=== PATIENT | male | born 1955 | race African-American/Black ===

== ENCOUNTER 2020-12-16 11:16 | Emergency (ER) | payer OTHER, SELFPAY ==
--- NOTE | ~2020-12-16 | XR_ITS ---
EXAMINATION: XR ELBOW, RIGHT CLINICAL INFORMATION: Pain COMPARISON: None TECHNIQUE: AP, lateral, and oblique views of the right elbow. FINDINGS: There is normal bony mineralization. No fracture, dislocation, or destructive process. No capsular effusion demonstrated. There is no joint narrowing or erosive change or chondrocalcinosis. No epicondylar or olecranon spurring. XR/XR elbow RT min 3V IMPRESSION: Normal right elbow.
[2020-12-16 13:55] VITALS: BP 139/80; PULSE 79; RESP 16; TEMP 37; O2SAT 99; BMI 25.1
--- NOTE | 2020-12-16 14:01 | ED.EXTPRO ---
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 Patient denies any blunt trauma to right upper extremity. Patient states no swelling, coldness, hotness, redness, chest pain, shortness of breath, fever, or chills. Patient states elbow pain on movement MD Complaint: extremity pain Related Data Home Medications Medication Instructions Recorded Confirmed aspirin 81 mg tablet,delayed 81 mg PO DAILY 03/14/20 06/20/20 release labetalol 200 mg tablet 200 mg PO BID 03/14/20 06/20/20 Previous Rx's Medication Instructions Recorded hydrochlorothiazide 25 mg tablet 25 mg PO DAILY #90 tab 04/12/20 cyclobenzaprine 10 mg PO TID PRN #18 tab 12/16/20 naproxen 500 mg PO BID PRN #20 tab 12/16/20 prednisone 40 mg PO DAILY 5 Days #10 tab 12/16/20 Allergies Allergy/AdvReac Type Severity Reaction Status Date / Time No Known Allergies Allergy Verified 06/20/20 09:20 [No Known Allergies*] Review of Systems Review of Systems: Yes all other systems are reviewed and are negative Constitutional: Constitutional: Reports as per HPI and Reports no additional constitutional complaints Eyes: Eyes: Reports as per HPI and Reports no additional eye complaints ENT: Reports system reviewed and no additional complaints, except as documented and Reports as per HPI Cardiovascular: Cardiovascular: Reports as per HPI and Reports no additional cardiovascular complaints Respiratory: Respiratory: Reports as per HPI and Reports no additional respiratory complaints Gastrointestinal: Gastrointestinal: Reports as per HPI and Reports no additional gastrointestinal complaints Genitourinary: Genitourinary: Reports no additional male genitourinary complaints and Reports as per HPI Musculoskeletal: Musculoskeletal: Reports no additional musculoskeletal complaints, Reports as per HPI and Reports arthralgias (Elbow pain) Neurologic: Reports system reviewed and no additional complaints, except as documented and Reports as per HPI [facility] Past Medical History Medical History (Updated 12/16/20 @ 14:42 by BARRY Rizo) High blood pressure Surgical History H/O rectal polypectomy Family History Family History Father Multiple sclerosis Mother Breast cancer Social History Social History Alcohol intake: current Alcohol intake frequency: holidays/special occasions only Advance Directives: Yes Advance Directives Information Provided: Yes Advance Directives on File: No Physical Exam Vital Signs: Vital Signs: Last Vital Signs Temp 98.6 F 12/16/20 13:55 Pulse 79 12/16/20 13:55 Resp 16 12/16/20 13:55 BP 139/80 12/16/20 13:55 Pulse Ox 99 12/16/20 13:55 Body Mass Index 25.1 Const: General: cooperative, healthy appearing, comfortable, no acute distress, well developed, alert, awake and Physically active Orientation/consciousness: patient oriented x3 HENMT: Head: Yes normal to inspection, Yes No palpable skull fracture present, Yes normocephalic, Yes atraumatic and No abrasion Eyes: General: appearance normal, both eyes and all related structures Neck: Neck: Yes normal visual inspection, Yes full ROM, Yes no lymphadenopathy, Yes no meningeal signs, Yes trachea midline, Yes supple and No tender Chest: Chest palpation & inspection: normal inspection of the chest and normal palpation of entire chest wall Resp: Effort & Inspection: normal respiratory effort and able to speak in complete sentences Cardio: Jugular venous distension: no JVD Heart sounds: S1 normal heart sound present and S2 normal heart sound present GI: Inspection: Yes normal to inspection and No abdominal wall ecchymosis Palpation (GI): Soft to palpation, not firm, nontender, no guarding and not rigid : General: No CVA tenderness and Yes no CVA tenderness Back/Spine/Pelvis: Back: no CVA tenderness, No CVA tenderness and No back tenderness Skin: General skin exam: no rashes or lesions noted and elasticity normal Neuro: General: patient oriented x3, gait normal, no meningeal signs and CN's II-XI intact bilaterally Cranial nerves: Yes CN's II-XII intact bilaterally Extrem: Shoulder/upper arm images: 1. Tenderness on the area and also pain on range of motion. Negative for any erythema, warmth,swelling, deformity, ecchymosis, or bluish/black discoloration. Vascular neuro exam is intact. Motor exam intact, but with pain. Rest of extremity negative for any tenderness, ecchymosis, erythema, deformity, coldness,or black bluish discoloration. Psych: Appearance: grossly normal, well kempt and not disheveled Course Course Course Narrative: Patient sent for elbow x-ray. Reevaluation(s) Reevaluation #1: X-ray negative for fracture. Patient informed he may have elbow sprain. Patient informed MRI to make sure there is no tendinitis/tenderness or ligament tear due to overuse of elbow. Not suspecting DVT, cellulitis, or arterial emboli. Time: 14:41 MDM - Extremity (Nontraumatic) MDM Narrative Medical decision making narrative: Elbow sprain Discharge Plan Discharge Clinical Impression: Elbow sprain Patient Disposition: Home, Self-Care Instructions: Elbow Sprain (ED) Additional Instructions: X-ray came back negative for fracture. Recommend follow-up with PCP for MRI if pain continues to evaluate for possible tendinitis, or ligament/tendon tear from overuse of right elbow. Rest right upper extremity for at least 3 days. Return to the ED immediately if there is any swelling, coldness, hotness, bluish black discoloration of fingertips, chest pain, shortness of breath, redness, red streaks, or any other concerning symptoms. Please follow-up with PCP Prescriptions: New naproxen 500 mg tablet 500 mg PO BID PRN (Reason: pain) Qty: 20 RF: 0 prednisone 20 mg tablet 40 mg PO DAILY 5 Days Qty: 10 RF: 0 cyclobenzaprine 10 mg tablet 10 mg PO TID PRN (Reason: pain) Qty: 18 RF: 0 No Action hydrochlorothiazide 25 mg tablet 25 mg PO DAILY Qty: 90 RF: 8 labetalol 200 mg tablet 200 mg PO BID RF: 0 aspirin [Adult Low Dose Aspirin] 81 mg tablet,delayed release (DR/EC) 81 mg PO DAILY RF: 0 Interventions: ED Discharge Assessment Last Done: 12/16/20 14:53 Discharge Date/Time: 12/16/20 14:53 Print Language: [place]ib[place]ian
[2020-12-16] MEDS: Ibuprofen 800 MG TABLET PO (14:18)
== END 2020-12-16 14:53 | disposition home or self-care (01) ==
PROVIDERS: Emergency Provider Emergency Medicine Emergency Medical Services; PCP Internal Medicine
DX: S53.401A Unspecified sprain of right elbow, initial encounter (principal); M79.621 Pain in right upper arm; X50.3XXA Overexertion from repetitive movements, initial encounter; Y93.H2 Activity, gardening and landscaping; Y92.9 Unspecified place or not applicable; Y99.9 Unspecified external cause status; Z79.899 Other long term (current) drug therapy; Z79.82 Long term (current) use of aspirin
CPT/HCPCS: 73080; 99283

== ENCOUNTER 2021-06-19 12:00 | Outpatient (REF) | payer OTHER, SELFPAY ==
[2021-06-19 12:20] LABS: Binax Internal Control QC Valid; Binax Now Covid-19 Ag Negative (Negative)
== END 2021-06-19 12:01 | disposition home or self-care (01) ==
LOC: HO.LAB 12:00
PROVIDERS: Visit Provider Internal Medicine
DX: Z20.822 Contact with and (suspected) exposure to COVID-19 (principal)
CPT/HCPCS: C9803

== ENCOUNTER 2021-10-16 08:42 | Outpatient (REF) | payer MEDICARE, MEDICAID, SELFPAY ==
[2021-10-16 09:23] LABS: MANUAL DIFF FLAG NO
[2021-10-16 09:41] LABS: Basophils Percent Auto 0.3 % (0-2); Eosinophils Absolute Auto 0.1 X10*3/uL (0.0-0.4); Eosinophils Percent Auto 1.9 % (0-4); Hematocrit 38.5 % (42.0-52.0); Hemoglobin 12.8 g/dl (14.0-18.0); Imm Gran Abs Auto 0.01 X10*3/uL (0.00-0.03); Imm Gran Pct Auto 0.2 % (0.0-0.4); Lymphocytes Percent Auto 31.1 % (20-40); Mean Corpuscular HGB Conc 33.2 g/dl (31.0-36.0); Mean Corpuscular Hemoglobin 31.3 pg (27.0-33.0); Mean Corpuscular Volume 94.1 fL (80.0-98.0); Mean Platelet Volume 9.6 fL (9.4-12.4); Monocytes Absolute Auto 0.4 X10*3/uL (0.1-1.2); Monocytes Percent Auto 6.3 % (2-11); Neutrophils Absolute Auto 3.9 x10*3/uL (2.0-8.3); Neutrophils Percent Auto 60.2 % (45-73); Platelet Count 152 X10*3/uL (160-400); Red Blood Count 4.09 X10*6/uL (4.60-5.80); Red Cell Distribution Width 14.8 % (11.0-16.0); White Blood Count 6.4 X10*3/uL (4.8-10.8)
[2021-10-16 10:03] LABS: Alanine Aminotransferase 20 U/L (0-40); Alkaline Phosphatase 41 U/L (39-117); Anion Gap 13 (12-20); Aspartate Amino Transferase 28 U/L (5-37); Bilirubin Total 0.9 mg/dL (0.0-1.0); Blood Urea Nitrogen 15 mg/dL (9-16); Calcium 9.2 mg/dL (8.4-10.2); Carbon Dioxide 28 mmol/L (22-29); Chloride 102 mmol/L (96-108); Cholesterol 227 mg/dL; Estimated Glomerular Filt Rate 49; Glucose Fasting 102 mg/dL (60-99); HDL Cholesterol 76 mg/dL; LDL Cholesterol Calculated 139 mg/dl; Potassium 3.7 mmol/L (3.3-5.1); Sodium 139 mmol/L (135-145); Total Protein 6.6 g/dL (6.5-8.0); Triglycerides 62 mg/dL
[2021-10-16 10:26] LABS: Prostate Specific Antigen Scr 3.52 ng/mL (<0.05-4.0); Thyroid Stimulating Hormone 7.64 uIU/mL (0.32-4.0)
== END 2021-10-16 08:43 | disposition home or self-care (01) ==
LOC: HO.LAB 08:42
PROVIDERS: PCP Internal Medicine; Visit Provider Internal Medicine
DX: Z00.00 Encounter for general adult medical examination without abnormal findings (principal); Z12.5 Encounter for screening for malignant neoplasm of prostate; Z13.0 Encounter for screening for diseases of the blood and blood-forming organs and certain disorders involving the immune mechanism; Z13.9 Encounter for screening, unspecified; I10 Essential (primary) hypertension
CPT/HCPCS: 36415; 80053; 80061; 84153; 84443; 85025

== ENCOUNTER 2023-02-27 08:46 | Outpatient (AMB) | payer MEDICARE, MEDICAID, SELFPAY ==
[2023-02-27 08:48] VITALS: BP 110/62; PULSE 92; O2SAT 96; BMI 22.7
--- NOTE | 2023-02-27 08:48 | A.OFFPC_ITS ---
Vital Signs 02/27/23 08:48 Height 5 ft 10 in Weight 158 lb BMI 22.7 BP 110/62 Blood Pressure Location Lt brachial Position Sitting Pulse 92 Pulse Source Pulse Oximeter Pulse Oximetry (%) 96 Oxygen Delivery Method Room Air Intake Visit Reasons: Cognitive check Optometry Teacher: Not Required per policy Accompanied by: Self / Same As Patient Allergies corn Allergy (Unknown, Verified 02/27/23 08:53) Unknown ragweed pollen Allergy (Unknown, Verified 02/27/23 08:53) Unknown Medication List - Last Reconciled 02/27/23 by Chauncey Gunter MD aspirin (Adult Low Dose Aspirin) 81 mg PO DAILY fluticasone propionate 50 mcg/actuation (Flonase Allergy Relief) 1 spray intranasal BID hydrochlorothiazide 25 mg PO DAILY labetalol 200 mg PO BID Tobacco use date assessed: 10/05/22 Fall risk assessment: No Falls in past year Last assessed Fall Risk: 02/27/23 Dental Screening Dental Screen Date: 02/27/23 Did you have a dental visit in the last 12 months?: No Did you have a dental problem in the last 6 months where you did not have access to dental care?: No Was dental information given to patient?: Patient has dentist HPI Cognitive check HPI Details Allergic rhinitis; on flonase but symptoms persist; not on antihis PFSH Medical History High blood pressure Surgical History H/O rectal polypectomy Family History Father Multiple sclerosis Mother Breast cancer Social History Housing: House Alcohol intake: current Alcohol intake frequency: a few times a week Patient Tobacco Use Status: Never used Tobacco e-Cigarette/Vaping Use: Never Used Second Hand Smoke Exposure: No service: No Current occupational status: unemployed Cognitive needs: No Hearing needs: No Vision needs: Yes (Glasses) Questionnaire PHQ-9 Over the last 2 weeks, how often have you been bothered by any of the following problems? 1. Little interest or pleasure in doing things: not at all 2. Feeling down, depressed, or hopeless: not at all 3. Trouble falling or staying asleep, or sleeping too much: not at all 4. Feeling tired or having little energy: not at all 5. Poor appetite or overeating: not at all 6. Feeling bad about yourself - or that you are a failure or have let yourself or your family down: not at all 7. Trouble concentrating on things, such as reading the newspaper or watching television: not at all 8. Moving or speaking so slowly that other people could have noticed. Or the opposite - being so fidgety or restless that you have been moving around a lot more than usual: not at all 9. Thoughts that you would be better off or of hurting yourself in some way: not at all Total score: 0 Depression Screening Interpretation: Negative Depression Screening Done: Yes Source: Developed by Drs. Fausto Bailey, Stefania Tiwari, Donald Ross and colleagues, with an educational durga from [employer]. Thrive Questionnaire Date Thrive assessed: 02/27/23 I am a: Patient What is your living situation today?: I have a steady place to live Within the past 12 months, did the food you bought not last and you didn't have the money to get more?: Never true Within the past 12 months, did you worry whether your food would run out before you got money to buy more?: Never true Do you have trouble paying for medicines?: No Do you have trouble getting transportation to medical appointments?: No Do you have trouble paying your heating and electricity bill?: No Do you have trouble taking care of your child, family member or friend?: No Do you have trouble with day-to-day activities such as bathing, preparing meals, shopping, managing finances, etc.?: No Are you currently unemployed and looking for a job?: No Are you interested in more education?: No Please select the resources that you would like help with: None AUDIT C Alcohol Use Questionnaire (AUDIT-C) 1. How often do you have a drink containing alcohol?: 2-3 times a week 2. How many drinks containing alcohol do you have on a typical day when you are drinking?: 1 or 2 Total Score: 3 JOYCE-7 AMB Questionnaire JOYCE-7 Date JOYCE - 7 assessed: 10/05/22 Source: Developed by Drs. Fausto Bailey, Stefania Tiwari, Donald Ross and colleagues, with an educational durga from [employer]. Review of Systems Const Denies chills, Denies headache(s) and Denies weight loss ENT Denies headache(s) Card Denies chest pain, Denies syncope, Denies irregular heart rhythm and Denies dyspnea Resp Denies chest congestion, Denies cough and Denies dyspnea GI Denies abdominal pain, Denies change in stool character, Denies nausea and Denies vomiting Musc Denies deformity and Denies joint swelling Neuro Denies syncope and Denies headache(s) Physical exam (Primary Care) Vital Signs: Last Vital Signs Pulse 92 02/27/23 08:48 BP 110/62 02/27/23 08:48 Pulse Ox 96 02/27/23 08:48 Oxygen Delivery Method Room Air 02/27/23 08:48 BMI result Body Mass Index 22.7 Tobacco/Smoking Status: Tobacco use Status Tobacco use date assessed 10/05/22 02/27/23 08:54 Patient Tobacco Use Status Never used Tobacco 02/27/23 08:54 e-Cigarette/Vaping Use Never Used 02/27/23 08:54 PHQ-9: PHQ-9 Score PHQ-9: Total score 0 02/27/23 08:54 Depression Screening Interpretation: Negative Thrive Assessment: Date of Thrive Assessment Date Thrive assessed 02/27/23 02/27/23 08:54 Const General: cooperative, comfortable, no acute distress and alert Neck Neck: Yes no lymphadenopathy Thyroid: Thyroid normal Resp Effort & Inspection: normal respiratory effort Auscultation: clear to auscultation bilaterally Percussion: percussion normal Cardio Jugular venous distension: no JVD Palpation: normal PMI Rate: regular rate Rhythm: regular rhythm Heart sounds: S1 normal heart sound present and S2 normal heart sound present GI Inspection: Yes normal to inspection Palpation (GI): No hepatosplenomegaly present Skin General skin exam: no rashes or lesions noted Extrem General: Yes no clubbing, cyanosis or edema Assessment and Plan Assessment & Plan (1) Allergic rhinitis: Code(s): J30.9 - Allergic rhinitis, unspecified Plan: add rx Medications: New loratadine (Allergy Relief (loratadine)) 10 mg PO DAILY 60 tabs 3RF Coding Level of Care Code Est Pt Level 3 (91573) Diagnoses Allergic rhinitis J30.9
== END 2023-02-27 09:10 | disposition home or self-care (01) ==
PROVIDERS: PCP Internal Medicine; Visit Provider Internal Medicine
DX: J30.9 Allergic rhinitis, unspecified (principal)
CPT/HCPCS: 99213

== ENCOUNTER 2023-03-22 09:33 | Outpatient (AMB) | payer MEDICARE, MEDICAID, SELFPAY ==
[2023-03-22 09:49] VITALS: BP 120/84; PULSE 88; O2SAT 100; BMI 22.8
--- NOTE | 2023-03-22 09:49 | A.OFFPC_ITS ---
Vital Signs 03/22/23 09:49 Height 5 ft 10 in Weight 159 lb BMI 22.8 BP 120/84 Blood Pressure Location Lt brachial Position Sitting Pulse 88 Pulse Source Pulse Oximeter Pulse Oximetry (%) 100 Oxygen Delivery Method Room Air Intake Visit Reasons: Annual exam Gyroscope Technician Required: No Accompanied by: Self / Same As Patient Allergies corn Allergy (Unknown, Verified 03/22/23 09:49) Unknown ragweed pollen Allergy (Unknown, Verified 03/22/23 09:49) Unknown Medication List - Last Reconciled 03/22/23 by Chauncey Gunter MD aspirin (Adult Low Dose Aspirin) 81 mg PO DAILY fluticasone propionate 50 mcg/actuation (Flonase Allergy Relief) 1 spray intr anasal BID hydrochlorothiazide 25 mg PO DAILY labetalol 200 mg PO BID loratadine (Allergy Relief (loratadine)) 10 mg PO DAILY Tobacco use date assessed: 10/05/22 Fall risk assessment: No Falls in past year Last assessed Fall Risk: 03/22/23 Dental Screening Dental Screen Date: 03/22/23 Did you have a dental visit in the last 12 months?: No Did you have a dental problem in the last 6 months where you did not have access to dental care?: No Was dental information given to patient?: Patient has dentist HPI Annual exam HPI Details HTN on Rx; doing well; compliant [facility] Medical History High blood pressure Surgical History H/O rectal polypectomy Family History Father Multiple sclerosis Mother Breast cancer Social History Housing: House Alcohol intake: current Alcohol intake frequency: a few times a week Patient Tobacco Use Status: Never used Tobacco e-Cigarette/Vaping Use: Never Used Second Hand Smoke Exposure: No service: No Current occupational status: unemployed Cognitive needs: No Hearing needs: No Vision needs: Yes (Glasses) Questionnaire PHQ-9 Over the last 2 weeks, how often have you been bothered by any of the following problems? 1. Little interest or pleasure in doing things: not at all 2. Feeling down, depressed, or hopeless: not at all 3. Trouble falling or staying asleep, or sleeping too much: not at all 4. Feeling tired or having little energy: not at all 5. Poor appetite or overeating: not at all 6. Feeling bad about yourself - or that you are a failure or have let yourself or your family down: not at all 7. Trouble concentrating on things, such as reading the newspaper or watching television: not at all 8. Moving or speaking so slowly that other people could have noticed. Or the opposite - being so fidgety or restless that you have been moving around a lot more than usual: not at all 9. Thoughts that you would be better off or of hurting yourself in some way: not at all Total score: 0 Depression Screening Interpretation: Negative Depression Screening Done: Yes 49704 - PHQ-9 Billing: Yes Source: Developed by Drs. Fausto Bailey, Stefania Tiwari, Donald Ross and colleagues, with an educational durga from [employer]. Thrive Questionnaire Date Thrive assessed: 02/27/23 AUDIT C Alcohol Use Questionnaire (AUDIT-C) 1. How often do you have a drink containing alcohol?: 2-3 times a week 2. How many drinks containing alcohol do you have on a typical day when you are drinking?: 1 or 2 Total Score: 3 JOYCE-7 AMB Questionnaire JOYCE-7 Date JOYCE - 7 assessed: 10/05/22 Source: Developed by Drs. Fausto Bailey, Stefania Tiwari, Donald Ross and colleagues, with an educational durga from [employer]. Review of Systems Const Denies chills, Denies fatigue, Denies headache(s) and Denies weight loss Eyes Denies change in vision, Denies diplopia and Denies eye pain ENT Denies vertigo, Denies dizziness, Denies headache(s) and Denies nasal discharge Card Denies chest pain, Denies rapid heart rate and Denies dyspnea on exertion Resp Denies chest congestion, Denies cough, Denies pain with cough and Denies dyspnea on exertion GI Denies abdominal pain, Denies hematochezia and Denies change in bowel habits Musc Denies myalgias, Denies arthralgias and Denies joint swelling Skin/Breast Denies lesions and Denies unusual bruising Neuro Denies vertigo, Denies dizziness, Denies headache(s) and Denies focal weakness Endo Denies fatigue Physical exam (Primary Care) Vital Signs: Last Vital Signs Pulse 88 03/22/23 09:49 BP 120/84 03/22/23 09:49 Pulse Ox 100 03/22/23 09:49 Oxygen Delivery Method Room Air 03/22/23 09:49 BMI result Body Mass Index 22.8 Tobacco/Smoking Status: Tobacco use Status Tobacco use date assessed 10/05/22 03/22/23 09:54 Patient Tobacco Use Status Never used Tobacco 03/22/23 09:54 e-Cigarette/Vaping Use Never Used 03/22/23 09:54 PHQ-9: PHQ-9 Score PHQ-9: Total score 0 03/22/23 09:54 Depression Screening Interpretation: Negative Thrive Assessment: Date of Thrive Assessment Date Thrive assessed 02/27/23 03/22/23 09:54 Const General: cooperative, healthy appearing and no acute distress Orientation/consciousness: oriented to person, oriented to place and oriented to time HENMT Head: Yes normal to inspection, Yes normocephalic and Yes atraumatic Mouth: Normal oral and palatal mucosa present and tongue normal Throat: Yes posterior oropharynx normal and Yes uvula midline Eyes General: appearance normal, both eyes and all related structures Neck Neck: Yes normal visual inspection, Yes full ROM and Yes no lymphadenopathy Thyroid: Thyroid normal Carotids: normal carotid upstroke Chest Chest palpation & inspection: normal inspection of the chest Resp Effort & Inspection: normal respiratory effort and able to speak in complete sentences Auscultation: clear to auscultation bilaterally Cardio Jugular venous distension: no JVD Palpation: normal PMI Rate: regular rate Rhythm: regular rhythm Heart sounds: S1 normal heart sound present and S2 normal heart sound present GI Inspection: Yes normal to inspection Palpation (GI): Soft to palpation and No hepatosplenomegaly present Auscultation: normal bowel sounds General: Yes no CVA tenderness Back/Spine/Pelvis Back: no CVA tenderness Skin General skin exam: no rashes or lesions noted Neuro General: oriented to person, oriented to place and oriented to time Extrem General: Yes normal to inspection and Yes full ROM Assessment and Plan Assessment & Plan (1) Physical exam: Code(s): Z00.00 - Encounter for general adult medical examination without abnormal findings Plan: do labs (2) Hypertension: Code(s): I10 - Essential (primary) hypertension Plan: stable; same rx Orders: Orders Comprehensive Rhame. Panel Fast Today N28.9 - Disorder of kidney and ureter, unspecified Lipid Panel Today E78.5 - Hyperlipidemia, unspecified Thyroid Stimulating Hormone Today E03.9 - Hypothyroidism, unspecified Complete Blood Count Auto Diff Today D64.9 - Anemia, unspecified Coding Level of Care Code Est Pt Prev Care >65y(78430) Diagnoses Physical exam Z00.00 Hypertension I10
== END 2023-03-22 10:30 | disposition home or self-care (01) ==
PROVIDERS: PCP Internal Medicine; Visit Provider Internal Medicine
DX: Z00.00 Encounter for general adult medical examination without abnormal findings (principal); I10 Essential (primary) hypertension
CPT/HCPCS: 99397

== ENCOUNTER 2023-03-23 09:22 | Outpatient (REF) | payer MEDICARE, MEDICAID, SELFPAY ==
[2023-03-23 10:18] LABS: Basophils Percent Auto 0.6 % (0-2); Eosinophils Absolute Auto 0.1 X10*3/uL (0.0-0.4); Eosinophils Percent Auto 1.1 % (0-4); Hematocrit 42.3 % (42.0-52.0); Hemoglobin 14.2 g/dl (14.0-18.0); Imm Gran Abs Auto 0.03 X10*3/uL (0.00-0.03); Imm Gran Pct Auto 0.6 % (0.0-0.4); MANUAL DIFF FLAG SCAN; Mean Corpuscular HGB Conc 33.6 g/dl (31.0-36.0); Mean Corpuscular Hemoglobin 32.2 pg (27.0-33.0); Mean Corpuscular Volume 95.9 fL (80.0-98.0); Mean Platelet Volume 10.4 fL (9.4-12.4); Monocytes Absolute Auto 0.3 X10*3/uL (0.1-1.2); Monocytes Percent Auto 5.7 % (2-11); Neutrophils Absolute Auto 2.8 x10*3/uL (2.0-8.3); PLT CLUMP 1; Red Blood Count 4.41 X10*6/uL (4.60-5.80); Red Cell Distribution Width 14.2 % (11.0-16.0); SCAN SMEAR FLAG 1
[2023-03-23 10:41] LABS: Alanine Aminotransferase 15 U/L (0-40); Alkaline Phosphatase 29 U/L (39-117); Anion Gap 17 (12-20); Aspartate Amino Transferase 28 U/L (5-37); Bilirubin Total 0.5 mg/dL (0.0-1.0); Blood Urea Nitrogen 14 mg/dL (9-16); Calcium 9.5 mg/dL (8.4-10.2); Carbon Dioxide 21 mmol/L (22-29); Chloride 106 mmol/L (96-108); Cholesterol 223 mg/dL (<200); Estimated Glomerular Filt Rate 51; Glucose Fasting 110 mg/dL (60-99); HDL Cholesterol 56 mg/dL (>40); LDL Cholesterol Calculated 148 mg/dL (<100); Potassium 3.8 mmol/L (3.3-5.1); Sodium 140 mmol/L (135-145); Total Protein 7.1 g/dL (6.5-8.0); Triglycerides 98 mg/dL (<150)
[2023-03-23 10:46] LABS: Platelet Count 127 X10*3/uL (160-400); White Blood Count 5.2 X10*3/uL (4.8-10.8)
[2023-03-23 10:47] LABS: SLIDE REVIEW VERIFIED
[2023-03-23 11:11] LABS: Thyroid Stimulating Hormone 5.06 uIU/mL (0.32-4.0)
== END 2023-03-23 09:23 | disposition home or self-care (01) ==
LOC: HO.LAB 09:22
PROVIDERS: PCP Internal Medicine; Visit Provider Internal Medicine
DX: N28.9 Disorder of kidney and ureter, unspecified (principal); D64.9 Anemia, unspecified; E03.9 Hypothyroidism, unspecified; E78.5 Hyperlipidemia, unspecified
CPT/HCPCS: 36415; 80053; 80061; 84443; 85025

== ENCOUNTER 2023-05-07 11:32 | Outpatient (REF) | payer MEDICARE, MEDICAID, SELFPAY ==
[2023-05-07 11:54] LABS: MANUAL DIFF FLAG NO
[2023-05-07 12:41] LABS: Basophils Percent Auto 0.5 % (0-2); Eosinophils Percent Auto 0.5 % (0-4); Hemoglobin 13.7 g/dl (14.0-18.0); Imm Gran Abs Auto 0.03 X10*3/uL (0.00-0.03); Imm Gran Pct Auto 0.4 % (0.0-0.4); Lymphocytes Percent Auto 24.7 % (20-40); Mean Corpuscular HGB Conc 34.3 g/dl (31.0-36.0); Mean Corpuscular Hemoglobin 32.4 pg (27.0-33.0); Mean Corpuscular Volume 94.6 fL (80.0-98.0); Monocytes Absolute Auto 0.5 X10*3/uL (0.1-1.2); Monocytes Percent Auto 5.7 % (2-11); Neutrophils Absolute Auto 5.6 x10*3/uL (2.0-8.3); Neutrophils Percent Auto 68.2 % (45-73); Platelet Count 167 X10*3/uL (160-400); Red Blood Count 4.23 X10*6/uL (4.60-5.80); Red Cell Distribution Width 13.9 % (11.0-16.0); White Blood Count 8.2 X10*3/uL (4.8-10.8)
[2023-05-07 13:14] LABS: Alanine Aminotransferase 12 U/L (0-40); Albumin Level 4.4 g/dL (3.5-5.0); Alkaline Phosphatase 43 U/L (39-117); Anion Gap 13 (12-20); Aspartate Amino Transferase 20 U/L (5-37); Bilirubin Total 0.9 mg/dL (0.0-1.0); Blood Urea Nitrogen 17 mg/dL (9-16); Calcium 9.7 mg/dL (8.4-10.2); Carbon Dioxide 28 mmol/L (22-29); Chloride 102 mmol/L (96-108); Estimated Glomerular Filt Rate 44; Glucose Random 121 mg/dL (60-115); Potassium 4.2 mmol/L (3.3-5.1); Sodium 139 mmol/L (135-145); Total Protein 7.3 g/dL (6.5-8.0)
== END 2023-05-07 11:33 | disposition home or self-care (01) ==
LOC: HO.LAB 11:32
PROVIDERS: PCP Internal Medicine; Visit Provider Internal Medicine Medical Oncology
DX: C81.90 Hodgkin lymphoma, unspecified, unspecified site (principal)
CPT/HCPCS: 36415; 80053; 85025

== ENCOUNTER 2023-05-14 13:15 | Outpatient (AMB) | payer MEDICARE, MEDICAID, SELFPAY ==
[2023-05-14 13:16] VITALS: BP 122/64; BMI 22.4
--- NOTE | 2023-05-14 13:16 | MHC.PC.OV ---
Vital Signs 05/14/23 13:16 Height 5 ft 10 in Weight 156 lb BMI 22.4 BP 122/64 Blood Pressure Location Lt brachial Position Sitting Pulse Source Pulse Oximeter Oxygen Delivery Method Room Air Intake Visit Reasons: possible gout on feet Air Gun Operator Required: No Supervisor [place]: Not Required per policy Accompanied by: Self / Same As Patient Allergies corn Allergy (Unknown, Verified 05/14/23 13:17) Unknown ragweed pollen Allergy (Unknown, Verified 05/14/23 13:17) Unknown Medication List - Last Reconciled 05/14/23 by Chauncey Gunter MD aspirin (Adult Low Dose Aspirin) 81 mg PO DAILY fluticasone propionate 50 mcg/actuation (Flonase Allergy Relief) 1 spray intranasal BID hydrochlorothiazide 25 mg PO DAILY labetalol 200 mg PO BID loratadine (Allergy Relief (loratadine)) 10 mg PO DAILY methylprednisolone (Medrol (Mynor)) PO PER PKG DIR Tobacco use date assessed: 10/05/22 Fall risk assessment: No Falls in past year Last assessed Fall Risk: 05/14/23 Dental Screening Dental Screen Date: 05/14/23 Did you have a dental visit in the last 12 months?: Yes Did you have a dental problem in the last 6 months where you did not have access to dental care?: No Was dental information given to patient?: Patient has dentist HPI possible gout on feet HPI Details right great to mtp swollen red and painful for a week PFSH Medical History High blood pressure Surgical History H/O rectal polypectomy Family History Father Multiple sclerosis Mother Breast cancer Social History Housing: House Alcohol intake: current Alcohol intake frequency: a few times a week Patient Tobacco Use Status: Never used Tobacco e-Cigarette/Vaping Use: Never Used Second Hand Smoke Exposure: No service: No Current occupational status: unemployed Cognitive needs: No Hearing needs: No Vision needs: Yes (Glasses) Questionnaire Thrive Questionnaire Date Thrive assessed: 02/27/23 JOYCE-7 AMB Questionnaire JOYCE-7 Date JOYCE - 7 assessed: 10/05/22 Source: Developed by Drs. Fausto Bailey, Stefania Tiwari, Donald oRss and colleagues, with an educational durga from [employer]. Review of Systems Const Denies chills, Denies headache(s) and Denies weight loss ENT Denies headache(s) Card Denies chest pain, Denies syncope, Denies irregular heart rhythm and Denies dyspnea Resp Denies chest congestion, Denies cough and Denies dyspnea GI Denies abdominal pain, Denies change in stool character, Denies nausea and Denies vomiting Musc Denies deformity and Denies joint swelling Neuro Denies syncope and Denies headache(s) Physical exam (Primary Care) Vital Signs: Last Vital Signs BP 122/64 05/14/23 13:16 Oxygen Delivery Method Room Air 05/14/23 13:16 BMI result Body Mass Index 22.4 Tobacco/Smoking Status: Tobacco use Status Tobacco use date assessed 10/05/22 05/14/23 13:22 Patient Tobacco Use Status Never used Tobacco 05/14/23 13:22 e-Cigarette/Vaping Use Never Used 05/14/23 13:22 Thrive Assessment: Date of Thrive Assessment Date Thrive assessed 02/27/23 05/14/23 13:22 Const General: cooperative, comfortable, no acute distress and alert Neck Neck: Yes no lymphadenopathy Thyroid: Thyroid normal Resp Effort & Inspection: normal respiratory effort Auscultation: clear to auscultation bilaterally Percussion: percussion normal Cardio Jugular venous distension: no JVD Palpation: normal PMI Rate: regular rate Rhythm: regular rhythm Heart sounds: S1 normal heart sound present and S2 normal heart sound present GI Inspection: Yes normal to inspection Palpation (GI): No hepatosplenomegaly present Skin General skin exam: no rashes or lesions noted Extrem General: Yes no clubbing, cyanosis or edema Assessment and Plan Assessment & Plan (1) Gout: Code(s): M10.9 - Gout, unspecified Orders: Orders Uric Acid Today M10.9 - Gout, unspecified XR foot RT 2V Today M79.673 - Pain in unspecified foot Medications: New methylprednisolone (Medrol (Mynor)) PO PER PKG DIR 21 ea 0RF Coding Level of Care Code Est Pt Level 3 (13158) Diagnoses Gout M10.9
== END 2023-05-14 13:37 | disposition home or self-care (01) ==
PROVIDERS: PCP Internal Medicine; Visit Provider Internal Medicine
DX: M10.9 Gout, unspecified (principal)
CPT/HCPCS: 99213

== ENCOUNTER 2023-05-14 13:43 | Outpatient (REF) | payer MEDICARE, MEDICAID, SELFPAY ==
[2023-05-14 15:17] LABS: Uric Acid 7.4 mg/dL (3.4-7.0)
== END 2023-05-14 13:44 | disposition home or self-care (01) ==
LOC: HO.XRAY 13:43
PROVIDERS: PCP Internal Medicine; Visit Provider Internal Medicine
DX: M10.9 Gout, unspecified (principal); M79.671 Pain in right foot
CPT/HCPCS: 36415; 73620; 84550

== ENCOUNTER 2023-07-23 11:23 | Outpatient (AMB) | payer MEDICARE, MEDICAID, SELFPAY ==
--- NOTE | 2023-07-23 11:28 | A.OFFPC_ITS ---
Vital Signs 07/23/23 11:29 Height 5 ft 10 in Weight 154 lb BMI 22.1 BP 102/70 Blood Pressure Location Lt brachial Position Sitting Pulse 90 Pulse Source Pulse Oximeter Pulse Oximetry (%) 100 Oxygen Delivery Method Room Air Intake Visit Reasons: follow up Meat Pickler Required: No Traffic Warehouse Supervisor: Not Required per policy Accompanied by: Self / Same As Patient Allergies corn Allergy (Unknown, Verified 07/23/23 11:29) Unknown ragweed pollen Allergy (Unknown, Verified 07/23/23 11:29) Unknown Medication List - Last Reconciled 07/23/23 by Chauncey Gunter MD aspirin (Adult Low Dose Aspirin) 81 mg PO DAILY hydrochlorothiazide 25 mg PO DAILY labetalol 200 mg PO BID Tobacco use date assessed: 07/23/23 Fall risk assessment: No Falls in past year Last assessed Fall Risk: 07/23/23 Dental Screening Dental Screen Date: 07/23/23 Did you have a dental visit in the last 12 months?: No Did you have a dental problem in the last 6 months where you did not have access to dental care?: No Was dental information given to patient?: Patient has dentist HPI follow up HPI Details HTN on Rx; doing well PFSH Medical History High blood pressure Surgical History H/O rectal polypectomy Family History Father Multiple sclerosis Mother Breast cancer Social History Housing: House Alcohol intake: current Alcohol intake frequency: a few times a week Patient Tobacco Use Status: Never used Tobacco e-Cigarette/Vaping Use: Never Used Second Hand Smoke Exposure: No service: No Current occupational status: unemployed Cognitive needs: No Hearing needs: No Vision needs: Yes (Glasses) Questionnaire PHQ-9 Over the last 2 weeks, how often have you been bothered by any of the following problems? 1. Little interest or pleasure in doing things: not at all 2. Feeling down, depressed, or hopeless: not at all 3. Trouble falling or staying asleep, or sleeping too much: not at all 4. Feeling tired or having little energy: not at all 5. Poor appetite or overeating: not at all 6. Feeling bad about yourself - or that you are a failure or have let yourself or your family down: not at all 7. Trouble concentrating on things, such as reading the newspaper or watching television: not at all 8. Moving or speaking so slowly that other people could have noticed. Or the opposite - being so fidgety or restless that you have been moving around a lot more than usual: not at all 9. Thoughts that you would be better off or of hurting yourself in some way: not at all Total score: 0 Depression Screening Interpretation: Negative Depression Screening Done: Yes 03035 - PHQ-9 Billing: Yes Source: Developed by Drs. Fausto Bailey, Stefania Tiwari, Donald Ross and colleagues, with an educational durga from [employer]. Thrive Questionnaire Date Thrive assessed: 07/23/23 JOYCE-7 AMB Questionnaire JOYCE-7 Date JOYCE - 7 assessed: 10/05/22 Source: Developed by Drs. Fausto Bailey, Stefania Tiwari, Donald Ross and colleagues, with an educational durga from [employer]. Review of Systems Const Denies chills, Denies headache(s) and Denies weight loss ENT Denies headache(s) Card Denies chest pain, Denies syncope, Denies irregular heart rhythm and Denies dyspnea Resp Denies chest congestion, Denies cough and Denies dyspnea GI Denies abdominal pain, Denies change in stool character, Denies nausea and Denies vomiting Musc Denies deformity and Denies joint swelling Neuro Denies syncope and Denies headache(s) Physical exam (Primary Care) Vital Signs: Last Vital Signs Pulse 90 07/23/23 11:29 BP 102/70 07/23/23 11:29 Pulse Ox 100 07/23/23 11:29 Oxygen Delivery Method Room Air 07/23/23 11:29 BMI result Body Mass Index 22.1 Tobacco/Smoking Status: Tobacco use Status Tobacco use date assessed 07/23/23 07/23/23 11:34 Patient Tobacco Use Status Never used Tobacco 07/23/23 11:28 e-Cigarette/Vaping Use Never Used 07/23/23 11:28 PHQ-9: PHQ-9 Score PHQ-9: Total score 0 07/23/23 11:34 Depression Screening Interpretation: Negative Thrive Assessment: Date of Thrive Assessment Date Thrive assessed 07/23/23 07/23/23 11:34 Const General: cooperative, comfortable, no acute distress and alert Neck Neck: Yes no lymphadenopathy Thyroid: Thyroid normal Resp Effort & Inspection: normal respiratory effort Auscultation: clear to auscultation bilaterally Percussion: percussion normal Cardio Jugular venous distension: no JVD Palpation: normal PMI Rate: regular rate Rhythm: regular rhythm Heart sounds: S1 normal heart sound present and S2 normal heart sound present GI Inspection: Yes normal to inspection Palpation (GI): No hepatosplenomegaly present Skin General skin exam: no rashes or lesions noted Extrem General: Yes no clubbing, cyanosis or edema Assessment and Plan Assessment & Plan (1) Hypertension: Code(s): I10 - Essential (primary) hypertension Plan: stable; same rx Coding Level of Care Code Est Pt Level 3 (86132) Diagnoses Hypertension I10
[2023-07-23 11:29] VITALS: BP 102/70; PULSE 90; O2SAT 100; BMI 22.1
== END 2023-07-23 11:44 | disposition home or self-care (01) ==
PROVIDERS: PCP Internal Medicine; Visit Provider Internal Medicine
DX: I10 Essential (primary) hypertension (principal)
CPT/HCPCS: 99213

== ENCOUNTER 2023-10-04 10:53 | Emergency (ER) | payer MEDICARE, MEDICAID, SELFPAY ==
--- NOTE | ~2023-10-04 | CT_ITS ---
EXAMINATION: CT HEAD WITHOUT CONTRAST CLINICAL INFORMATION: Found down on the ground, Blunt head trauma without loss of consciousness, significant head injury and posttraumatic headache. COMPARISON: CT scan of brain on 09/23/2010, MRI of brain on 11/13/2012 TECHNIQUE: Contiguous axial imaging was performed from the skull base to vertex without intravenous administration of contrast. This CT examination was performed using dose optimization techniques as appropriate, variously including the following: *Automated exposure control *Adjustment of mA and/or kV according to patient size (this includes techniques or standardized protocols for targeted exams where dose is matched to indication/reason for exam; i.e. extremities or head) *Use of iterative reconstruction technique DLP: 784.44 mGy-cm FINDINGS: Ventricles, sulci and cisterns are dilated. Sagittally oriented chronic cerebral infarction is seen in right parasagittal superior right parietal lobe. There is no midline shift, no abnormal intra- or extra- axial fluid accumulation. Traore and white matter differentiation is normal. Bone window images show no evidence of skull fracture. Anterior medial corner left sphenoid sinus polypoid mucosal lesion is seen measuring 1.0 x 0[address]/CT head/brain wo IV con IMPRESSION: 1. Interval development of cerebral atrophy and ventriculomegaly. 2. No acute intracranial hemorrhage or extra-axial fluid accumulation. 3. 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 4. Interval development of Left sphenoid sinus polypoid mucosal lesion.
[2023-10-04 11:00] VITALS: BP 131/74; BP 134/96; PULSE 82; PULSE 94; RESP 18; TEMP 36.7; O2SAT 92; O2SAT 98; BMI 22.8
--- NOTE | 2023-10-04 11:01 | ECG_ITS ---
Test Reason : FALL HEAD INJURY Blood Pressure : / mmHG Vent. Rate : 081 BPM Atrial Rate : 081 BPM P-R Int : 202 ms QRS Dur : 088 ms QT Int : 370 ms P-R-T Axes : 068 -47 001 degrees QTc Int : 429 ms Normal sinus rhythm Left anterior fascicular block Minimal voltage criteria for LVH, may be normal variant ( R in aVL ) Abnormal ECG When compared with ECG of 12-NOV-2012 07:37, Left anterior fascicular block is now Present Nonspecific T wave abnormality no longer evident in Lateral leads Referred By: Mario Alberto Flores Electronically Signed By:Ulisses Salcedo
--- NOTE | 2023-10-04 11:02 | ED_ITS ---
HPI - Head Injury General Chief complaint: Fall Stated complaint: FALL Time Seen by Provider: 10/04/23 10:57 Source: patient Mode of arrival: ambulatory Limitations: no limitations History of Present Illness HPI Narrative: 67-year-old male otherwise healthy does take medications for blood pressure states he was woken by his found him on the kitchen floor. He does not recall how he got there he denies falling he denies losing consciousness he denies chest pain cough fever nausea vomiting or diarrhea. Complaint: head injury Related Data Home Medications ?Medication ?Instructions ?Recorded ?Confirmed aspirin 81 mg tablet,delayed 81 mg PO DAILY 03/14/20 07/23/23 release (Adult Low Dose Aspirin) Previous Rx's ?Medication ?Instructions ?Recorded labetalol 200 mg tablet 200 mg PO BID #180 tabs 04/13/23 hydrochlorothiazide 25 mg tablet 25 mg PO DAILY #90 tabs 07/22/23 Allergies Allergy/AdvReac Type Severity Reaction Status Date / Time corn Allergy Unknown Unknown Verified 10/04/23 11:02 ragweed pollen Allergy Unknown Unknown Verified 10/04/23 11:02 Review of Systems 2 Review of Systems: Review of systems: General: Patient denies any fever chills recent illness or falls Musculoskeletal: Denies back pain or body aches or other injuries HEENT: denies headache, runny nose, ear pain Respiratory: denies shortness of breath, cough Cardiovascular: no chest pain or palpitations : denies dysuria, frequency Abdomen: no nausea vomiting denies abdominal pain Extremities: no swelling, no pain Skin: no diaphoresis Yes all other systems are reviewed and are negative [facility] Past Medical History Medical History High blood pressure Surgical History H/O rectal polypectomy Family History Family History Father Multiple sclerosis Mother Breast cancer Social History Social History Housing: House Alcohol intake: current Alcohol intake frequency: a few times a week Patient Tobacco Use Status: Never used Tobacco Smoked in Last 30 Days: No e-Cigarette/Vaping Use: Never Used Second Hand Smoke Exposure: No Use of substances other than those prescribed or required for medical reasons: Yes Substance Use Type: Marijuana Advance Directives: No Advance Directives Information Provided: No Do you have a plan to hurt others: No Plan service: No Current occupational status: unemployed Cognitive needs: No Hearing needs: No Vision needs: Yes (Glasses) Physical Exam 2 Vital Signs: Vital Signs: Last Vital Signs Temp 98.5 F 10/04/23 12:27 Pulse 78 10/04/23 12:27 Resp 14 10/04/23 12:27 BP 140/92 H 10/04/23 12:27 Pulse Ox 97 10/04/23 12:27 O2 Del Method Room Air 10/04/23 12:27 BMI result Body Mass Index 22.8 General: Well-appearing well-nourished in no signs of distress HEENT: Normocephalic no hemotympanum no septal hematoma patient does have 2 small abrasions to the posterior portion of the scalp Neck: No signs of JVD, no masses no tenderness or lymphadenopathy Cardiovascular: Regular rate and rhythm Respiratory: Clear to auscultation bilaterally Abdomen: Soft nontender no masses Extremities: Normal pedal pulses no signs of edema Skin: Dry warm no rashes Back: No tenderness full ROM Course Course Course Narrative: CT of the head was performed and negative patient was updated with his tetanus his labs are all unremarkable patient looks well EKG was done he denies syncope I think the patient safe to go home I will discharge home with close PCP follow- up Medications Administered Discontinued Medications Generic Name Dose Route Start Last Admin Trade Name Freq PRN Reason Stop Dose Admin Diphtheria/Tetanus/Acell Pertussis 0.5 ml 10/04/23 11:01 10/04/23 11:30 Diphth,Pertus(Acell),Tet Adult 0.5 Ml Syringe IM 10/04/23 11:02 0.5 ml .ONCE ONE Administration Medical Decision Making Medical Decision Making MDM Narrative: I will check labs and an EKG the patient for a CT scan Differential Diagnosis Differential Diagnoses: The differential diagnosis associated with the presentation includes Head injury scalp hematoma abrasion intracranial injury Lab Data [facility] Lab Attestation statement: I reviewed the patient's lab results. 10/04/23 11:57 10/04/23 11:32 Labs: Lab Results 05/10/24 05/10/24 Range/Units 11:57 12:15 RBC 4.39 L (4.60-5.80) X10*6/uL Hgb 14.1 (14.0-18.0) g/dl Hct 41.5 L (42.0-52.0) % MCV 94.5 (80.0-98.0) fL MCH 32.1 (27.0-33.0) pg MCHC 34.0 (31.0-36.0) g/dl RDW 15.2 (11.0-16.0) % Plt Count 128 L (160-400) X10*3/uL MPV 10.2 (9.4-12.4) fL Immature Gran % (Auto) Cancelled Neut % (Auto) Cancelled Lymph % (Auto) Cancelled [place] % (Auto) Cancelled Eos % (Auto) Cancelled Baso % (Auto) Cancelled Lymph # (Auto) Cancelled [place] # (Auto) Cancelled Eos # (Auto) Cancelled Baso # (Auto) Cancelled Abs Immat Gran (auto) Cancelled Absolute Neuts (auto) Cancelled Absolute Nucleated RBC 0.000 (0.0-0.012) X10*3/uL Nucleated RBC % (auto) 0.0 (0.0-0.2) /100WBC Hold Purple Top SEE NOTE Independent Interpretation I performed an independent interpretation of an: CT Scan Radiology Impression Discussion of test interpretation with radiology: I have reviewed the radiologist's reading. Discharge Plan Discharge Clinical Impression: Fall, Head injury Patient Disposition: Home, Self-Care Instructions: Head Injury (ED), Fall Prevention (ED) Additional Instructions: You were seen today for a head injury. You had labs and a CT done with was all unremarkable. Please call to follow up with your doctor. Prescriptions: No Action labetalol 200 mg tablet 200 mg PO BID Qty: 180 8RF hydrochlorothiazide 25 mg tablet 25 mg PO DAILY Qty: 90 8RF aspirin [Adult Low Dose Aspirin] 81 mg tablet,delayed release (DR/EC) 81 mg PO DAILY Print Language: Tamazight
--- NOTE | 2023-10-04 11:23 | PC.NURSE ---
patient a&ox4, pt went to CT scan after EKG performed, labs to be drawn, cardiac tech to be applied upon his return, will medicated per order, pt had no c/o pain or discomfort, will continue to monitor
[2023-10-04] MEDS: Diphth,Pertus(ACell),Tet Adult 0.5 ML SYRINGE IM (11:30)
[2023-10-04 12:09] LABS: Hematocrit 41.5 % (42.0-52.0); Hemoglobin 14.1 g/dl (14.0-18.0); Mean Corpuscular Hemoglobin 32.1 pg (27.0-33.0); Mean Corpuscular Volume 94.5 fL (80.0-98.0); Mean Platelet Volume 10.2 fL (9.4-12.4); Platelet Count 128 X10*3/uL (160-400); Red Blood Count 4.39 X10*6/uL (4.60-5.80); Red Cell Distribution Width 15.2 % (11.0-16.0)
[2023-10-04 12:10] LABS: WBC ABN SCTR FOR CBC 1
--- OUTSIDE RECORDS SUMMARY | 2023-10-04 12:11 | XMS_ITS | Patient Health Record ---
Author Organization Fausto Felder III, MD Address [address] [place] [address] Care Team Providers Care Quill Stripper Name Role Phone Chauncey Gunter MD Primary Care Provider Fausto Acosta Unavailable [phone] ALLERGIES Allergen (clinical drug ingredient) Drug/Non Drug Allergy documented on EMR Reaction Allergy Type Onset Date Status Ragweed Unknown Allergy Active Dewey Dewey Unknown Allergy Active RESULTS Component Value Reference Range Notes Complete Blood Count Auto Di ff Reviewed date:06/01/2023 08:44:45 PM Interpretation: Performing Lab:[facility], [address] [place] [id number] Notes/Report: White Blood Count 8.2 4.8-10.8 X10*3/uL Red Blood Count 4.23 4.60-5.80 X10*6/uL Hemoglobin 13.7 14.0-18.0 g/dl Hematocrit 40.0 42.0-52.0 % Mean Corpuscular Volume 94.6 80.0-98.0 fL Mean Corpuscular Hemoglobin 32.4 27.0-33.0 pg Mean Corpuscular HGB Conc 34.3 31.0-36.0 g/dl Red Cell Distribution Width 13.9 11.0-16.0 % Platelet Count 167 160-400 X10*3/uL Mean Platelet Volume 10.0 9.4-12.4 fL Neutrophils Percent Auto 68.2 45-73 % Imm Gran Pct Auto 0.4 0.0-0.4 % Lymphocytes Percent Auto 24.7 20-40 % Monocytes Percent Auto 5.7 2-11 % Eosinophils Percent Auto 0.5 0-4 % Basophils Percent Auto 0.5 0-2 % NRBC Pct Auto 0.0 0.0-0.2 /100WBC Neutrophils Absolute Auto 5.6 2.0-8.3 x10*3/u L Imm Gran Abs Auto 0.03 0.00-0.03 X10*3/uL Lymphocytes Absolute Auto 2.0 1.2-4.9 X10*3/u L Monocytes Absolute Auto 0.5 0.1-1.2 X10*3/uL Eosinophils Absolute Auto 0.0 0.0-0.4 X10*3/u L Basophils Absolute Auto 0.0 0.0-0.2 X10*3/uL NRBC Abs Auto 0.000 0.0-0.012 X10*3/uL Comprehensive Met. Panel Reviewed date:06/01/2023 08:44:45 PM Interpretation: Performing Lab:[facility], [address] [place] [id number] Notes/Report: Sodium 139 135-145 mmol/L Potassium 4.2 3.3-5.1 mmol/L Chloride 102 96-108 mmol/L Carbon Dioxide 28 22-29 mmol/L Anion Gap 13 12-20 Blood Urea Nitrogen 17 9-16 mg/dL Creatinine 1.59 0.5-1.4 mg/dL Estimated Glomerular Filt Rate 44 NOTE: For -[place] individuals, multiply the result by 1.210. Chronic Kidney Disease: Estimated GFR < 60 mL/min/1.73m2 Severe Kidney Disease: Estimated GFR < 15 mL/min/1.73m2 Glucose Random 121 60-115 mg/dL Calcium 9.7 8.4-10.2 mg/dL Bilirubin Total 0.9 0.0-1.0 mg/dL Aspartate Amino Transferase 20 5-37 U/L Alanine Aminotransferase 12 0-40 U/L Total Protein 7.3 6.5-8.0 g/dL Albumin Level 4.4 3.5-5.0 g/dL Alkaline Phosphatase 43 39-117 U/L REASON FOR REFERRAL No Information MEDICATIONS Medication SIG (Take, Route, Frequency, Duration) Notes Start Date End Date Status hydroCHLOROthiazide 25 MG TAKE 1 TABLET BY MOUTH EVERY DAY Oral Active Labetalol HCl 200 MG 1 tablet Orally Twi ce a day Active Adult Aspirin EC Low Strengt h 81 MG 1 tablet Orally Once a day Active SOCIAL HISTORY Tobacco Use: Social History Observation Description Date Details (start date - stop date) Never Smoker NA - NA Sex Assigned At : Social History Observation Description Sex Assigned At Unknown Tobacco Use/Smoking Question Answer Notes Patient is a nonsmoker Additional Findings: Tobacco Non-User Aggressive non-smoker Alcohol Screen Question Answer Notes Did you have a drink contain ing alcohol in the past year? Yes How often did you have a dri nk containing alcohol in the past year? 2 to 4 times a month (2 points) How many drinks did you have on a typical day when you were drinking in the past year? 1 or 2 drinks (0 point) How often did you have 6 or more drinks on one occasion in the past year? Never (0 point) Points 2 Interpretation Negative PROBLEMS Problem Type ICD Code Onset Dates Problem Status W/U Status Risk SNOMED Code Notes Problem Overweight (E66.3) Active confirmed 030940291 His weight is now in the normal range and this problem has resolved. Problem Hypertension (I10) Active confirmed [id number] His blood pres sure is well controlled today At 130/84 andno change in his regimen was indicated. Problem Colonic polyp (K63.5) Active confirmed [id number] His polyp was a tubular adenoma and routine five-year colonoscopies are indicated. He and I discussed this and he is aware of the necessity for this and will address this issue with his pipe stress engineer and primary care physician. Problem Stage IIA Hodgkin's disease (C81.90) Active confirmed [id number] There is no si gn of recurrent Hodgkin's disease today. No sign of a new primary lymphoma or other malignancy today. VITAL SIGNS Heart Rate 57 /min 05/31/2023 Temperature 97.7 degrees Fahrenheit 05/31/2023 Blood pressure diastolic 70 mm Hg 05/31/2023 Height 71 in 05/31/2023 Blood pressure systolic 120 mm Hg 05/31/2023 Weight 156 lbs 05/31/2023 BMI 21.76 kg/m2 05/31/2023 Encounters Encounter Location Date Provider Diagnosis Fausto Felder III, MD [address] [place] [address] [place] [phone] 03/25/2023 Fausto Felder Stage IIA Hodgkin's disease C81.90 ; Overweight E66.3 ; Colonic polyp K63.5 and Hypertension I10 Fausto Felder III, MD [address] [place] [address] [place] [id number] 05/31/2023 Fausto Felder Stage IIA Hodgkin's disease C81.90 ; Hypertension I10 ; Colonic polyp K63.5 and Overweight E66.3 Fausto Felder III, MD [address] [place] [address] [address] [place] [phone] 05/16/2023 Fausto Felder ASSESSMENTS Encounter Date Diagnosis Assessment Notes Treatment Notes Treatment Clinical Notes 03/25/2023 Overweight (ICD-10 - E66.3) His weight is now in the normal range and this problem has resolved. 03/25/2023 Stage IIA Hodgkin's disease (ICD-10 - C81.90) There is no sign of recurrent disease. However new primary lymphoma or other malignancy. He seems healthy and well. 05/31/2023 Hypertension (ICD-10 - I10) His blood pressure is well controlled today At 130/84 andno change in his regimen was indicated. 05/31/2023 Stage IIA Hodgkin's disease (ICD-10 - C81.90) There is no sign of recurrent Hodgkin's disease today. No sign of a new primary lymphoma or other malignancy today. 03/25/2023 Colonic polyp (ICD-10 - K63.5) His polyp was a tubular adenoma and routine five-year colonoscopies are indicated. He and I discussed this and he is aware of the necessity for this and will address this issue with his pipe stress engineer and primary care physician. 05/31/2023 Colonic polyp (ICD-10 - K63.5) His polyp was a tubular adenoma and routine five-year colonoscopies are indicated. He and I discussed this and he is aware of the necessity for this and will address this issue with his pipe stress engineer and primary care physician. 03/25/2023 Hypertension (ICD-10 - I10) His blood pressure is well controlled today At 130/84 andno change in his regimen was indicated. 05/31/2023 Overweight (ICD-10 - E66.3) His weight is now in the normal range and this problem has resolved. PLAN OF TREATMENT Pending Test Test Name Order Date PROFILE, RANDOM (COMPREHENSIVE METABOLIC ) 02/19/2017 PROFILE, RANDOM (COMPREHENSIVE METABOLIC ) 03/25/2023 LDH 02/19/2017 CBC w DIFF 02/19/2017 SED RATE (ESR) 02/19/2017 CBC WITH AUTO DIFF 03/25/2023 Next Appt Details Provider Name:Fausto Felder, 06/01/2024 10:00:00 AM, [address] [place] [address] , [address], [place], [phone], Insurance Providers Payer Name Payer Address Payer Phone Subscriber Number Group Number Insured Name Patient Relationship to Insured Coverage Start Date Coverage End Date [employer] Medicare [address] [place] [address] [id number] Louis Waters Self - patient is the insured MEDICARE [facility] [address] [place] [address] [id number] Louis Waters Self - patient is the insured MEDICAID [address] [place] [id number] Louis Waters Self - patient is the insured MEDICAL (GENERAL) HISTORY Medical History History ICD Code hypertension stage II Hodgkin's disease a ge 41 treated with radiation and chemotherapy 1996 2006 tubular adenoma on colonoscopy, las t 2016 hyperplastic and adenomatous colonic errol yps Surgical History Surgery Date(Month/Year) Cataract surgery 12/2021 colonoscopy, one hyperplastic polyp melinda 2013 colonoscopy,1 tubular adenoma 2007 dental extraction mediastinal node biopsy 1995
[2023-10-04 12:27] VITALS: BP 140/92; PULSE 78; RESP 14; TEMP 36.9; O2SAT 97
[2023-10-04 12:30] LABS: Band Neutrophils Percent 0 % (3-5); Basophils Percent Manual 1 % (0-2); Eosinophils Percent Manual 1 % (0-4); Lymphocytes Percent Manual 22 % (20-40); Monocytes Percent Manual 7 % (2-11); Neutrophils Percent Manual 69 % (45-73)
[2023-10-04 12:37] LABS: Platelet Estimate SLIGHTLY DECREASED (NORMAL); Platelet Morphology Comment NORMAL; RBC Morphology NORMAL
[2023-10-04 12:38] LABS: Basophils Abs Manual 0.1 X10*3/uL (0.0-0.2); Eosinophils Absolute Manual 0.1 X10*3/uL (0.0-0.4); Lymphocytes Absolute Manual 1.6 X10*3/uL (1.2-4.9); Monocytes Absolute Manual 0.5 X10*3/uL (0.1-1.2); White Blood Count 7.3 X10*3/uL (4.8-10.8)
[2023-10-04 12:39] LABS: Anion Gap 13 (12-20)
[2023-10-04 12:42] LABS: Blood Urea Nitrogen 13 mg/dL (9-16); Calcium 9.5 mg/dL (8.4-10.2); Carbon Dioxide 28 mmol/L (22-29); Chloride 105 mmol/L (96-108); Estimated Glomerular Filt Rate 52; Glucose Random 113 mg/dL (60-115); Potassium 4.4 mmol/L (3.3-5.1); Sodium 142 mmol/L (135-145)
[2023-10-04 13:44] VITALS: BP 162/92; PULSE 85; RESP 18; TEMP 36.7; O2SAT 96
== END 2023-10-04 13:45 | disposition home or self-care (01) ==
PROVIDERS: Emergency Provider Student in an Organized Health Care Education/Training Program; PCP Internal Medicine
DX: S09.90XA Unspecified injury of head, initial encounter (principal); S01.01XA Laceration without foreign body of scalp, initial encounter; R94.31 Abnormal electrocardiogram [ECG] [EKG]; R51.9 Headache, unspecified; W01.0XXA Fall on same level from slipping, tripping and stumbling without subsequent striking against object, initial encounter; Y93.9 Activity, unspecified; Y92.9 Unspecified place or not applicable; Y99.8 Other external cause status; Z79.899 Other long term (current) drug therapy; Z23 Encounter for immunization
CPT/HCPCS: 36415; 70450; 80048; 85007; 85025; 85027; 90471; 90715; 93005; 99284

== ENCOUNTER → 2023-10-04 11:01 | Outpatient (BNV) | payer MEDICARE, MEDICAID, SELFPAY | PROVIDERS: Emergency Provider Student in an Organized Health Care Education/Training Program; PCP Internal Medicine; Visit Provider Internal Medicine Cardiovascular Disease | DX: R94.01 Abnormal electroencephalogram [EEG] (principal) | CPT/HCPCS: 93010 ==

== ENCOUNTER 2023-10-18 13:30 | Outpatient (AMB) | payer MEDICARE, MEDICAID, SELFPAY ==
[2023-10-18 13:33] VITALS: BP 142/84; PULSE 90; O2SAT 98; BMI 22.8
--- NOTE | 2023-10-18 13:33 | A.OFFPC_ITS ---
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: Not Required per policy Accompanied by: Self / Same As Patient Allergies corn Allergy (Unknown, Verified 10/18/23 13:33) Unknown ragweed pollen Allergy (Unknown, Verified 10/18/23 13:33) Unknown Tobacco use date assessed: 07/23/23 Fall risk assessment: 1 Fall in past year Last assessed Fall Risk: 10/18/23 Dental Screening Dental Screen Date: 07/23/23 HPI [facility] [place] Fall HPI Details found on floor unconcious by girlfriend; difficult to arouse but when she did he was confused and not acting himself for an hour; in er w/u neg including mri head; occured a week ago and feels well now [facility] Medical History High blood pressure Surgical History H/O rectal polypectomy Family History Father Multiple sclerosis Mother Breast cancer Social History Housing: House Alcohol intake: current Alcohol intake frequency: a few times a week Patient Tobacco Use Status: Never used Tobacco e-Cigarette/Vaping Use: Never Used Second Hand Smoke Exposure: No Substance Use Type: Marijuana service: No Current occupational status: unemployed Cognitive needs: No Hearing needs: No Vision needs: Yes (Glasses) Questionnaire Thrive Questionnaire Date Thrive assessed: 07/23/23 JOYCE-7 AMB Questionnaire JOYCE-7 Date JOYCE - 7 assessed: 10/05/22 Source: Developed by Drs. Fausto Bailey, Stefania Tiwari, Donald Ross and colleagues, with an educational durga from [employer]. Review of Systems Const Denies chills, Denies headache(s) and Denies weight loss ENT Denies headache(s) Card Denies chest pain, Denies syncope, Denies irregular heart rhythm and Denies dyspnea Resp Denies chest congestion, Denies cough and Denies dyspnea GI Denies abdominal pain, Denies change in stool character, Denies nausea and Denies vomiting Musc Denies deformity and Denies joint swelling Neuro Denies syncope and Denies headache(s) Physical exam (Primary Care) Vital Signs: Last Vital Signs Pulse 90 10/18/23 13:33 BP 142/84 H 10/18/23 13:33 Pulse Ox 98 10/18/23 13:33 Oxygen Delivery Method Room Air 10/18/23 13:33 BMI result Body Mass Index 22.8 Tobacco/Smoking Status: Tobacco use Status Tobacco use date assessed 07/23/23 10/18/23 13:34 Patient Tobacco Use Status Never used Tobacco 10/18/23 13:34 e-Cigarette/Vaping Use Never Used 10/18/23 13:34 Thrive Assessment: Date of Thrive Assessment Date Thrive assessed 07/23/23 10/18/23 13:34 Const General: cooperative, comfortable, no acute distress and alert Neck Neck: Yes no lymphadenopathy Thyroid: Thyroid normal Resp Effort & Inspection: normal respiratory effort Auscultation: clear to auscultation bilaterally Percussion: percussion normal Cardio Jugular venous distension: no JVD Palpation: normal PMI Rate: regular rate Rhythm: regular rhythm Heart sounds: S1 normal heart sound present and S2 normal heart sound present GI Inspection: Yes normal to inspection Palpation (GI): No hepatosplenomegaly present Skin General skin exam: no rashes or lesions noted Extrem General: Yes no clubbing, cyanosis or edema Assessment and Plan Assessment & Plan (1) Loss of consciousness: Code(s): R40.20 - Unspecified coma Plan: possible Sz with post-ictal confusion; refer to neuro Orders: Referrals Neurology Referral R40.20 - Unspecified coma Coding Level of Care Code Est Pt Level 3 (69502) Diagnoses Loss of consciousness R40.20
== END 2023-10-18 13:52 | disposition home or self-care (01) ==
PROVIDERS: PCP Internal Medicine; Visit Provider Internal Medicine
DX: R40.20 Unspecified coma (principal)
CPT/HCPCS: 99213

== ENCOUNTER 2023-11-22 07:18 | Day surgery (SDC) | payer MEDICARE, MEDICAID, SELFPAY ==
[2023-11-20 09:25] VITALS: BMI 23.0
--- NOTE | 2023-11-21 09:40 | P.CONAN_ITS ---
HPI - Anesthesia Eval Consult details Narrative: 68yo M for Colonoscopy Syncopal [place]2023[place] [facility] [place]. Eval by PCP post ED discharge, pt feeling well with no further episodes. Referred to neuro with visit 11/21/23. Visit note requested. PMFSH Active Problems Active Problems: All Active Problems Loss of consciousness (Acute) Gout (Acute) Physical exam (Acute) Allergic rhinitis (Acute) Preop exam for internal medicine (Acute) Hypertension (Acute) Past Medical History Medical History Tubular adenoma Hx of radiation therapy History of chemotherapy Hodgkins disease Syncope High blood pressure Family History Family History Father Multiple sclerosis Mother Breast cancer Surgical History Surgical History Hx of surgical procedure H/O colonoscopy H/O rectal polypectomy Social History Social History Housing: House Alcohol intake: current Alcohol intake frequency: a few times a week Patient Tobacco Use Status: Never used Tobacco Smoked in Last 30 Days: No e-Cigarette/Vaping Use: Never Used Second Hand Smoke Exposure: No Use of substances other than those prescribed or required for medical reasons: No Substance Use Type: Marijuana Advance Directives: No Advance Directives Information Provided: Yes service: No Current occupational status: unemployed Cognitive needs: No Hearing needs: No Vision needs: Yes (Glasses) Meds Allergies Allergy/AdvReac Type Severity Reaction Status Date / Time corn Allergy Unknown Unknown Verified 11/26/23 09:04 ragweed pollen Allergy Unknown Unknown Verified 11/26/23 09:04 Exam Height,Weight and Vital Signs: Height 5 ft 10 in Weight 72.575 kg Pertinent Lab Results Pertinent Lab Results: Laboratory Tests 10/04/23 10/04/23 11:57 12:13 WBC 7.3 Hgb 14.1 Hct 41.5 L Plt Count 128 L Sodium 142 Potassium 4.4 Chloride 105 Carbon Dioxide 28 BUN 13 Creatinine 1.37 Narrative Narrative: EKG 09/2023 Vent. Rate : 081 BPM Atrial Rate : 081 BPM P-R Int : 202 ms QRS Dur : 088 ms QT Int : 370 ms P-R-T Axes : 068 -47 001 degrees QTc Int : 429 ms Normal sinus rhythm Left anterior fascicular block Minimal voltage criteria for LVH, may be normal variant ( R in aVL ) Abnormal ECG When compared with ECG of 12-NOV-2012 07:37, Left anterior fascicular block is now Present Nonspecific T wave abnormality no longer evident in Lateral leads CT head/brain wo IV con 09/2023 IMPRESSION: 1. Interval development of cerebral atrophy and ventriculomegaly. 2. No acute intracranial hemorrhage or extra-axial fluid accumulation. 3. 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 4. Interval development of Left sphenoid sinus polypoid mucosal lesion. Assessment and Plan Assessment Anesthesia Assessment: Chart Reviewed
--- OUTSIDE RECORDS SUMMARY | 2023-11-22 07:20 | XMS_ITS | Patient Health Record ---
Author Organization Fausto Felder III, MD Address [address] [place] [address] Care Team Providers Care Application Security Engineer Name Role Phone Chauncey Gunter MD Primary Care Provider Fausto Acosta Unavailable [phone] ALLERGIES Allergen (clinical drug ingredient) Drug/Non Drug Allergy documented on EMR Reaction Allergy Type Onset Date Status Ragweed Unknown Allergy Active [place] Unknown Allergy Active RESULTS Component Value Reference Range Notes Complete Blood Count Auto Di ff Reviewed date:06/01/2023 08:44:45 PM Interpretation: Performing Lab:[facility], [address] [place] [phone] Notes/Report: White Blood Count 8.2 4.8-10.8 X10*3/uL [...] Panel Reviewed date:06/01/2023 08:44:45 PM Interpretation: Performing Lab:[facility], [address] [place] [phone] Notes/Report: Sodium 139 135-145 mmol/L Potassium 4.2 3.3-5.1 mmol/L Chloride 102 96-108 mmol/L Carbon Dioxide 28 22-29 mmol/L Anion Gap 13 12-20 Blood Urea Nitrogen 17 9-16 mg/dL Creatinine 1.59 0.5-1.4 mg/dL Estimated Glomerular Filt Rate 44 NOTE: For -Filipino individuals, multiply the result by 1.210. Chronic [...] Code Notes Problem Overweight (E66.3) Active confirmed [id number] His weight is now in the normal range and this problem has resolved. Problem Hypertension (I10) Active confirmed 23868426 His blood pres sure is well controlled today At 130/84 andno change in his regimen was indicated. Problem Colonic polyp (K63.5) Active confirmed 18087521 His polyp was a tubular adenoma and routine five-year colonoscopies are indicated. He and I discussed this and he is aware of the necessity for this and will address this issue with his dandy operator and primary care physician. Problem Stage IIA Hodgkin's disease (C81.90) Active confirmed 872482785 There is no si gn of recurrent [...] Date Provider Diagnosis Fausto Felder III, MD [address] [place] [address] [place] [phone] 03/25/2023 Fausto Felder Stage IIA Hodgkin's disease C81.90 ; Overweight E66.3 ; Colonic polyp K63.5 and Hypertension I10 Fausto Felder III, MD [address] [place] [address] [place] [phone] 05/31/2023 Fausto Felder Stage IIA Hodgkin's disease C81.90 ; Hypertension I10 ; Colonic polyp K63.5 and Overweight E66.3 Fausto Felder III, MD [address] [place] [address] [address] [place] [place] [address] 05/16/2023 Fausto Felder ASSESSMENTS Encounter Date Diagnosis [...] and will address this issue with his dandy operator and primary care physician. 05/31/2023 Colonic polyp (ICD-10 - K63.5) His polyp was a tubular adenoma and routine five-year colonoscopies are indicated. He and I discussed this and he is aware of the necessity for this and will address this issue with his dandy operator and primary care physician. 03/25/2023 Hypertension (ICD-10 [...] Details Provider Name:Fausto Felder, 06/01/2024 10:00:00 AM, [address] [place] [address] , [address], [place], [address], Insurance Providers Payer Name Payer Address Payer Phone Subscriber Number Group Number Insured Name Patient Relationship to Insured Coverage Start Date Coverage End Date [employer] Medicare [address] [place] [address] [id number] Louis Waters Self - patient is the insured MEDICARE [facility] [address] [facility] [place] [address] [id number] Louis Waters Self - patient is the insured MEDICAID [address] [place] [id number] Louis Waters Self - patient is the [...]
[2023-11-22 07:28] VITALS: BMI 21.5
--- NOTE | 2023-11-22 07:48 | HO.ANESPROP2 ---
[facility] Active Problems Active Problems: All Active Problems Loss of consciousness (Acute) Gout (Acute) Physical exam (Acute) Allergic rhinitis (Acute) Preop exam for internal medicine (Acute) Hypertension (Acute) Past Medical History Medical History Tubular adenoma Hx of radiation therapy History of chemotherapy Hodgkins disease Syncope High blood pressure Functional capacity: independent ambulation Family History Family History Father Multiple sclerosis Mother Breast cancer Family history of problems with anesthesia: No Surgical History Surgical History Hx of surgical procedure H/O colonoscopy H/O rectal polypectomy History of Problems with Anesthesia: No Social History Social History Housing: House Alcohol intake: current Alcohol intake frequency: a few times a week Patient Tobacco Use Status: Never used Tobacco e-Cigarette/Vaping Use: Never Used Second Hand Smoke Exposure: No Use of substances other than those prescribed or required for medical reasons: Yes Substance Use Type: Marijuana Substance Use Frequency: Occasionally Are you DNR?: No Advance Directives: No Advance Directives Information Provided: Yes service: No Current occupational status: unemployed Cognitive needs: No Hearing needs: No Vision needs: Yes (Glasses) Meds Allergies Allergy/AdvReac Type Severity Reaction Status Date / Time corn Allergy Unknown Unknown Verified 10/18/23 13:33 ragweed pollen Allergy Unknown Unknown Verified 10/18/23 13:33 Active Medications: Current Medications Lactated Ringer's (Lr) 1,000 mls @ 100 mls/hr IVCONT .Q10H JELANI Exam Height,Weight and Vital Signs: Height 5 ft 10 in Weight 68.039 kg Airway Mallampati Class: II TM Dist: >3cm Neck ROM: Full Heart: RRR Lungs: CTA Assessment and Plan Assessment Anesthesia Assessment: Anesthesia Plan Discussed Final Anesthetic Review Family History of Problems with Anesthesia: No History of Problems with Anesthesia: No NPO: Yes ASA Class: II Final Preanesthetic Review: Meds/Allgs Chart Reviewed, Consent Obtained/Reviewed and Anes Risks/Benef Reviewed Patient Risk: Low Procedure Risk: Low Anesthetic Plan Anesthetic Plan: MAC: Disposition: Standard PACU
[2023-11-22 08:00] VITALS: BP 118/77; PULSE 78; RESP 16; TEMP 36.1; O2SAT 100
[2023-11-22] MEDS: Lactated Ringers 1,000 ML 100 ML IVCONT (08:01)
--- NOTE | 2023-11-22 08:16 | MHC.SHP ---
Pre-Procedural Eval Section A - 24 Hr Update-Section A only Date of Service: 11/22/23 Section B - Complete if H&P > 30 days Chief Complaint: screening Details of Present Illness: see H&P no changes Relevant Family History (Specify if Yes): No Relevant Social History: None Present Medications: see Short Stay Collaborative assessment Medical History: No relevant PMH History of Previous Operations: No relevant previous surgery Allergies: Allergies Allergy/AdvReac Type Severity Reaction Status Date / Time corn Allergy Unknown Unknown Verified 10/18/23 13:33 ragweed pollen Allergy Unknown Unknown Verified 10/18/23 13:33 Review of Systems Sugical H&P ROS: Negative: Constitution, Cardiovascular, Respiratory, Neurological, Psychiatric, Hem-Onc, Allergic/Immunologic, Gastrointestinal, Genitourinary, Musculoskeletal, Integumentary, Endocrine and Eyes/Ears/Nose/Throat Exam Surgical H&P Exam: Normal: HEENT, Normal: Heart, Normal: Lungs, Normal: Extremities, Normal: Abdomen, Normal: Skin and Normal: Neurological Plan Diagnosis/Plan: Unchanged I have reviewed the history and physical and performed a pertinent physical examination on my patient. No changes have occurred unless specified. Time Spent With Patient Time: Total time managing care of this patient today ____ minutes.
[2023-11-22 08:49] VITALS: BP 89/50; PULSE 67; RESP 16; TEMP 36.2; O2SAT 99
[2023-11-22 08:54] VITALS: BP 95/59; PULSE 66; RESP 16; O2SAT 98
[2023-11-22 09:04] VITALS: BP 101/68; PULSE 72; RESP 16; O2SAT 97
--- NOTE | 2023-11-22 09:11 | HO.POSTANES ---
Post Anesthesia Evaluation Post Anesthesia Evaluation Date of Service: 11/22/23 Vital Signs: Vital Signs Temp Pulse Resp BP Pulse Ox O2 Del Method 11/22/23 09:04 72 16 101/68 97 Room Air 11/22/23 08:54 66 16 95/59 L 98 Room Air 11/22/23 08:49 97.2 F 67 16 89/50 L 99 Room Air 11/22/23 08:00 97.0 F 78 16 118/77 100 Room Air Anesthesia: Monitored Mental Status: Awake Pain Control: Satisfactory Nausea/Vomiting: None Hydration: Adequate Anesthesia-Related Issues: No Anes. Related Issues
[2023-11-22 09:19] VITALS: BP 114/74; PULSE 74; RESP 16; O2SAT 97
--- NOTE | 2023-11-22 09:21 | OP_ITS ---
DATE OF SERVICE: 11/22/2023 SURGEON: Bishnu May MD INDICATIONS: Colon cancer screening. PREOPERATIVE DIAGNOSIS: POSTOPERATIVE DIAGNOSIS: PROCEDURE PERFORMED: Colonoscopy to the terminal ileum with snare polypectomy and biopsy. ESTIMATED BLOOD LOSS: COMPLICATIONS: ANESTHESIA: Monitored anesthesia care. ASSISTANTS: SPECIMENS: DESCRIPTION OF PROCEDURE: A history and physical was performed. The risks and benefits of the procedure were explained to the patient, and informed consent was obtained. The patient was placed in the left lateral decubitus position. A digital rectal exam was performed and was found to be normal. The Olympus pediatric video colonoscope was introduced into the rectum and advanced to the cecum. The cecum was identified by transillumination, palpation, and identification of ileocecal valve. Examination was performed. The scope was removed. He tolerated the procedure well and was returned to the recovery area in stable condition. FINDINGS: The terminal ileum was briefly examined and appeared normal. The visualized colonic mucosa was normal. The quality of the prep was good. A single polyp measuring approximately 6 to 7 mm was identified in the cecum. This was removed with a hot snare and biopsy forceps. No other polyps were identified. Retroflexed examination showed small to moderate-sized internal hemorrhoids. IMPRESSION: Colon polyp. RECOMMENDATION: Follow up the biopsy results. MD ASHUTOSH Jordan/ALBAL / [id number]
[2023-11-22 09:34] VITALS: BP 127/88; PULSE 66; RESP 16; TEMP 36.2; O2SAT 97
== END 2023-11-22 10:15 | disposition home or self-care (01) ==
PROVIDERS: PCP Internal Medicine; Visit Provider Internal Medicine Gastroenterology
PROC: 0DJD8ZZ Inspection of Lower Intestinal Tract, Via Natural or Artificial Opening Endoscopic (ICD-10-PCS; CPT 45378; principal; 2023-11-22 08:30)
DX: Z12.11 Encounter for screening for malignant neoplasm of colon (principal); Z86.010 Personal history of colon polyps; D12.0 Benign neoplasm of cecum; K64.8 Other hemorrhoids; I10 Essential (primary) hypertension; C81.90 Hodgkin lymphoma, unspecified, unspecified site; Z92.21 Personal history of antineoplastic chemotherapy; Z92.3 Personal history of irradiation; Z79.82 Long term (current) use of aspirin; Z79.899 Other long term (current) drug therapy; Z98.890 Other specified postprocedural states
CPT/HCPCS: 45385; 45380; 88305; J2704

== ENCOUNTER 2023-11-26 09:00 | Emergency (ER) | payer MEDICARE, SELFPAY ==
--- NOTE | 2023-11-26 | ECG_ITS ---
Test Reason : SEIZURE Blood Pressure : / mmHG Vent. Rate : 080 BPM Atrial Rate : 080 BPM P-R Int : 202 ms QRS Dur : 092 ms QT Int : 382 ms P-R-T Axes : 077 -50 040 degrees QTc Int : 440 ms Normal sinus rhythm Left anterior fascicular block Minimal voltage criteria for LVH, may be normal variant ( R in aVL ) Abnormal ECG When compared with ECG of 04-OCT-2023 11:05, No significant change was found Referred By: Maye Albrecht Electronically Signed By:DANIEL MCPHERSON
[2023-11-26 09:02] VITALS: BP 122/71; PULSE 97; RESP 16; TEMP 481; TEMP 897.8; O2SAT 98; BMI 22.4
--- NOTE | 2023-11-26 09:22 | PC.NURSE ---
patient arrives ambulatory with steady gait through external triage, patient states recently he has been experiencing what he thinks are seizurues, patient recieved MRI a few weeks ago and is scheduled for another one in a few weeks but sees a neurologist who suspects possible seizure activity. patient presents today after an episode yesterday when the patient states he had an episode where he fell out of bed and woke up to his girlfriend and her daughter trying to wake him up. patient states they told him he was combative when he woke up but he has no recollection of the actual event. patient arrives alert and oriented x4, no neuro deficits at this time, denies hitting his head during yesterdays episode. states he has been following up with his neurologist, but he also hasnt taken his BP medications in 2 days because i think that might be causing them , educated patient on the importance of taking his BP medications and to not stop them unless the MD states to. patient BP currently 130/80. patient equal strength in all 4 extremities, NIHSS negative at this time, patient placed on sorting and folding supervisor, RN at bedside completing EKG, respirations even and unlabored. placed on sorting and folding supervisor, regular rate and rhythm noted. no seizure pads in department but side rails wrapped with blankets for safety precautions. awaiting MD reddy at this time
--- NOTE | 2023-11-26 09:24 | ED.GENADULT ---
HPI - General Adult General Chief complaint: General Medical Stated complaint: Syncope yesterday Time Seen by Provider: 11/26/23 09:15 Source: patient and old records reviewed Mode of arrival: ambulatory Limitations: no limitations History of Present Illness ED Provider: ANA CRISTINA FINNEY narrative: 68 yo male with PMH of HTN, CVA no deficits, was sen back in September with negative CT head for fall but at that time reported he was found on floor by GF and then when he woke up was agitated he presents again today with c/o fell out of bed unresponsive for 15 minutes and was agitated with family. Every time he is confused and agitated with family then has to apologize. He does not drink alcohol only occasionally. Never had seizures as a child. No street drugs other than THC. He saw neurology is planned for another appointment 12/11 due for MRI. He has no prodrome MD complaint: seizure Onset (ago): month(s) (1) Location: head Radiation: non-radiation Severity: moderate Relieving factors: none Exacerbating factors: none Associated symptoms: denies other symptoms Treatments prior to arrival: none Related Data Previous Rx's ?Medication ?Instructions ?Recorded labetalol 200 mg tablet 200 mg PO BID #180 tabs 04/13/23 hydrochlorothiazide 25 mg tablet 25 mg PO DAILY #90 tabs 07/22/23 levetiracetam 500 mg tablet 500 mg PO BID #60 tabs 11/26/23 (Keppra) Allergies Allergy/AdvReac Type Severity Reaction Status Date / Time corn Allergy Unknown Unknown Verified 11/26/23 09:04 ragweed pollen Allergy Unknown Unknown Verified 11/26/23 09:04 Review of Systems Review of Systems: Constitutional : No Fever, No Chills, No Fatigue ENT/Mouth : No sore throat, No Rhinorrhea Eyes: No Eye Pain, No Swelling, No Redness Cardiovascular : No Chest Pain, No SOB, No Dyspnea on Exertion Respiratory : No Cough, No Sputum Gastrointestinal : No Nausea, No Vomiting, No Diarrhea, No abdominal Pain Genitourinary : No Dysuria, No Urinary Frequency, No Hematuria, Musculoskeletal : No joint pain, No Myalgias, No Joint Swelling Skin : No Skin Lesions, No rash Neuro : No Weakness, No Numbness, No Dizziness, no Headache, pos LOC Psych : No Anxiety/Panic, No Depression All other systems reviewed and are negative PMFSH Past Medical History Attestation statement: The following information was validated with the patient. Source: old records reviewed Medical History Tubular adenoma Hx of radiation therapy History of chemotherapy Hodgkins disease Syncope High blood pressure Surgical History Hx of surgical procedure H/O colonoscopy H/O rectal polypectomy Family History Family History Father Multiple sclerosis Mother Breast cancer Social History Social History Housing: House Alcohol intake: current Alcohol intake frequency: a few times a week Patient Tobacco Use Status: Never used Tobacco Smoked in Last 30 Days: No e-Cigarette/Vaping Use: Never Used Second Hand Smoke Exposure: No Use of substances other than those prescribed or required for medical reasons: No Substance Use Type: Marijuana Advance Directives: No Advance Directives Information Provided: Yes service: No Current occupational status: unemployed Cognitive needs: No Hearing needs: No Vision needs: Yes (Glasses) Physical Exam ED Vital Signs: Vital Signs - 24 hr 11/26/23 09:02 11/26/23 09:33 Temperature 897.8 F H Pulse Rate 97 82 Respiratory Rate 16 16 Blood Pressure 122/71 130/80 Pulse Oximetry 98 98 Oxygen Delivery Method Room Air BMI result Body Mass Index 22.4 Appearance: Alert. Oriented X3. No acute distress. Eyes: Pupils equal, round and reactive to light. ENT: Pharynx normal. atraumatic Neck: Normal inspection. Neck supple. CVS: Normal heart rate and rhythm. Pulses normal. Respiratory: No respiratory distress. Breath sounds normal. Abdomen: Soft and nontender. Skin: Skin warm and dry. Normal skin color. Normal skin turgor. Extremities: No lower extremity edema. No calf ttp Neuro: Oriented X 3. No motor deficit. No sensory deficit. Medications Administered Discontinued Medications Generic Name Dose Route Start Last Admin Trade Name Freq PRN Reason Stop Dose Admin Levetiracetam 500 mg 11/26/23 09:52 11/26/23 09:57 Levetiracetam 500 Mg Tablet PO 11/26/23 09:53 500 mg ONCE ONE Administration Medical Decision Making Medical Decision Making MDM Narrative: 68 yo male with PMH of HTN, CVA no deficits no prior seizures here with c/o 2 episodes so far where he has no prodrome then wakes up and family notes he is confused after they find him it is never a witnessed fall then is postictal and agitated. At this time already had CT head no mass noted, he has no deficits, has neurology follow up but he had another episode in bed. His symptoms are concerning for seizure will obtain labs and start on keppra Differential Diagnosis Differential Diagnoses: The differential diagnosis associated with the presentation includes seizure, lyte abnormality, syncope Admission/Observation Consideration of admission/observation: Escalation of care including admission/observation considered labs at baseline stable for DC Lab Data [facility] Lab Attestation statement: I reviewed the patient's lab results. 11/26/23 09:36 11/26/23 10:01 Labs: Lab Results 11/26/23 11/26/23 Range/Units 09:36 10:01 WBC 6.0 (4.8-10.8) X10*3/uL RBC 4.32 L (4.60-5.80) X10*6/uL Hgb 13.7 L (14.0-18.0) g/dl Hct 40.3 L (42.0-52.0) % MCV 93.3 (80.0-98.0) fL MCH 31.7 (27.0-33.0) pg MCHC 34.0 (31.0-36.0) g/dl RDW 14.9 (11.0-16.0) % Plt Count 158 L (160-400) X10*3/uL MPV 9.4 (9.4-12.4) fL Immature Gran % (Auto) 0.3 (0.0-0.4) % Neut % (Auto) 57.0 (45-73) % Lymph % (Auto) 35.2 (20-40) % Mercer % (Auto) 6.5 (2-11) % Eos % (Auto) 0.7 (0-4) % Baso % (Auto) 0.3 (0-2) % Lymph # (Auto) 2.1 (1.2-4.9) X10*3/uL Mercer # (Auto) 0.4 (0.1-1.2) X10*3/uL Eos # (Auto) 0.0 (0.0-0.4) X10*3/uL Baso # (Auto) 0.0 (0.0-0.2) X10*3/uL Abs Immat Gran (auto) 0.02 (0.00-0.03) X10*3/uL Absolute Neuts (auto) 3.4 (2.0-8.3) x10*3/uL Absolute Nucleated RBC 0.000 (0.0-0.012) X10*3/uL Nucleated RBC % (auto) 0.0 (0.0-0.2) /100WBC Sodium 141 (135-145) mmol/L Potassium 3.8 (3.3-5.1) mmol/L Chloride 106 (96-108) mmol/L Carbon Dioxide 25 (22-29) mmol/L Anion Gap 14 (12-20) BUN 22 H (9-16) mg/dL Creatinine 1.53 H (0.5-1.4) mg/dL Estim Creat Clear Calc 46.8 Estimated GFR 46 Random Glucose 93 (60-115) mg/dL Calcium 9.6 (8.4-10.2) mg/dL Magnesium 2.0 (1.6-2.6) mg/dL Total Bilirubin 0.6 (0.0-1.0) mg/dL Direct Bilirubin 0.2 (0.0-0.5) mg/dL AST 28 (5-37) U/L ALT 19 (0-40) U/L Alkaline Phosphatase 30 L (39-117) U/L Troponin I High Sens 6.2 (<3.5-35.0) ng/L Total Protein 6.6 (6.5-8.0) g/dL Albumin 4.0 (3.5-5.0) g/dL Lipase 21 (8-78) U/L TSH 5.36 H (0.32-4.0) uIU/mL Ethyl Alcohol < 10 mg/dL Independent Interpretation I performed an independent interpretation of an: EKG Interpretation: Rate: 80 Rhythm: NSR with 1st degree AVB [place]: left Normal P waves. Normal [place]. Normal QRS complex. ST T wave : no JANIE, ST elevated V2 qTC: 440 prior studies: no change from September 2023 The study has been interpreted contemporaneously by me. . External Record Review External record reviewed: Inpatient record and Office record Prescription Management I considered prescription management with: Other Discharge Plan Discharge Clinical Impression: Loss of consciousness Patient Disposition: Home, Self-Care Instructions: Generalized Tonic Clonic Seizures (ED) Additional Instructions: return for worsening symptoms or concerns should not cook over open flame, swim alone, drive until cleared by your doctor take medications, avoid alcohol, sleep well and take care of yourself Prescriptions: New levetiracetam [Keppra] 500 mg tablet 500 mg PO BID Qty: 60 0RF No Action labetalol 200 mg tablet 200 mg PO BID Qty: 180 8RF hydrochlorothiazide 25 mg tablet 25 mg PO DAILY Qty: 90 8RF Print Language: Indonesian
--- OUTSIDE RECORDS SUMMARY | 2023-11-26 09:25 | XMS_ITS | Patient Health Record ---
Author Organization Fausot Felder III, MD Address [address] [address] Care Team Providers Care Bank Officer Name Role Phone Chauncey Gunter MD Primary Care Provider Fausto Acosta Unavailable [phone] ALLERGIES Allergen (clinical drug ingredient) Drug/Non Drug Allergy documented on EMR Reaction Allergy Type Onset Date Status Ragweed Unknown Allergy Active [place] Unknown Allergy Active RESULTS Component Value Reference Range Notes Complete Blood Count Auto Di ff Reviewed date:06/01/2023 08:44:45 PM Interpretation: Performing Lab:[facility], [address] [place] [id number] Notes/Report: White Blood Count 8.2 4.8-10.8 X10*3/uL [...] Panel Reviewed date:06/01/2023 08:44:45 PM Interpretation: Performing Lab:[facility], [address] [place] [id number] Notes/Report: Sodium 139 135-145 mmol/L Potassium 4.2 3.3-5.1 mmol/L Chloride 102 96-108 mmol/L Carbon Dioxide 28 22-29 mmol/L Anion Gap 13 12-20 Blood Urea Nitrogen 17 9-16 mg/dL Creatinine 1.59 0.5-1.4 mg/dL Estimated Glomerular Filt Rate 44 NOTE: For -[place] individuals, multiply the result by 1.210. Chronic [...] Code Notes Problem Overweight (E66.3) Active confirmed [id number] His weight is now in the normal range and this problem has resolved. Problem Hypertension (I10) Active confirmed [id number] His blood pres sure is well controlled today At 130/84 andno change in his regimen was indicated. Problem Colonic polyp (K63.5) Active confirmed [id number] His polyp was a tubular adenoma and routine five-year colonoscopies are indicated. He and I discussed this and he is aware of the necessity for this and will address this issue with his center manager and primary care physician. Problem Stage IIA Hodgkin's disease (C81.90) Active confirmed [id number] There is no si gn of recurrent [...] Date Provider Diagnosis Fausto Felder III, MD [address] [place] [address] [place] [id number] 03/25/2023 Fausto Felder Stage IIA Hodgkin's disease C81.90 ; Overweight E66.3 ; Colonic polyp K63.5 and Hypertension I10 Fausto Felder III, MD [address] [place] [address] [place] [id number] 05/31/2023 Fausto Felder Stage IIA Hodgkin's disease C81.90 ; Hypertension I10 ; Colonic polyp K63.5 and Overweight E66.3 Fausto Felder III, MD [address] [place] [address] [address] [place] [place] [phone] 05/16/2023 Fausto Felder ASSESSMENTS Encounter Date Diagnosis [...] and will address this issue with his center manager and primary care physician. 05/31/2023 Colonic polyp (ICD-10 - K63.5) His polyp was a tubular adenoma and routine five-year colonoscopies are indicated. He and I discussed this and he is aware of the necessity for this and will address this issue with his center manager and primary care physician. 03/25/2023 Hypertension (ICD-10 [...] Details Provider Name:Fausto Felder, 06/01/2024 10:00:00 AM, [address] [place] [address] , [address], [place], [phone], Insurance Providers Payer Name Payer Address Payer Phone Subscriber Number Group Number Insured Name Patient Relationship to Insured Coverage Start Date Coverage End Date [employer] Medicare [address] [place] [address] [id number] Louis Waters Self - patient is the insured MEDICARE [facility] [address] [place] [address] [id number] Louis Waters Self - patient is the insured MEDICAID [address] [place] [id number] Louis Waters Self - patient is the [...]
[2023-11-26 09:33] VITALS: BP 130/80; PULSE 82; RESP 16; O2SAT 98
[2023-11-26 09:40] LABS: MANUAL DIFF FLAG NO
[2023-11-26 09:41] LABS: Basophils Percent Auto 0.3 % (0-2); Eosinophils Percent Auto 0.7 % (0-4); Hematocrit 40.3 % (42.0-52.0); Hemoglobin 13.7 g/dl (14.0-18.0); Imm Gran Abs Auto 0.02 X10*3/uL (0.00-0.03); Imm Gran Pct Auto 0.3 % (0.0-0.4); Lymphocytes Absolute Auto 2.1 X10*3/uL (1.2-4.9); Lymphocytes Percent Auto 35.2 % (20-40); Mean Corpuscular Hemoglobin 31.7 pg (27.0-33.0); Mean Corpuscular Volume 93.3 fL (80.0-98.0); Mean Platelet Volume 9.4 fL (9.4-12.4); Monocytes Absolute Auto 0.4 X10*3/uL (0.1-1.2); Monocytes Percent Auto 6.5 % (2-11); Neutrophils Absolute Auto 3.4 x10*3/uL (2.0-8.3); Platelet Count 158 X10*3/uL (160-400); Red Blood Count 4.32 X10*6/uL (4.60-5.80); Red Cell Distribution Width 14.9 % (11.0-16.0)
[2023-11-26] MEDS: levETIRAcetam 500 MG TABLET PO (09:57)
[2023-11-26 10:01] LABS: Troponin-I High Sensitivity 6.2 ng/L (<3.5-35.0)
[2023-11-26 10:35] LABS: Alanine Aminotransferase 19 U/L (0-40); Alkaline Phosphatase 30 U/L (39-117); Anion Gap 14 (12-20); Aspartate Amino Transferase 28 U/L (5-37); Bilirubin Direct 0.2 mg/dL (0.0-0.5); Bilirubin Total 0.6 mg/dL (0.0-1.0); Blood Urea Nitrogen 22 mg/dL (9-16); Calcium 9.6 mg/dL (8.4-10.2); Carbon Dioxide 25 mmol/L (22-29); Chloride 106 mmol/L (96-108); Creatinine Clr Calc Pharmacy 46.8; Estimated Glomerular Filt Rate 46; Ethanol < 10 mg/dL; Glucose Random 93 mg/dL (60-115); Lipase 21 U/L (8-78); Potassium 3.8 mmol/L (3.3-5.1); Sodium 141 mmol/L (135-145); Total Protein 6.6 g/dL (6.5-8.0)
--- NOTE | 2023-11-26 10:39 | PC.NURSE ---
patient educated on need for urine sample
[2023-11-26 10:49] LABS: TSH reflex Free T4 5.36 uIU/mL (0.32-4.0)
[2023-11-26 11:17] VITALS: BP 111/70; PULSE 78; RESP 14; TEMP 36.9; O2SAT 98
[2023-11-26 11:48] LABS: Free T4 (Free Thyroxine) 0.65 ng/dL (0.71-1.85)
== END 2023-11-26 11:30 | disposition home or self-care (01) ==
PROVIDERS: Emergency Provider Emergency Medicine; PCP Internal Medicine
DX: R55 Syncope and collapse (principal); R40.4 Transient alteration of awareness; I10 Essential (primary) hypertension; C81.90 Hodgkin lymphoma, unspecified, unspecified site; Z86.73 Personal history of transient ischemic attack (TIA), and cerebral infarction without residual deficits; Z92.21 Personal history of antineoplastic chemotherapy; Z79.899 Other long term (current) drug therapy
CPT/HCPCS: 36415; 80048; 80076; 80307; 83690; 83735; 84439; 84443; 84484; 85025; 93005; 99283; 99284

== ENCOUNTER → 2023-11-26 09:24 | Outpatient (BNV) | payer MEDICARE, SELFPAY | PROVIDERS: Emergency Provider Emergency Medicine; PCP Internal Medicine; Visit Provider Internal Medicine | DX: R55 Syncope and collapse (principal); R94.31 Abnormal electrocardiogram [ECG] [EKG] | CPT/HCPCS: 93010 ==

== ENCOUNTER 2023-12-12 10:57 | Outpatient (AMB) | payer MEDICARE, MEDICAID, SELFPAY ==
[2023-12-12 10:59] VITALS: BP 118/70; PULSE 85; O2SAT 97; BMI 22.4
--- NOTE | 2023-12-12 10:59 | A.OFFPC_ITS ---
Vital Signs 12/12/23 10:59 Height 5 ft 10 in Weight 156 lb 6 oz BMI 22.4 BP 118/70 Blood Pressure Location Lt brachial Position Sitting Pulse 85 Pulse Source Pulse Oximeter Pulse Oximetry (%) 97 Oxygen Delivery Method Room Air Intake Visit Reasons: Dizziness Iron Piler Required: No Accompanied by: Self / Same As Patient Allergies corn Allergy (Unknown, Verified 12/12/23 11:03) Unknown ragweed pollen Allergy (Unknown, Verified 12/12/23 11:03) Unknown Medication List - Last Reconciled 12/12/23 by Chauncey Gunter MD hydrochlorothiazide 25 mg PO DAILY labetalol 200 mg PO BID levetiracetam (Keppra) 500 mg PO BID Tobacco use date assessed: 07/23/23 Fall risk assessment: No Falls in past year Last assessed Fall Risk: 12/12/23 Dental Screening Dental Screen Date: 07/23/23 HPI Dizziness HPI Details seeing neurology for possible sz. started on keppra [facility] Medical History Tubular adenoma Hx of radiation therapy History of chemotherapy Hodgkins disease Syncope High blood pressure Surgical History Hx of surgical procedure H/O colonoscopy H/O rectal polypectomy Family History Father Multiple sclerosis Mother Breast cancer Social History Housing: House Alcohol intake: current Alcohol intake frequency: a few times a week Patient Tobacco Use Status: Never used Tobacco e-Cigarette/Vaping Use: Never Used Second Hand Smoke Exposure: No Substance Use Type: Marijuana service: No Current occupational status: unemployed Cognitive needs: No Hearing needs: No Vision needs: Yes (Glasses) Questionnaire Thrive Questionnaire Date Thrive assessed: 07/23/23 JOYCE-7 AMB Questionnaire JOYCE-7 Date JOYCE - 7 assessed: 10/05/22 Source: Developed by Drs. Fausto Bailey, Stefania Tiwari, Donald Ross and colleagues, with an educational durga from [employer]. Review of Systems Const Denies chills, Denies headache(s) and Denies weight loss ENT Denies headache(s) Card Denies chest pain, Denies syncope, Denies irregular heart rhythm and Denies dyspnea Resp Denies chest congestion, Denies cough and Denies dyspnea GI Denies abdominal pain, Denies change in stool character, Denies nausea and Denies vomiting Musc Denies deformity and Denies joint swelling Neuro Denies syncope and Denies headache(s) Physical exam (Primary Care) Vital Signs: Last Vital Signs Pulse 85 12/12/23 10:59 BP 118/70 12/12/23 10:59 Pulse Ox 97 12/12/23 10:59 Oxygen Delivery Method Room Air 12/12/23 10:59 BMI result Body Mass Index 22.4 Tobacco/Smoking Status: Tobacco use Status Tobacco use date assessed 07/23/23 12/12/23 10:59 Patient Tobacco Use Status Never used Tobacco 12/12/23 10:59 e-Cigarette/Vaping Use Never Used 12/12/23 10:59 Thrive Assessment: Date of Thrive Assessment Date Thrive assessed 07/23/23 12/12/23 10:59 Const General: cooperative, comfortable, no acute distress and alert Neck Neck: Yes no lymphadenopathy Thyroid: Thyroid normal Resp Effort & Inspection: normal respiratory effort Auscultation: clear to auscultation bilaterally Percussion: percussion normal Cardio Jugular venous distension: no JVD Palpation: normal PMI Rate: regular rate Rhythm: regular rhythm Heart sounds: S1 normal heart sound present and S2 normal heart sound present GI Inspection: Yes normal to inspection Palpation (GI): No hepatosplenomegaly present Skin General skin exam: no rashes or lesions noted Extrem General: Yes no clubbing, cyanosis or edema Assessment and Plan Assessment & Plan (1) Seizure disorder: Code(s): G40.909 - Epilepsy, unspecified, not intractable, without status epilepticus Plan: as per neurology Medications: Refilled labetalol 200 mg PO BID 180 tabs 8RF Coding Level of Care Code Est Pt Level 3 (15670) Diagnoses Seizure disorder G40.909
== END 2023-12-12 11:10 | disposition home or self-care (01) ==
PROVIDERS: PCP Internal Medicine; Visit Provider Internal Medicine
DX: G40.909 Epilepsy, unspecified, not intractable, without status epilepticus (principal)
CPT/HCPCS: 99213

== ENCOUNTER 2024-01-07 14:26 | Outpatient (REF) | payer OTHER, SELFPAY ==
--- NOTE | ~2024-01-07 | MR_ITS ---
EXAMINATION: MR BRAIN WITHOUT AND WITH CONTRAST CLINICAL INFORMATION: Seizure. COMPARISON: CT head from 10/04/2023. Brain MRI from 11/13/2012. TECHNIQUE: MRI of the brain was obtained using routine sequences without and following the administration of 7 mL of Gadavist intravenous contrast. FINDINGS: No focal restricted diffusion is demonstrated to suggest acute or subacute cerebral ischemia. No evidence of acute or chronic hemorrhagic products on heme-sensitive imaging. Scattered periventricular and deep white matter T2 FLAIR hyperintensities consistent with mild underlying microangiopathy. Chronic regions of encephalomalacia in the high right frontal lobe, posterior right parietal lobe, and high left parietal lobe. Proportional prominence of the ventricles and sulcal spaces without evidence of obstructive hydrocephalus. No abnormal mass effect. No midline shift. The hippocampi are symmetric in size, contour, and signal intensity. The temporal horns appear symmetric. Normal appearance of the pituitary gland. Normal positioning of the cerebellar tonsils. Normal arterial and venous vascular flow voids are present. No abnormal contrast enhancement. Normal, homogeneous marrow signal. Mild mucosal thickening of the paranasal sinuses. Small bilateral mastoid effusions. Bilateral lens extractions. MR/MR head/brain wo/w con IMPRESSION: 1. No acute intracranial abnormalities. No abnormal intracranial enhancement. 2. Chronic regions of encephalomalacia in the high right frontal lobe, posterior right parietal lobe, and high left parietal lobe. Mild underlying microangiopathy and generalized cerebral volume loss. 3. No additional MRI abnormalities to explain the patient's spells. Electronically signed by: Ariel Epps DO 01/18/2024 03:34 PM EDT
[2024-01-07] MEDS: gadobutroL 7.5 ML VIAL IVPUSH (15:42)
== END 2024-01-07 14:27 | disposition home or self-care (01) ==
LOC: HO.MRI 14:26
PROVIDERS: PCP Internal Medicine; Visit Provider Psychiatry & Neurology Neurology
DX: G40.909 Epilepsy, unspecified, not intractable, without status epilepticus (principal)
CPT/HCPCS: 70553; A9585

== ENCOUNTER 2024-02-05 11:36 | Outpatient (REF) | payer OTHER, SELFPAY ==
[2024-02-05 12:47] LABS: Blood Urea Nitrogen 15 mg/dL (9-16); Estimated Glomerular Filt Rate 47
== END 2024-02-05 11:37 | disposition home or self-care (01) ==
LOC: HO.LAB 11:36
PROVIDERS: PCP Internal Medicine; Visit Provider Psychiatry & Neurology Neurology
DX: I63.9 Cerebral infarction, unspecified (principal); G40.909 Epilepsy, unspecified, not intractable, without status epilepticus
CPT/HCPCS: 36415; 82565; 84520

== ENCOUNTER 2024-02-07 13:13 | Outpatient (AMB) | payer OTHER, SELFPAY ==
[2024-02-07 13:30] VITALS: BP 126/72; PULSE 85; O2SAT 99; BMI 22.1
--- NOTE | 2024-02-07 13:30 | MHC.PC.OV ---
Vital Signs 02/07/24 13:30 Height 5 ft 10 in Weight 154 lb BMI 22.1 BP 126/72 Blood Pressure Location Lt brachial Position Sitting Pulse 85 Pulse Source Pulse Oximeter Pulse Oximetry (%) 99 Oxygen Delivery Method Room Air Intake Visit Reasons: follow up Javascript Ui Developer Required: No Accompanied by: Self / Same As Patient Allergies corn Allergy (Unknown, Verified 02/07/24 13:35) Unknown ragweed pollen Allergy (Unknown, Verified 02/07/24 13:35) Unknown Tobacco use date assessed: 07/23/23 Fall risk assessment: No Falls in past year Last assessed Fall Risk: 02/07/24 Dental Screening Dental Screen Date: 07/23/23 HPI follow up HPI Details f/u HTN; neuro wondered about decreasing dose of rx PFSH Medical History Tubular adenoma Hx of radiation therapy History of chemotherapy Hodgkins disease Syncope High blood pressure Surgical History Hx of surgical procedure H/O colonoscopy H/O rectal polypectomy Family History Father Multiple sclerosis Mother Breast cancer Social History Housing: House Alcohol intake: current Alcohol intake frequency: a few times a week Patient Tobacco Use Status: Never used Tobacco Tobacco use type: Cigarette e-Cigarette/Vaping Use: Never Used Second Hand Smoke Exposure: No Substance Use Type: Marijuana service: No Current occupational status: unemployed Cognitive needs: No Hearing needs: No Vision needs: Yes (Glasses) Questionnaire PHQ-9 Over the last 2 weeks, how often have you been bothered by any of the following problems? 1. Little interest or pleasure in doing things: not at all 2. Feeling down, depressed, or hopeless: not at all 3. Trouble falling or staying asleep, or sleeping too much: not at all 4. Feeling tired or having little energy: not at all 5. Poor appetite or overeating: not at all 6. Feeling bad about yourself - or that you are a failure or have let yourself or your family down: not at all 7. Trouble concentrating on things, such as reading the newspaper or watching television: not at all 8. Moving or speaking so slowly that other people could have noticed. Or the opposite - being so fidgety or restless that you have been moving around a lot more than usual: not at all 9. Thoughts that you would be better off or of hurting yourself in some way: not at all Total score: 0 Depression Screening Interpretation: Negative Depression Screening Done: Yes 39110 - PHQ-9 Billing: Yes Source: Developed by Drs. Fausto Bailey, Stefania Tiwari, Donald Ross and colleagues, with an educational durga from [employer]. Thrive Questionnaire Date Thrive assessed: 07/23/23 AUDIT C Alcohol Use Questionnaire (AUDIT-C) 1. How often do you have a drink containing alcohol?: 2-3 times a week 2. How many drinks containing alcohol do you have on a typical day when you are drinking?: 1 or 2 Total Score: 3 JOYCE-7 AMB Questionnaire JOYCE-7 Date JOYCE - 7 assessed: 10/05/22 Source: Developed by Drs. Fausto Bailey, Stefania Tiwari, Donald Ross and colleagues, with an educational durga from [employer]. Review of Systems Const Denies chills, Denies headache(s) and Denies weight loss ENT Denies headache(s) Card Denies chest pain, Denies syncope, Denies irregular heart rhythm and Denies dyspnea Resp Denies chest congestion, Denies cough and Denies dyspnea GI Denies abdominal pain, Denies change in stool character, Denies nausea and Denies vomiting Musc Denies deformity and Denies joint swelling Neuro Denies syncope and Denies headache(s) Physical exam (Primary Care) Vital Signs: Last Vital Signs Pulse 85 02/07/24 13:30 BP 126/72 02/07/24 13:30 Pulse Ox 99 02/07/24 13:30 Oxygen Delivery Method Room Air 02/07/24 13:30 BMI result Body Mass Index 22.1 Tobacco/Smoking Status: Tobacco use Status Tobacco use date assessed 07/23/23 02/07/24 13:35 Patient Tobacco Use Status Never used Tobacco 02/07/24 13:35 Tobacco use type Cigarette 02/07/24 13:35 e-Cigarette/Vaping Use Never Used 02/07/24 13:35 PHQ-9: PHQ-9 Score PHQ-9: Total score 0 02/07/24 13:35 Depression Screening Interpretation: Negative Thrive Assessment: Date of Thrive Assessment Date Thrive assessed 07/23/23 02/07/24 13:35 Const General: cooperative, comfortable, no acute distress and alert Neck Neck: Yes no lymphadenopathy Thyroid: Thyroid normal Resp Effort & Inspection: normal respiratory effort Auscultation: clear to auscultation bilaterally Percussion: percussion normal Cardio Jugular venous distension: no JVD Palpation: normal PMI Rate: regular rate Rhythm: regular rhythm Heart sounds: S1 normal heart sound present and S2 normal heart sound present GI Inspection: Yes normal to inspection Palpation (GI): No hepatosplenomegaly present Skin General skin exam: no rashes or lesions noted Extrem General: Yes no clubbing, cyanosis or edema Assessment and Plan Assessment & Plan (1) Hypertension: Code(s): I10 - Essential (primary) hypertension Plan: decrease labetalol to 100mg bid Medications: New labetalol 100 mg PO BID 60 tabs 3RF Discontinued labetalol Discontinued Reason: Ancillary Entered New Order 200 mg PO BID 180 tabs 8RF Coding Level of Care Code Est Pt Level 3 (26597) Diagnoses Hypertension I10
== END 2024-02-07 13:53 | disposition home or self-care (01) ==
PROVIDERS: PCP Internal Medicine; Visit Provider Internal Medicine
DX: I10 Essential (primary) hypertension (principal)
CPT/HCPCS: 99213

== ENCOUNTER 2024-03-23 08:41 | Outpatient (AMB) | payer OTHER, SELFPAY ==
[2024-03-23 08:44] VITALS: BP 118/70; PULSE 89; O2SAT 93; BMI 21.7
--- NOTE | 2024-03-23 08:44 | A.OFFPC_ITS ---
Vital Signs 03/23/24 08:44 Height 5 ft 10 in Weight 151 lb BMI 21.7 BP 118/70 Blood Pressure Location Lt brachial Position Sitting Pulse 89 Pulse Source Pulse Oximeter Pulse Oximetry (%) 93 Oxygen Delivery Method Room Air Intake Visit Reasons: pe Senior Payroll Administrator Required: No Accompanied by: Self / Same As Patient Allergies corn Allergy (Unknown, Verified 03/23/24 08:46) Unknown ragweed pollen Allergy (Unknown, Verified 03/23/24 08:46) Unknown Medication List - Last Reconciled 03/24/24 by Chauncey Gunter MD hydrochlorothiazide 25 mg PO DAILY labetalol 100 mg PO BID levetiracetam (Keppra) 500 mg PO BID Tobacco use date assessed: 07/23/23 Fall risk assessment: No Falls in past year Last assessed Fall Risk: 03/23/24 Dental Screening Dental Screen Date: 07/23/23 HPI pe HPI Details HTN on Rx; doing well; compliant [facility] Medical History Tubular adenoma Hx of radiation therapy History of chemotherapy Hodgkins disease Syncope High blood pressure Surgical History Hx of surgical procedure H/O colonoscopy H/O rectal polypectomy Family History Father Multiple sclerosis Mother Breast cancer Social History Housing: House Alcohol intake: current Alcohol intake frequency: a few times a week Patient Tobacco Use Status: Never used Tobacco Tobacco use type: Cigarette e-Cigarette/Vaping Use: Never Used Second Hand Smoke Exposure: No Substance Use Type: Marijuana service: No Current occupational status: unemployed Cognitive needs: No Hearing needs: No Vision needs: Yes (Glasses) Questionnaire PHQ-9 Over the last 2 weeks, how often have you been bothered by any of the following problems? 1. Little interest or pleasure in doing things: not at all 2. Feeling down, depressed, or hopeless: not at all 3. Trouble falling or staying asleep, or sleeping too much: not at all 4. Feeling tired or having little energy: not at all 5. Poor appetite or overeating: not at all 6. Feeling bad about yourself - or that you are a failure or have let yourself or your family down: not at all 7. Trouble concentrating on things, such as reading the newspaper or watching television: not at all 8. Moving or speaking so slowly that other people could have noticed. Or the opposite - being so fidgety or restless that you have been moving around a lot more than usual: not at all 9. Thoughts that you would be better off or of hurting yourself in some way: not at all Total score: 0 Source: Developed by Drs. Fausto Bailey, Stefania Tiwari, Donald Ross and colleagues, with an educational durga from [employer]. Thrive Questionnaire Date Thrive assessed: 07/23/23 I am a: Patient What is your living situation today?: I have a steady place to live Within the past 12 months, did the food you bought not last and you didn't have the money to get more?: Never true Within the past 12 months, did you worry whether your food would run out before you got money to buy more?: Never true Do you have trouble paying for medicines?: No Do you have trouble getting transportation to medical appointments?: No Do you have trouble paying your heating and electricity bill?: No Do you have trouble taking care of your child, family member or friend?: I choose not to answer this question Do you have trouble with day-to-day activities such as bathing, preparing meals, shopping, managing finances, etc.?: No Are you currently unemployed and looking for a job?: I choose not to answer this question Are you interested in more education?: I choose not to answer this question Please select the resources that you would like help with: None Currently or been in a relationship where the following occur: No concerns reported THRIVE Score: 0 AUDIT C Alcohol Use Questionnaire (AUDIT-C) 1. How often do you have a drink containing alcohol?: Monthly or less 2. How many drinks containing alcohol do you have on a typical day when you are drinking?: 1 or 2 3. How often do you have six or more drinks on one occasion?: Never Total Score: 1 JOYCE-7 AMB Questionnaire JOYCE-7 Date JOYCE - 7 assessed: 03/23/24 Feeling nervous, anxious, or on edge: 0 = Not at all Not being able to stop or control worryin = Not at all Worrying too much about different things: 0 = Not at all Trouble relaxin = Not at all Being so restless that it is hard to sit still: 0 = Not at all Becoming easily annoyed or irritable: 0 = Not at all Feeling afraid as if something awful might happen: 0 = Not at all Total JOYCE-7 score (0-4 normal; 5-9 mild; 10-14 moderate; 15-21 severe): 0 Source: Developed by Drs. Fausto Bailey, Stefania Tiwari, Donald Ross and colleagues, with an educational durga from [employer]. Review of Systems Const Denies chills, Denies fatigue, Denies headache(s) and Denies weight loss Eyes Denies change in vision, Denies diplopia and Denies eye pain ENT Denies vertigo, Denies dizziness, Denies headache(s) and Denies nasal discharge Card Denies chest pain, Denies rapid heart rate and Denies dyspnea on exertion Resp Denies chest congestion, Denies cough, Denies pain with cough and Denies dyspnea on exertion GI Denies abdominal pain, Denies hematochezia and Denies change in bowel habits Musc Denies myalgias, Denies arthralgias and Denies joint swelling Skin/Breast Denies lesions and Denies unusual bruising Neuro Denies vertigo, Denies dizziness, Denies headache(s) and Denies focal weakness Endo Denies fatigue Physical exam (Primary Care) Vital Signs: Last Vital Signs Pulse 89 03/23/24 08:44 BP 118/70 03/23/24 08:44 Pulse Ox 93 03/23/24 08:44 Oxygen Delivery Method Room Air 03/23/24 08:44 BMI result Body Mass Index 21.7 Tobacco/Smoking Status: Tobacco use Status Tobacco use date assessed 07/23/23 03/23/24 08:48 Patient Tobacco Use Status Never used Tobacco 03/23/24 08:48 Tobacco use type Cigarette 03/23/24 08:48 e-Cigarette/Vaping Use Never Used 03/23/24 08:48 PHQ-9: PHQ-9 Score PHQ-9: Total score 0 03/23/24 08:48 Thrive Assessment: Date of Thrive Assessment Date Thrive assessed 07/23/23 03/23/24 08:48 Currently or been in a relationship where the following occur: No concerns reported Const General: cooperative, healthy appearing and no acute distress Orientation/consciousness: oriented to person, oriented to place and oriented to time HENMT Head: Yes normal to inspection, Yes normocephalic and Yes atraumatic Mouth: Normal oral and palatal mucosa present and tongue normal Throat: Yes posterior oropharynx normal and Yes uvula midline Eyes General: appearance normal, both eyes and all related structures Neck Neck: Yes normal visual inspection, Yes full ROM and Yes no lymphadenopathy Thyroid: Thyroid normal Carotids: normal carotid upstroke Chest Chest palpation & inspection: normal inspection of the chest Resp Effort & Inspection: normal respiratory effort and able to speak in complete sentences Auscultation: clear to auscultation bilaterally Cardio Jugular venous distension: no JVD Palpation: normal PMI Rate: regular rate Rhythm: regular rhythm Heart sounds: S1 normal heart sound present and S2 normal heart sound present GI Inspection: Yes normal to inspection Palpation (GI): Soft to palpation and No hepatosplenomegaly present Auscultation: normal bowel sounds General: Yes no CVA tenderness Back/Spine/Pelvis Back: no CVA tenderness Skin General skin exam: no rashes or lesions noted Neuro General: oriented to person, oriented to place and oriented to time Extrem General: Yes normal to inspection and Yes full ROM Coding Level of Care Code Est Pt Prev Care >65y(40392) Diagnoses Physical exam Z00.00 Hypertension I10 Assessment & Plan Assessment & Plan (1) Physical exam: Code(s): Z00.00 - Encounter for general adult medical examination without abnormal findings Category: Medical Plan: stable; do labs (2) Hypertension: Code(s): I10 - Essential (primary) hypertension Category: Medical Plan: stable; same rx
== END 2024-03-23 09:12 | disposition home or self-care (01) ==
PROVIDERS: PCP Internal Medicine; Visit Provider Internal Medicine
DX: Z00.00 Encounter for general adult medical examination without abnormal findings (principal); I10 Essential (primary) hypertension

== ENCOUNTER → 2024-03-23 08:41 | Outpatient (BNVA) | payer OTHER, SELFPAY | PROVIDERS: PCP Internal Medicine; Visit Provider Internal Medicine | DX: Z00.00 Encounter for general adult medical examination without abnormal findings (principal); I10 Essential (primary) hypertension | CPT/HCPCS: 96127; 99397 ==

== ENCOUNTER 2024-04-08 14:23 | Outpatient (REF) | payer OTHER, SELFPAY ==
[2024-04-08 14:49] LABS: MANUAL DIFF FLAG NO
[2024-04-08 15:30] LABS: Basophils Percent Auto 0.3 % (0-2); Eosinophils Absolute Auto 0.1 X10*3/uL (0.0-0.4); Eosinophils Percent Auto 0.8 % (0-4); Hematocrit 38.8 % (42.0-52.0); Hemoglobin 13.2 g/dl (14.0-18.0); Imm Gran Abs Auto 0.02 X10*3/uL (0.00-0.03); Imm Gran Pct Auto 0.3 % (0.0-0.4); Lymphocytes Absolute Auto 2.1 X10*3/uL (1.2-4.9); Lymphocytes Percent Auto 33.6 % (20-40); Mean Corpuscular Hemoglobin 31.1 pg (27.0-33.0); Mean Corpuscular Volume 91.3 fL (80.0-98.0); Mean Platelet Volume 9.7 fL (9.4-12.4); Monocytes Absolute Auto 0.4 X10*3/uL (0.1-1.2); Monocytes Percent Auto 6.5 % (2-11); Neutrophils Absolute Auto 3.7 x10*3/uL (2.0-8.3); Neutrophils Percent Auto 58.5 % (45-73); Platelet Count 171 X10*3/uL (160-400); Red Blood Count 4.25 X10*6/uL (4.60-5.80); Red Cell Distribution Width 14.2 % (11.0-16.0); White Blood Count 6.3 X10*3/uL (4.8-10.8)
[2024-04-08 16:00] LABS: Alanine Aminotransferase 14 U/L (0-40); Albumin Level 4.2 g/dL (3.5-5.0); Alkaline Phosphatase 40 U/L (39-117); Anion Gap 12 (12-20); Aspartate Amino Transferase 26 U/L (5-37); Bilirubin Total 0.6 mg/dL (0.0-1.0); Blood Urea Nitrogen 13 mg/dL (9-16); Calcium 9.5 mg/dL (8.4-10.2); Carbon Dioxide 28 mmol/L (22-29); Chloride 102 mmol/L (96-108); Cholesterol 207 mg/dL (<200); Estimated Glomerular Filt Rate 45; Glucose Fasting 91 mg/dL (60-99); HDL Cholesterol 72 mg/dL (>40); LDL Cholesterol Calculated 121 mg/dL (<100); Potassium 3.4 mmol/L (3.3-5.1); Sodium 139 mmol/L (135-145); Triglycerides 74 mg/dL (<150)
[2024-04-08 16:15] LABS: Prostate Specific Antigen Scr 6.47 ng/mL (<0.05-4.0)
[2024-04-08 16:16] LABS: Thyroid Stimulating Hormone 7.54 uIU/mL (0.32-4.0)
== END 2024-04-08 14:24 | disposition home or self-care (01) ==
LOC: HO.LAB 14:23
PROVIDERS: PCP Internal Medicine; Visit Provider Internal Medicine
DX: Z00.00 Encounter for general adult medical examination without abnormal findings (principal); Z13.0 Encounter for screening for diseases of the blood and blood-forming organs and certain disorders involving the immune mechanism; Z13.220 Encounter for screening for lipoid disorders; Z13.29 Encounter for screening for other suspected endocrine disorder; Z13.9 Encounter for screening, unspecified; Z12.5 Encounter for screening for malignant neoplasm of prostate
CPT/HCPCS: 36415; 80053; 80061; 84153; 84443; 85025

== ENCOUNTER 2024-04-29 13:33 | Outpatient (AMB) | payer OTHER, SELFPAY ==
[2024-04-29 13:36] VITALS: BP 124/70; PULSE 100; O2SAT 97; BMI 23.0
--- NOTE | 2024-04-29 13:36 | A.OFFPC_ITS ---
Vital Signs 04/29/24 13:36 Height 5 ft 10 in Weight 160 lb BMI 23.0 BP 124/70 Blood Pressure Location Lt brachial Position Sitting Pulse 100 Pulse Source Pulse Oximeter Pulse Oximetry (%) 97 Oxygen Delivery Method Room Air Intake Visit Reasons: EKG follow up Allergies corn Allergy (Unknown, Verified 04/29/24 13:36) Unknown ragweed pollen Allergy (Unknown, Verified 04/29/24 13:36) Unknown Medication List - Last Reconciled 05/01/24 by Chauncey Gunter MD hydrochlorothiazide 25 mg PO DAILY labetalol 100 mg PO BID levetiracetam (Keppra) 500 mg PO BID Tobacco use date assessed: 04/29/24 Fall risk assessment: No Falls in past year Last assessed Fall Risk: 04/29/24 Dental Screening Dental Screen Date: 07/23/23 HPI EKG follow up HPI Details had an abnormal EEG and 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; sees neurology [facility] Medical History Tubular adenoma Hx of radiation therapy History of chemotherapy Hodgkins disease Syncope High blood pressure Surgical History Hx of surgical procedure H/O colonoscopy H/O rectal polypectomy Family History Father Multiple sclerosis Mother Breast cancer Social History Housing: House Alcohol intake: current Alcohol intake frequency: a few times a week Patient Tobacco Use Status: Never used Tobacco Tobacco use type: Cigarette e-Cigarette/Vaping Use: Never Used Second Hand Smoke Exposure: No Substance Use Type: Marijuana service: No Current occupational status: unemployed Cognitive needs: No Hearing needs: No Vision needs: Yes (Glasses) Questionnaire PHQ-9 Over the last 2 weeks, how often have you been bothered by any of the following problems? 1. Little interest or pleasure in doing things: not at all 2. Feeling down, depressed, or hopeless: not at all 3. Trouble falling or staying asleep, or sleeping too much: not at all 4. Feeling tired or having little energy: not at all 5. Poor appetite or overeating: not at all 6. Feeling bad about yourself - or that you are a failure or have let yourself or your family down: not at all 7. Trouble concentrating on things, such as reading the newspaper or watching television: not at all 8. Moving or speaking so slowly that other people could have noticed. Or the opposite - being so fidgety or restless that you have been moving around a lot more than usual: not at all 9. Thoughts that you would be better off or of hurting yourself in some way: not at all Total score: 0 Depression Screening Interpretation: Negative Depression Screening Done: Yes 99913 - PHQ-9 Billing: Yes Source: Developed by Drs. Fausto Bailey, Stefania Tiwari, Donald Ross and colleagues, with an educational durga from [employer]. Thrive Questionnaire Date Thrive assessed: 04/29/24 I am a: Patient What is your living situation today?: I have a steady place to live Within the past 12 months, did the food you bought not last and you didn't have the money to get more?: Never true Within the past 12 months, did you worry whether your food would run out before you got money to buy more?: Never true Do you have trouble paying for medicines?: No Do you have trouble getting transportation to medical appointments?: No Do you have trouble paying your heating and electricity bill?: No Do you have trouble taking care of your child, family member or friend?: I choose not to answer this question Do you have trouble with day-to-day activities such as bathing, preparing meals, shopping, managing finances, etc.?: No Are you currently unemployed and looking for a job?: I choose not to answer this question Are you interested in more education?: I choose not to answer this question Please select the resources that you would like help with: None Currently or been in a relationship where the following occur: No concerns reported THRIVE Score: 0 AUDIT C Alcohol Use Questionnaire (AUDIT-C) 1. How often do you have a drink containing alcohol?: Monthly or less 2. How many drinks containing alcohol do you have on a typical day when you are drinking?: 1 or 2 3. How often do you have six or more drinks on one occasion?: Never Total Score: 1 JOYCE-7 AMB Questionnaire JOYCE-7 Date JOYCE - 7 assessed: 03/23/24 Source: Developed by Drs. Fausto Bailey, Stefania Tiwari, Donald Ross and colleagues, with an educational durga from [employer]. Review of Systems Const Denies chills, Denies headache(s) and Denies weight loss ENT Denies headache(s) Card Denies chest pain, Denies syncope, Denies irregular heart rhythm and Denies dyspnea Resp Denies chest congestion, Denies cough and Denies dyspnea GI Denies abdominal pain, Denies change in stool character, Denies nausea and Denies vomiting Musc Denies deformity and Denies joint swelling Neuro Denies syncope and Denies headache(s) Physical exam (Primary Care) Vital Signs: Last Vital Signs Pulse 100 04/29/24 13:36 BP 124/70 04/29/24 13:36 Pulse Ox 97 04/29/24 13:36 Oxygen Delivery Method Room Air 04/29/24 13:36 BMI result Body Mass Index 23.0 Tobacco/Smoking Status: Tobacco use Status Tobacco use date assessed 04/29/24 04/29/24 13:40 Patient Tobacco Use Status Never used Tobacco 04/29/24 13:40 Tobacco use type Cigarette 04/29/24 13:40 e-Cigarette/Vaping Use Never Used 04/29/24 13:40 PHQ-9: PHQ-9 Score PHQ-9: Total score 0 04/29/24 13:40 Depression Screening Interpretation: Negative Thrive Assessment: Date of Thrive Assessment Date Thrive assessed 04/29/24 04/29/24 13:40 Currently or been in a relationship where the following occur: No concerns reported Const General: cooperative, comfortable, no acute distress and alert Neck Neck: Yes no lymphadenopathy Thyroid: Thyroid normal Resp Effort & Inspection: normal respiratory effort Auscultation: clear to auscultation bilaterally Percussion: percussion normal Cardio Jugular venous distension: no JVD Palpation: normal PMI Rate: regular rate Rhythm: regular rhythm Heart sounds: S1 normal heart sound present and S2 normal heart sound present GI Inspection: Yes normal to inspection Palpation (GI): No hepatosplenomegaly present Skin General skin exam: no rashes or lesions noted Extrem General: Yes no clubbing, cyanosis or edema Coding Level of Care Code Est Pt Level 3 (84015) Diagnoses Seizure disorder G40.909 Additional Codes PHQ-9 - 66370 - PHQ-9 Billing: Yes ([id number]) Assessment & Plan Assessment & Plan (1) Seizure disorder: Code(s): G40.909 - Epilepsy, unspecified, not intractable, without status epilepticus Category: Medical Plan: table; as per neurology
--- OUTSIDE RECORDS SUMMARY | 2024-05-05 19:33 | XMS_ITS ---
Author Organization [facility] Address [address] [place] [id number] Care Team Providers Care Seed Specialist Name Role Phone Jani MCCURDY, Chauncey Primary Care Provider Unavaila Bishnu Bella Jr REASON FOR VISIT screening colon Encounters Encounter Location Date Provider Diagnosis [facility] [address] [place] [id number] 11/22/2023 Bishnu May Jr Encounter for screening colonoscopy Z12.11 and Colon polyps K63.5 ASSESSMENTS Encounter Date Diagnosis Assessment Notes Treatment Notes Treatment Clinical Notes 11/22/2023 Encounter for screening colonoscopy (ICD-10 - Z12.11) 11/22/2023 Colon polyps (ICD-10 - K63.5) PLAN OF TREATMENT No Information
--- OUTSIDE RECORDS SUMMARY | 2024-05-05 19:33 | XMS_ITS ---
Author Organization [facility] Address [address] [place] [id number] Care Team Providers Care Salmon Gillnet Vessel Operator Name Role Phone Jani MCCURDY, Chauncey Primary Care Provider UnavailBishnu Baca Jr REASON FOR VISIT pathology Encounters Encounter Location Date Provider Diagnosis [facility] [address] [place] [id number] 12/05/2023 Bishnu May Jr PLAN OF TREATMENT No Information
--- OUTSIDE RECORDS SUMMARY | 2024-05-05 19:33 | XMS_ITS | Patient Health Record ---
Author Organization [facility] Address [address] [place] [phone] Care Team Providers Care Crystal Grower Name Role Phone Chauncey Gunter MD Primary Care Provider Susanne May Jr, Bishnu Brewster ALLERGIES No Known Allergies RESULTS Component Value Reference Range Notes Pathology Reviewed date:12/05/2023 11:06:55 AM Interpretation: Performing Lab:[facility], [address] [place] [phone] Notes/Report: REASON FOR REFERRAL No Information MEDICATIONS Medication SIG (Take, Route, Frequency, Duration) Notes Start Date End Date Status Labetalol HCl 200mg Active hydroCHLOROthiazide 25mg Active Aspir-81 81mg Active SOCIAL HISTORY Sex Assigned At : Social History Observation Description Sex Assigned At Unknown PROBLEMS Problem Type ICD Code Onset Dates Problem Status W/U Status Risk SNOMED Code Notes Problem Colon cancer screening (Z12.11) Active confirmed 640303536 Problem Long-term use of aspirin therapy (Z79.82) Active confirmed 979444905 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 [address] [place] [phone] 10/10/2023 Bishnu May Jr Long-term use of aspirin therapy Z79.82 ; Colon cancer screening Z12.11 and joint terminal attack controller current use of diuretic Z79.899 [facility] [address] [place] [phone] 10/10/2023 Bishnu May Jr [facility] [address] [place] [phone] 10/14/2023 Bishnu May Jr Colon cancer screening Z12.11 [facility] [address] [place] [phone] 12/05/2023 Bishnu May Jr ASSESSMENTS Encounter Date Diagnosis Assessment Notes Treatment Notes Treatment Clinical Notes 11/22/2023 Encounter for screening colonoscopy (ICD-10 - Z12.11) 11/22/2023 Colon polyps (ICD-10 - K63.5) 10/10/2023 Colon cancer screening (ICD-10 - Z12.11) Taking medicine at home - create a routine material was printed 10/10/2023 Long-term use of aspirin therapy (ICD-10 - Z79.82) 10/14/2023 Colon cancer screening (ICD-10 - Z12.11) 10/10/2023 retirement current use of diuretic (ICD-10 - Z79.899) 10/14/2023 Other PLAN OF TREATMENT Future Test Test Name Order Date COLONOSCOPY 03/04/2013 Insurance Providers Payer Name Payer Address Payer Phone Subscriber Number Group Number Insured Name Patient Relationship to Insured Coverage Start Date Coverage End Date [facility] [address] [place], [place] [id number] ANYA TAYLOR Self - patient is the insured MEDICAID OF [employer] [address] [place] [phone] [id number] ANYA TAYLOR Self - patient is the insured MEDICAL (GENERAL) HISTORY Medical History History ICD Code Hypertension Hodgkin's disease stage II a 1996 status post XRT and chemotherapy Colon polyps, history of tub ular adenoma, last colonoscopy 2013, ten-year followup Surgical History Surgery Date(Month/Year) Mediastinoscopy 1995
--- OUTSIDE RECORDS SUMMARY | 2024-05-05 19:33 | XMS_ITS ---
Author Organization [facility] Address [address] [place] [phone] Care Team Providers Care Vice President Business & Corporate Development Name Role Phone Chauncey Gunter MD Primary Care Provider UnavailBishnu Baca Jr REASON FOR VISIT Please place procedure order in the computer Encounters Encounter Location Date Provider Diagnosis [facility] [address] [place] [phone] 10/14/2023 Bishnu May Jr Colon cancer screening Z12.11 ASSESSMENTS Encounter Date Diagnosis Assessment Notes Treatment Notes Treatment Clinical Notes 10/14/2023 Colon cancer screening (ICD-10 - Z12.11) 10/14/2023 Other PLAN OF TREATMENT No Information
== END 2024-04-29 13:53 | disposition home or self-care (01) ==
PROVIDERS: PCP Internal Medicine; Visit Provider Internal Medicine
DX: G40.909 Epilepsy, unspecified, not intractable, without status epilepticus (principal)

== ENCOUNTER → 2024-04-29 13:33 | Outpatient (BNVA) | payer OTHER, SELFPAY | PROVIDERS: PCP Internal Medicine; Visit Provider Internal Medicine | DX: G40.909 Epilepsy, unspecified, not intractable, without status epilepticus (principal) | CPT/HCPCS: 96127; 99212 ==

== ENCOUNTER → 2024-06-30 13:18 | Outpatient (BNVA) | payer OTHER, SELFPAY | PROVIDERS: PCP Internal Medicine; Visit Provider Internal Medicine | DX: I10 Essential (primary) hypertension (principal) | CPT/HCPCS: 99212 ==

== ENCOUNTER 2024-07-24 11:34 | Outpatient (REF) | payer OTHER, SELFPAY ==
[2024-07-24 11:58] LABS: MANUAL DIFF FLAG NO
[2024-07-24 12:19] LABS: Basophils Percent Auto 0.5 % (0-2); Eosinophils Percent Auto 0.3 % (0-4); Hematocrit 43.3 % (42.0-52.0); Hemoglobin 14.7 g/dl (14.0-18.0); Imm Gran Abs Auto 0.02 X10*3/uL (0.00-0.03); Imm Gran Pct Auto 0.3 % (0.0-0.4); Lymphocytes Absolute Auto 2.5 X10*3/uL (1.2-4.9); Lymphocytes Percent Auto 39.1 % (20-40); Mean Corpuscular HGB Conc 33.9 g/dl (31.0-36.0); Mean Corpuscular Hemoglobin 31.1 pg (27.0-33.0); Mean Corpuscular Volume 91.7 fL (80.0-98.0); Mean Platelet Volume 9.4 fL (9.4-12.4); Monocytes Absolute Auto 0.3 X10*3/uL (0.1-1.2); Monocytes Percent Auto 5.3 % (2-11); Neutrophils Absolute Auto 3.5 x10*3/uL (2.0-8.3); Neutrophils Percent Auto 54.5 % (45-73); Platelet Count 172 X10*3/uL (160-400); Red Blood Count 4.72 X10*6/uL (4.60-5.80); Red Cell Distribution Width 14.9 % (11.0-16.0); White Blood Count 6.4 X10*3/uL (4.8-10.8)
[2024-07-24 12:57] LABS: Anion Gap 13 (12-20); Blood Urea Nitrogen 23 mg/dL (9-16); Calcium 9.9 mg/dL (8.4-10.2); Carbon Dioxide 29 mmol/L (22-29); Chloride 102 mmol/L (96-108); Cholesterol 243 mg/dL (<200); Estimated Glomerular Filt Rate 42; Glucose Fasting 108 mg/dL (60-99); HDL Cholesterol 65 mg/dL (>40); LDL Cholesterol Calculated 160 mg/dL (<100); Potassium 4.1 mmol/L (3.3-5.1); Sodium 140 mmol/L (135-145); Triglycerides 91 mg/dL (<150)
[2024-07-24 13:13] LABS: TSH reflex Free T4 8.51 uIU/mL (0.32-4.0)
--- OUTSIDE RECORDS SUMMARY | 2024-07-24 13:51 | XMS_ITS ---
Author Organization [facility] Address [address] [place] [address] Care Team Providers Care Laser Set Up Operator Name Role Phone Jani MCCURDY, Chauncey Primary Care Provider Unavaila Bishnu Bella Jr [phone] REASON FOR VISIT screening colon Encounters Encounter Location Date Provider Diagnosis [facility] [address] [place] [phone] 11/22/2023 Bishnu May Jr Encounter for screening colonoscopy Z12.11 and Colon polyps K63.5 ASSESSMENTS Encounter Date Diagnosis Assessment Notes Treatment Notes Treatment Clinical Notes 11/22/2023 Encounter for screening colonoscopy (ICD-10 - Z12.11) 11/22/2023 Colon polyps (ICD-10 - K63.5) PLAN OF TREATMENT No Information
--- OUTSIDE RECORDS SUMMARY | 2024-07-24 13:51 | XMS_ITS ---
Author Organization [facility] Address [address] [place] [address] Care Team Providers Care Water/Wastewater Project Engineer Name Role Phone Chauncey Gunter MD Primary Care Provider UnavailBishnu Baca Jr REASON FOR VISIT Please place procedure order in the computer Encounters Encounter Location Date Provider Diagnosis [facility] [address] [place] [phone] 10/14/2023 Bishnu May Jr Colon cancer screening Z12.11 ASSESSMENTS Encounter Date Diagnosis Assessment Notes Treatment Notes Treatment Clinical Notes 10/14/2023 Colon cancer screening (ICD-10 - Z12.11) 10/14/2023 Other PLAN OF TREATMENT No Information
--- OUTSIDE RECORDS SUMMARY | 2024-07-24 13:51 | XMS_ITS ---
Author Organization [facility] Address [address] [place] [address] Care Team Providers Care Rate Supervisor Name Role Phone Jani MCCURDY, Chauncey Primary Care Provider UnavailBishnu Baca Jr REASON FOR VISIT pathology Encounters Encounter Location Date Provider Diagnosis [facility] [address] [place] [phone] 12/05/2023 Bishnu May Jr PLAN OF TREATMENT No Information
--- OUTSIDE RECORDS SUMMARY | 2024-07-24 13:51 | XMS_ITS ---
Author Organization Fausto Felder III, MD Address [address] [place] [address] Care Team Providers Care Floor Person Name Role Phone Jani MCCURDY, Chauncey Primary Care Provider Fausto Acosta [phone] REASON FOR VISIT Telehealth Medications Medication SIG (Take, Route, Frequency, Duration) Notes Start Date End Date Status Labetalol HCl 200 MG 1 tablet Orally Twi ce a day Active hydroCHLOROthiazide 25 MG TAKE 1 TABLET BY MOUTH EVERY DAY Oral Active Adult Aspirin EC Low Strengt h 81 MG 1 tablet Orally Once a day Active Encounters Encounter Location Date Provider Diagnosis Fausto Felder III, MD [address] [place] [address] [place] [address] 05/16/2023 Fausto Felder Plan Of Treatment No Information Progress Notes * Najma TAYLORhanDOB:1955 (68 yo M)Acc No.[id number]:05/16/2023 Patient:?Louis TAYLOR Provider:?Fausto Felder MD :1955???Age:67 Y???Sex:Male Noe e:05/16/2023 Address:[address] [address], [id number] Pcp:Chauncey Gunter MD Subjective: * Chief Complaints: * ???1. Telehealth. * Medical History:? * Medications:?Taking Adult As pirin EC Low Strength 81 MG Tablet Delayed Release 1 tablet Orally Once a day , Taking Labetalol HCl 200 MG Tablet 1 tablet Orally Twice a day , Taking hydroCHLOROthiazide 25 MG Tablet TAKE 1 TABLET BY MOUTH EVERY DAY Oral Objective: * Vitals:? Assessment: Plan: * Treatment: * Images: * The named appointment provid er may or may not be the originator of this progress note, and it is not deemed complete until electronically signed by the appointment provider. Sign off status: Pending * Provider:?Fausto Felder MD Date:?04/27 Generated for Moisés rojas/Christa/Haily on:?07/24/2024 01:51 PM EST
--- OUTSIDE RECORDS SUMMARY | 2024-07-24 13:51 | XMS_ITS | Patient Health Record ---
Author Organization Fausto Felder III, MD Address [address] [place] [address] Care Team Providers Care Blow Mold Operator Name Role Phone Chauncey Gunter MD Primary Care Provider Fausto Acosta Unavailable [phone] Allergies Allergen (clinical drug ingredient) Drug/Non Drug Allergy documented on EMR Reaction Allergy Type Onset Date Status Ragweed Unknown Allergy Active Mitchell Mitchell Unknown Allergy Active Reason For Referral No Information Medications Medication SIG (Take, Route, Frequency, Duration) [...] nonsmoker Additional Findings: Tobacco Non-User Aggressive non-smoker Problems Problem Type SNOMED Code ICD Code Onset Dates Problem Status W/U Status Risk Notes Problem 872567145 Overweight (E66.3) Active confirmed His weight is n ow in the normal range and this problem has resolved. Problem 60774692 Hypertension (I10) Active confirmed His blood press ure is well controlled today At 130/84 andno change in his regimen was indicated. Problem 81584247 Colonic polyp (K63.5) Active confirmed His polyp was a tubular adenoma and routine five-year colonoscopies are indicated. He and I discussed this and he is aware of the necessity for this and will address this issue with his soap chipper and primary care physician. Problem 931420805 Stage IIA Hodgkin's disease (C81.90) Active confirmed There is no sig n of recurrent Hodgkin's disease today. No sign of a new primary lymphoma or other malignancy today. Plan Of Treatment Pending Test Test Name Order Date PROFILE, RANDOM (COMPREHENSIVE METABOLIC ) 03/25/2023 PROFILE, RANDOM (COMPREHENSIVE METABOLIC ) 02/19/2017 LDH 02/19/2017 CBC w DIFF 02/19/2017 SED RATE (ESR) 02/19/2017 CBC WITH AUTO DIFF 03/25/2023 Insurance Providers Payer Name Payer Address Payer Phone Subscriber Number Group Number Insured Name Patient Relationship to Insured Coverage Start Date Coverage End Date [employer] Medicare [address] [place] [address] [id number] Louis Waters Self - patient is the insured MEDICARE [facility] [address] [facility] [place] [address] [id number] Louis Waters Self - patient is the insured MEDICAID [address] [place], [place] [id number] Louis Waters Self - patient is the insured Medical (General) History Medical History History ICD Code hypertension stage II Hodgkin's disease a ge 41 treated with radiation and chemotherapy 1996 2006 tubular adenoma on colonoscopy, las t 2015 hyperplastic and adenomatous colonic errol yps Surgical History Surgery Date(Month/Year) Cataract surgery 12/2021 colonoscopy, one hyperplastic polyp Hilton lawrence 2013 colonoscopy,1 tubular adenoma 2007 dental extraction mediastinal node biopsy 1995
--- OUTSIDE RECORDS SUMMARY | 2024-07-24 13:51 | XMS_ITS ---
Author Organization Fausto Felder III, MD Address [address] [place] [address] [place] [address] Care Team Providers Care Clinical Genetics Laboratory Chief Name Role Phone Chauncey Gunter MD Primary Care Provider Fausto Acosta Unavailable [phone] Allergies Allergen (clinical drug ingredient) Drug/Non Drug Allergy documented on EMR Reaction Allergy Type Onset Date Status Ragweed Unknown Allergy Active Fisher Fisher Unknown Allergy Active REASON FOR VISIT Follow [...] Date Provider Diagnosis Fausto Felder III, MD [address] [place] [address] [place] [address] 06/01/2024 Fausto Felder Stage IIA Hodgkin's disease [...] day Progress Notes * José Miguel TAYLOROB:1955 (68 yo M)Acc No.[id number]:06/01/2024 Progress Notes Patient:?Louis TAYLOR Provider:?Fausto Felder MD :1955???Age:68 Y???Sex:Male Noe e:06/01/2024 Address:[address] [facility] [id number] Pcp:Chauncey Gunter MD Subjective: * Chief Complaints: * ???1. Follow up. * HPI: ???COVID-19 Screening:?Questions?Have you had any new onset fever, chills, cough, congestion, sore throat, shortness of breath, muscle aches??No * ROS:?General/Constitutional:?pain?only normal aches and pains.?Chills?denies.?Fatigue?admits.?Fever?denies.?ENT:?Decreased hearing?denies.?Respiratory:?Cough?denies.?Cardiovascular:?Chest pain with exertion?denies.?Dyspnea on exertion?denies.?Shortness of breath?denies.?Gastrointestinal:?Constipation?denies.?Decreased appetite?denies.?Diarrhea?denies.?Heartburn?denies.?Nausea?denies.?Rectal bleeding?denies.?Vomiting?denies.?Hematology:?bruising?denies.?petechiae?denies.?Swollen glands?none have been noted.?Genitourinary:?Frequent urination?denies.?Musculoskeletal:?Muscle aches?denies.?Painful joints?denies.?Sciatica?denies.?Weakness?denies.?Skin:?Itching?denies.?Rash?denies.?Skin lesion(s)?denies.?Neurologic:?Difficulty speaking?denies.?Dizziness?denies.?Headache?denies.?Low back pain?denies.?Psychiatric:?Depressed mood?denies.? * Medical History:?Hypertensio n, stage II Hodgkin's disease age 41 treated with radiation and chemotherapy 1996, 2006 tubular adenoma on colonoscopy, last 2015, Hyperplastic and adenomatous colonic polyps. * Surgical History:?mediastina l node biopsy 1995, dental extraction , colonoscopy,1 tubular adenoma 2006, colonoscopy, one hyperplastic polyp May 2013, Cataract surgery 12/2021. * Hospitalization/Major Diagno stic Procedure:?Denies Past Hospitalization. * Family History:?Father: dece ased 53 yrs, multiple sclerosis.?Mother: alive 74 yrs, breast cancer (in remission 20 years).?2 brother(s) - healthy. .? He is single with no children. 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 * Social History:?Tobacco Use:?Tobacco Use/Smoking?Patient is a?nonsmoker ?Additional Findings: Tobacco Non-User?Aggressive non-smoker ???He was born [place], [place]. 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 * Medications:?Taking Adult As pirin EC Low Strength 81 MG Tablet Delayed Release 1 tablet Orally Once a day , Taking Labetalol HCl 200 MG Tablet 1 tablet Orally Twice a day , Taking hydroCHLOROthiazide 25 MG Tablet TAKE 1 TABLET BY MOUTH EVERY DAY Oral , Medication List reviewed and reconciled with the patient * Allergies:?Ragweed, Fisher: Al sugar. Objective: * Vitals:? * Examination: ???General Examination: ?GENERAL APPEARANCE:?pleasant, well nourished, well developed, in no acute distress, calm and relaxed.?HEAD:?atraumatic, normocephalic.?EYES:?eomi, perrla, anicteric, conjugate.?EARS:?normal.?NOSE:?septum intact.?ORAL CAVITY:?normal, unremarkable.?NECK/THYROID:?no jugular venous distention, no carotid bruit, thyroid normal.?LYMPH NODES:?no enlarged lymph nodes,spleen normal.?SKIN:?no suspicious lesions, anicteric.?HEART:?no clicks, gallops, murmurs, or rubs, regular rhythm, S1, S2 normal, no s3, or vascular bruits.?LUNGS:?clear to auscultation .?BREASTS:??no masses palpable bilaterally.?ABDOMEN:?bowel sounds normal, no ascites, no organomegaly, no mass.?RECTAL EXAM:?not examined.?MUSCULOSKELETAL:?extremities unremarkable, no clubbing, cyanosis or edema.?PERIPHERAL PULSES:?normal.?NEUROLOGIC:?alert and oriented, cranial nerves 2-12 grossly intact, deep tendon reflexes 2+ symmetrical, motor strength normal upper and lower extremities, sensory exam intact.?PSYCH:?alert, oriented.? Assessment: * Assessment: 1.?Stage IIA Hodgkin's disea se - C81.90???Notes :There is no sign of recurrent Hodgkin's disease today. No sign of a new primary lymphoma or other malignancy today.??? Plan: * Treatment: * Images: * The named appointment provid er may or may not be the originator of this progress note, and it is not deemed complete until electronically signed by the appointment provider. Sign off status: Pending * Provider:?Fausto Felder MD Date:?10/2024 Generated for Moisés rojas/Christa/Haily on:?07/24/2024 01:51 PM EST History and Physical Notes * [...]
--- OUTSIDE RECORDS SUMMARY | 2024-07-24 13:51 | XMS_ITS | Clinical Summary ---
Author Organization [employer] Address [address] [place] [address] Care Team Providers Care Investment Manager Name Role Phone Unavailable Primary Care Provider Unavailabl e Social History Tobacco Use Types Packs/Day Years Used Date Smoking Tobacco: Never Assessed Sex and Gender Information Value Date Recorded Sex Assigned at Male 03/26/2022 10:24 AM EDT Legal Sex Male 10:24 AM EDT Gender Identity Male 03/26/2022 10:24 AM EDT Sexual Orientation Don't know 03/26/2022 10 :24 AM EDT Plan of Treatment Health Maintenance Due Date Last Done Comments CT Colonography 1955 Colonoscopy 1956 Colorectal Cancer Screening 1956 Depression Screening 1956 FIT DNA/Cologuard 1956 FIT 1956 FOBT 1956 Lipid Panel 1956 SDOH Screening 1956 Sigmoidoscopy 1956 Alcohol/Substance Use Screening 1968 Tobacco Screening 1968 Hepatitis C Screening 1974 Pneumococcal Vaccine: 50+ Years (1 of 1 - PCV) 2006 COVID-19 Vaccine ( season) 2024 04/23/2022, 09/08/2021, 05/15/2021, Additional history exists Influenza Vaccine (#1) 2024 , 04/05/2021, 01/28/2019 DTaP/Tdap/Td Vaccines (2 - Td or Tdap) 01/24/2027 01/24/2017 RSV Patients and Patients Aged 60 years or older (1 - 1-dose 75+ series) 10/22/2031 Zoster Vaccines Completed 07/09/2019, 04/01/2019 HIB Vaccines Aged Out No longer eligi ble based on patient's age to complete this topic HPV Vaccines Aged Out No longer eligi ble based on patient's age to complete this topic Hepatitis A Vaccines Aged Out No long er eligible based on patient's age to complete this topic Hepatitis B Vaccines Aged Out No long er eligible based on patient's age to complete this topic IPV Vaccines Aged Out No longer eligi ble based on patient's age to complete this topic Meningococcal Vaccine Aged Out No guillermina michael eligible based on patient's age to complete this topic RSV under 20 months Aged Out No longe r eligible based on patient's age to complete this topic Rotavirus Vaccines Aged Out No longer eligible based on patient's age to complete this topic Insurance [address] [address] [place]
--- OUTSIDE RECORDS SUMMARY | 2024-07-24 13:52 | XMS_ITS | Patient Health Record ---
Author Organization [facility] Address [address] [place] [address] Care Team Providers Care Chili Pepper Grinder Name Role Phone Chauncey Gunter MD Primary Care Provider Susanne May Jr, Bishnu Brewster ALLERGIES No Known Allergies RESULTS Component Value Reference Range Notes Pathology Reviewed date:12/05/2023 11:06:55 AM Interpretation: Performing Lab:[facility], [address] [place] [phone] Notes/Report: REASON FOR REFERRAL No Information MEDICATIONS [...] Problem Colon cancer screening (Z12.11) Active confirmed 640433453 Problem Long-term use of aspirin therapy (Z79.82) Active confirmed 729134685 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) Active confirmed [id number] VITAL SIGNS Blood pressure diastolic 00 mm Hg 10/10/2023 Height 5 ft 10 in in 10/10/2023 Blood pressure systolic 00 mm Hg 10/10/2023 Weight 160 lbs 10/10/2023 BMI 22.96 kg/m2 10/10/2023 Encounters Encounter Location Date Provider Diagnosis [facility] [address] [place] [id number] 11/22/2023 Bishnu May Jr Encounter for screening colonoscopy Z12.11 and Colon polyps K63.5 [facility] [address] [place] [phone] 10/10/2023 Bishnu May Jr Long-term use of aspirin therapy Z79.82 ; Colon cancer screening Z12.11 and 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 Z79.899 [facility] [address] [place] [phone] 10/10/2023 Bishnu May Jr [facility] [address] [place] [phone] 10/14/2023 Bishnu May Jr Colon cancer screening Z12.11 [facility] [address] [place] [phone] 12/05/2023 Bishnu May Jr ASSESSMENTS Encounter Date [...] Colon cancer screening (ICD-10 - Z12.11) 10/10/2023 shelter current use of diuretic (ICD-10 - Z79.899) 10/14/2023 Other PLAN OF TREATMENT Future Test Test Name Order Date COLONOSCOPY 03/04/2013 Insurance Providers Payer Name Payer Address Payer Phone Subscriber Number Group Number Insured Name Patient Relationship to Insured Coverage Start Date Coverage End Date [facility] [address] [place], [place] [id number] ANYA TAYLOR Self - patient is the insured MEDICAID OF [employer] [address] [place] [phone] [phone] [id number] ANYA TAYLOR Self - patient is the insured MEDICAL (GENERAL) HISTORY Medical History History ICD Code Hypertension Hodgkin's disease stage II a 1996 status post XRT and chemotherapy Colon polyps, history of tub ular adenoma, last colonoscopy 2013, ten-year followup Surgical History Surgery Date(Month/Year) Mediastinoscopy 1995
--- OUTSIDE RECORDS SUMMARY | 2024-07-24 13:52 | XMS_ITS | Clinical Summary ---
Author Organization [facility] Address [address] [place] [address] Phone Care Team Providers Care Security Professional Name Role Phone Chauncey Gunter MD Primary Care Provider [phone] Social History Tobacco Use Types Packs/Day Years Used Date Smoking Tobacco: Never Assessed Sex and Gender Information Value Date Recorded Sex Assigned at Not on file Legal Sex Male 3:42 PM EDT Gender Identity Not on file Sexual Orientation Not on file Plan of Treatment Health Maintenance Due Date Last Done Comments Pneumococcal Vaccine: 50+ Years (1 of 1 - PCV) 2006 Abdominal Aortic Aneurysm (AAA) Screen 03/14/2024 Cholesterol Screening (Lipid Panel) 03/14/2024 Colorectal Cancer Screening: Colonoscopy 03/14/2024 Depression Screening 03/14/2024 Falls Risk Assessment 03/14/2024 Hepatitis C Screening 03/14/2024 Medicare Annual Wellness Visit 03/14/2024 Social Influencers of Health Screening 03/14/2024 RSV Immunization Patients 60+ Years Old (1 - 1-dose 75+ series) 10/22/2031 DTaP,Tdap,and Td Vaccines (4 - Td or Tdap) 10/03/2033 10/04/2023, 03/30/2023, 01/24/2017 Zoster Vaccines Completed 07/09/2019, 04/01/2019 COVID-19 Vaccine Completed 02/07/2024, 08/2022, 04/23/2022, Additional history exists Influenza Vaccine Completed 02/07/2024, , 04/23/2022, Additional history exists HIB Vaccines Aged Out No longer eligi [...] on patient's age to complete this topic MMR Vaccines Aged Out No longer eligi ble based on patient's age to complete this topic Meningococcal ACWY Vaccine Aged Out N o longer eligible based on patient's age to complete this topic Meningococcal B Vacine Aged Out No lo nger eligible based on patient's age to complete this topic RSV Immunization Patients Under 20 months Aged Out No longer eligible based on patient's age to complete this topic Varicella Vaccines Aged Out No longer eligible based on patient's age to complete this topic Insurance MED[place]ID - [place] [facility] MEDICARE Member Subscriber Plan / Payer (Ef fective 2023-Present) Name:Louis Waters Relation to Subscriber:Self Name:Jt Louis Payer ID:[id number] Group ID:[id number] Type:Not on file Address: [address] [place] [id number] Care Teams Security Professional Relationship Specialty Start Date End Date Chauncey Gunter MD [address] [place] [address] [place] [phone] PCP - General Internal Medicine 04/15/24
--- OUTSIDE RECORDS SUMMARY | 2024-07-24 13:52 | XMS_ITS ---
Author Organization Fausto Felder III, MD Address [address] [place] [address] Care Team Providers Care Anger Control Counselor Name Role Phone Chauncey Gunter MD Primary Care Provider Fausto Acosta Unavailable [phone] Allergies Allergen (clinical drug ingredient) Drug/Non Drug Allergy documented on EMR Reaction Allergy Type Onset Date Status Ragweed Unknown Allergy Active Hatteras Hatteras Unknown Allergy Active REASON FOR VISIT History of stage IIA Hodgkin's disease, Hypertension, Overweight, Colonic polyps Medications Medication SIG (Take, Route, Frequency, Duration) [...] nonsmoker Additional Findings: Tobacco Non-User Aggressive non-smoker Vital Signs Temperature 97.7 degrees Fahrenheit 05/31/19 24 Blood pressure systolic 120 mm Hg 05/31/19 24 Blood pressure diastolic 70 mm Hg 024 Heart Rate 57 /min 05/31/2023 Height 71 in 05/31/2023 Weight 156 lbs 05/31/2023 BMI 21.76 kg/m2 05/31/2023 Encounters Encounter Location Date Provider Diagnosis Fausto Felder III, MD [address] [place] [address] [place] [address] 05/31/2023 Fausto Felder Stage IIA Hodgkin's disease C81.90 ; Hypertension I10 ; Colonic polyp K63.5 and Overweight E66.3 Assessments Encounter Date Diagnosis (ICD Code) Assessment Notes Treatment Notes Treatment Clinical Notes 05/31/2023 Stage IIA Hodgkin's disease (ICD-10 - C81.90) There is no sign of recurrent Hodgkin's disease today. No sign of a new primary lymphoma or other malignancy today. 05/31/2023 Hypertension (ICD-10 - I10) His blood pressure is well controlled today At 130/84 andno change in his regimen was indicated. 05/31/2023 Colonic polyp (ICD-10 - K63.5) His polyp was a tubular adenoma and routine five-year colonoscopies are indicated. He and I discussed this and he is aware of the necessity for this and will address this issue with his assembler crimper and primary care physician. 05/31/2023 Overweight (ICD-10 - E66.3) His weight is now in the normal range and this problem has resolved. Plan Of Treatment Medication Medication Name Sig Start Date Stop Date Notes hydroCHLOROthiazide 25 MG TAKE 1 TABLET BY MOUTH EVERY DAY Oral Labetalol HCl 200 MG 1 tablet Orally Twi ce a day Adult Aspirin EC Low Strength 81 MG 1 ta blet Orally Once a day Next Appt Details Follow Up: 1 Year, Reason: O ffice visit Progress Notes * José Miguel TAYLOROB:1955 (67 yo M)Acc No.[id number]:05/31/2023 Progress Notes Patient:?Louis Taylor Provider:?Fausto Felder MD :1955???Age:67 Y???Sex:Male Noe e:05/31/2023 Address:[id number] Pcp:Chauncey Gunter MD Subjective: * Chief Complaints: * ???History of stage IIA Hodg kin's diseaseHypertensionOverweightColonic polyps * HPI: ???v:? He is seen once a year, subseqquent to a diagnosis of Hodgkin's disease treated with radiation. He recently had gout treated with 6 days of prednisone successfully innvolving both feet.He says he is feeling healthy and well. His examination today was unremarkable. No change in his therapy as needed. Surveillance will continue. * ROS:?General/Constitutional:?pain?only normal aches and pains.?Chills?denies.?Fatigue?admits.?Fever?denies.?ENT:?Decreased hearing?denies.?Respiratory:?Cough?denies.?Cardiovascular:?Chest pain with exertion?denies.?Dyspnea on exertion?denies.?Shortness of breath?denies.?Gastrointestinal:?Constipation?occasional.?Decreased appetite?denies.?Diarrhea?denies.?Heartburn?occasional.?Nausea?denies.?Rectal bleeding?denies.?Vomiting?denies.?Hematology:?bruising?denies.?petechiae?denies.?Swollen glands?none have been noted.?Genitourinary:?Frequent urination?once a night.?Musculoskeletal:?Muscle aches?denies.?Painful joints?denies.?Sciatica?denies.?Weakness?denies.?Skin:?Itching?denies.?Rash?denies.?Skin lesion(s)?denies.?Neurologic:?Difficulty speaking?denies.?Dizziness?denies.?Headache?denies.?Low back pain?denies.?Psychiatric:?Depressed mood?denies.? * Medical History:? * Surgical History:?mediastina l node biopsy 1995dental extraction colonoscopy,1 tubular adenoma 2006colonoscopy, one hyperplastic polyp May 2013Cataract surgery 12/2021 * Hospitalization/Major Diagno stic Procedure:?No Hospitalization History. * Family History:?Father: dece ased 53 yrs, multiple sclerosis.?Mother: alive 74 yrs, breast cancer (in remission 20 years).?2 brother(s) - healthy. .? He is single with no children. 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 * Social History:?Tobacco Use:?Tobacco Use/Smoking?Patient is a?nonsmoker ?Additional Findings: Tobacco Non-User?Aggressive non-smoker ???He was born [place], [place]. 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 * Medications:?TakingAdult Asp irin EC Low Strength 81 MG Tablet Delayed Release 1 tablet Orally Once a dayLabetalol HCl 200 MG Tablet 1 tablet Orally Twice a dayhydroCHLOROthiazide 25 MG Tablet TAKE 1 TABLET BY MOUTH EVERY DAY Oral Medication List reviewed and reconciled with the patientTaking Adult Aspirin EC Low Strength 81 MG Tablet Delayed Release 1 tablet Orally Once a dayTaking Labetalol HCl 200 MG Tablet 1 tablet Orally Twice a dayTaking hydroCHLOROthiazide 25 MG Tablet TAKE 1 TABLET BY MOUTH EVERY DAY Oral Medication List reviewed and reconciled with the patient * Allergies:?RagweedCorn: Magdaleno rgyno[Allergies Verified] Objective: * Vitals:?Ht: 71, Wt:156, BMI: 21.76, BP:120/70, HR:57, Temp:97.7, Wt-k.76. * Examination: ???General Examination: ?GENERAL APPEARANCE:?pleasant, well nourished, well developed, in no acute distress, calm and relaxed , man.?HEAD:?atraumatic, normocephalic.?EYES:?eomi, perrla, anicteric, conjugate.?EARS:?normal.?NOSE:?septum intact.?ORAL CAVITY:?normal, unremarkable.?NECK/THYROID:?no jugular venous distention, no carotid bruit, thyroid normal.?LYMPH NODES:?no enlarged lymph nodes,spleen normal.?SKIN:?no suspicious lesions, anicteric.?HEART:?no clicks, gallops, murmurs, or rubs, regular rhythm, S1, S2 normal, no s3, or vascular bruits.?LUNGS:?clear to auscultation .?BREASTS:??no masses palpable bilaterally.?ABDOMEN:?bowel sounds normal, no ascites, no organomegaly, no mass.?RECTAL EXAM:?not examined.?MUSCULOSKELETAL:?extremities unremarkable, no clubbing, cyanosis or edema, Small area of muscle? atrophy.? Mid back.?PERIPHERAL PULSES:?normal.?NEUROLOGIC:?alert and oriented, cranial nerves 2-12 grossly intact, deep tendon reflexes 2+ symmetrical, motor strength normal upper and lower extremities, sensory exam intact.?PSYCH:?alert, oriented.? Assessment: * Assessment: 1.?Stage IIA Hodgkin's disea se - C81.90, There is no sign of recurrent Hodgkin's disease today. No sign of a new primary lymphoma or other malignancy today.?2.?Hypertension - I10, His blood pressure is well controlled today At 130/84 andno change in his regimen was indicated.?3.?Colonic polyp - K63.5, His polyp was a tubular adenoma and routine five-year colonoscopies are indicated. He and I discussed this and he is aware of the necessity for this and will address this issue with his assembler crimper and primary care physician.?4.?Overweight - E66.3, His weight is now in the normal range and this problem has resolved.? Plan: * Treatment: * Procedure Codes:? * Follow Up:?1 Year (Reason: O ffice visit) * Images: * Sign off status: Completed true * Provider:?Fausto Felder MD Date:?09/2023 Generated for Moisés rojas/Christa/eTronaldo on:?07/24/2024 01:51 PM EST History and Physical Notes * Examination Category Sub-Category Detail Notes General Examination GENERAL APPEARANCE: pleasant , well nourished, well developed, in no acute distress, calm and relaxed , man HEAD: atraumatic, normocep halic EYES: eomi, perrla, [...] extremities unremark able, no clubbing, cyanosis or edema, Small area of muscle atrophy. Mid back LYMPH NODES: no enlarged lymph no kris,spleen normal RECTAL EXAM: not examined PSYCH: alert, oriented ORAL CAVITY: normal, unremarkable
[2024-07-24 14:12] LABS: Free T4 (Free Thyroxine) 0.85 ng/dL (0.71-1.85)
== END 2024-07-24 11:35 | disposition home or self-care (01) ==
LOC: HO.LAB 11:34
PROVIDERS: PCP Internal Medicine; Visit Provider Internal Medicine
DX: Z01.818 Encounter for other preprocedural examination (principal); I10 Essential (primary) hypertension
CPT/HCPCS: 36415; 80048; 80061; 84439; 84443; 85025

== ENCOUNTER 2024-12-28 08:53 | Outpatient (AMB) | payer OTHER, SELFPAY ==
--- OUTSIDE RECORDS SUMMARY | 2023-11-22 04:30 | XMS_ITS ---
Author Organization [facility] Address [address] [place] [address] Care Team Providers Care Mohs Surgeon/General Dermatologist Name Role Phone Jani MCCURDY, Chauncey Primary Care Provider Unavaila Bishnu Bella Jr REASON FOR VISIT screening colon Encounters Encounter Location Date Provider Diagnosis [facility] [place] [address] [place] [id number] 11/22/2023 Bishnu May Jr Encounter for screening colonoscopy Z12.11 and Colon polyps K63.5 Assessments Encounter Date Diagnosis (ICD Code) Assessment Notes Treatment Notes Treatment Clinical Notes Section Notes 11/22/2023 Encounter for screening colonoscopy (ICD-10 - Z12.11) 11/22/2023 Colon polyps (ICD-10 - K63.5) Plan Of Treatment No Information Progress Notes * ANYA TAYLOR ODOB: (69 yo M)Acc No.[id number]:11/22/2023 COLON WITH MAC Patient: ANYA SIEGEL Provider: Shelly May MD :1955 A ge:68 Y S ex:Male Date:11/22/2023 Address:[address] [place] [address] Pcp:Chauncey Gunter MD Subjective: * Chief Complaints: * 1 . Screening colon. * Medical History: Objective: * Vitals: Assessment: * Assessment: 1. E ncounter for screening colonoscopy - Z12.11 (Primary) 2 . C olon polyps - K63.5 Plan: * Treatment: * Procedure Codes: 4 5385 LESION REMOVAL COLONOSCOPY, 30107 COLONOSCOPY AND BIOPSY, Modifiers: 59 * * The named appointment provid er may or may not be the originator of this progress note, and it is not deemed complete until electronically signed by the appointment provider. Sign off status: Pending * Provider: Shelly May MD Date: 0 11/22/2023 Generated for Moisés rojas/Christa/Fabiitting on: 0 12/28/2024 09:13 AM EDT
--- NOTE | 2024-12-28 09:13 | MHC.PC.OV ---
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 Required: No Accompanied by: Self / Same As Patient Allergies corn Allergy (Unknown, Verified 12/28/24 09:22) Unknown ragweed pollen Allergy (Unknown, Verified 12/28/24 09:22) Unknown Medication List - Last Reconciled 12/28/24 by Charmaine Mcneill PA-C hydrochlorothiazide 25 mg PO DAILY labetalol 100 mg PO BID levetiracetam 250 mg PO Q12H 90 days Tobacco use date assessed: 12/28/24 Fall risk assessment: No Falls in past year Last assessed Fall Risk: 12/28/24 Dental Screening Dental Screen Date: 12/28/24 Did you have a dental visit in the last 12 months?: No Did you have a dental problem in the last 6 months where you did not have access to dental care?: No Was dental information given to patient?: No HPI HUMERA Dr Gunter HPI Details 69-year-old male with past medical history of gout, hypertension, seizure disorder last seen 06/[address] Gunter coming in for transfer of care. Presenting with a follow-up for chronic conditions and management of dizziness. The patient reports experiencing occasional dizziness, which he manages by adjusting his posture to redirect blood flow. He has not experienced dizziness in the past 2-3 months. Recent blood work indicated elevated kidney function with a creatinine level of 1.63 mg/dL. The patient is advised to monitor hydration due to the diuretic effect of hydrochlorothiazide. The patient's LDL cholesterol is elevated at 160 mg/dL, with a history of dietary recommendations to reduce cholesterol intake. Blood work revealed high TSH and low thyroid hormone levels, contributing to weight loss. The patient will have thyroid levels rechecked. The patient has a history of epilepsy, confirmed by a brainwave test, and is under the care of a neurologist. The patient reports yellowish-green spots on his legs and thighs, with a referral to dermatology for further evaluation. The patient experiences frequent nasal congestion and has a history of allergies to corn and certain foods. A referral to an power equipment technology instructor is planned. [facility] Medical History Tubular adenoma Hx of radiation therapy History of chemotherapy Hodgkins disease Syncope High blood pressure Surgical History Hx of surgical procedure H/O colonoscopy H/O rectal polypectomy Family History Father Multiple sclerosis Mother Breast cancer Social History Housing: House Alcohol intake: current Alcohol intake frequency: a few times a week Patient Tobacco Use Status: Never used Tobacco Tobacco use type: Cigarette e-Cigarette/Vaping Use: Never Used Second Hand Smoke Exposure: No Substance Use Type: Marijuana service: No Current occupational status: unemployed Cognitive needs: No Hearing needs: No Vision needs: Yes (Glasses) Questionnaire PHQ-9 Over the last 2 weeks, how often have you been bothered by any of the following problems? 1. Little interest or pleasure in doing things: not at all 2. Feeling down, depressed, or hopeless: not at all 3. Trouble falling or staying asleep, or sleeping too much: not at all 4. Feeling tired or having little energy: not at all 5. Poor appetite or overeating: not at all 6. Feeling bad about yourself - or that you are a failure or have let yourself or your family down: not at all 7. Trouble concentrating on things, such as reading the newspaper or watching television: not at all 8. Moving or speaking so slowly that other people could have noticed. Or the opposite - being so fidgety or restless that you have been moving around a lot more than usual: not at all 9. Thoughts that you would be better off or of hurting yourself in some way: not at all Total score: 0 00235 - PHQ-9 Billing: Yes Source: Developed by Drs. Fausto Bailey, Stefania Tiwari, Donald Ross and colleagues, with an educational durga from [employer]. Thrive Questionnaire Date Thrive assessed: 12/28/24 I am a: Patient What is your living situation today?: I have a steady place to live Within the past 12 months, did the food you bought not last and you didn't have the money to get more?: Never true Within the past 12 months, did you worry whether your food would run out before you got money to buy more?: Never true Do you have trouble paying for medicines?: No Do you have trouble getting transportation to medical appointments?: No Do you have trouble paying your heating and electricity bill?: No Do you have trouble taking care of your child, family member or friend?: I choose not to answer this question Do you have trouble with day-to-day activities such as bathing, preparing meals, shopping, managing finances, etc.?: No Are you currently unemployed and looking for a job?: No Are you interested in more education?: No Please select the resources that you would like help with: None Currently or been in a relationship where the following occur: No concerns reported THRIVE Score: 0 AUDIT C Alcohol Use Questionnaire (AUDIT-C) 1. How often do you have a drink containing alcohol?: 2-4 times a month 2. How many drinks containing alcohol do you have on a typical day when you are drinking?: 1 or 2 3. How often do you have six or more drinks on one occasion?: Never Total Score: 2 JOYCE-7 AMB Questionnaire JOYCE-7 Date JOYCE - 7 assessed: 12/28/24 Feeling nervous, anxious, or on edge: 0 = Not at all Not being able to stop or control worryin = Not at all Worrying too much about different things: 0 = Not at all Trouble relaxin = Not at all Being so restless that it is hard to sit still: 0 = Not at all Becoming easily annoyed or irritable: 0 = Not at all Feeling afraid as if something awful might happen: 0 = Not at all Total JOYCE-7 score (0-4 normal; 5-9 mild; 10-14 moderate; 15-21 severe): 0 Source: Developed by Drs. Fausto Bailey, Stefania Tiwari, Donald Ross and colleagues, with an educational durga from [employer] JOYCE-7 Assessment Billing JOYCE-7 Assessment Tool: JOYCE-7 Assessment 63607 Review of Systems Const Denies body aches, Denies chills, Denies fever(s), Denies headache(s) and Denies poor appetite Eyes Reports no additional complaints ENT Denies dysphagia, Denies dizziness, Denies headache(s) and Denies odynophagia Card Denies chest pain, Denies syncope, Denies edema, Denies irregular heart rhythm, Denies lightheadedness and Denies dyspnea Resp Denies cough and Denies dyspnea GI Denies abdominal pain, Denies constipation, Denies dysphagia, Denies diarrhea, Denies nausea, Denies odynophagia and Denies vomiting Reports no additional complaints Musc Reports no additional complaints and Denies abnormal gait Skin/Breast Reports system reviewed and no additional complaints, except as documented Neuro Denies abnormal gait, Denies dizziness, Denies syncope and Denies headache(s) Psych Reports no additional complaints Physical exam (Primary Care) Vital Signs: Last Vital Signs Pulse 88 12/28/24 09:14 BP 126/64 12/28/24 09:14 Pulse Ox 98 12/28/24 09:14 Oxygen Delivery Method Room Air 12/28/24 09:14 BMI result Body Mass Index 21.6 Tobacco/Smoking Status: Tobacco use Status Tobacco use date assessed 12/28/24 12/28/24 09:20 Patient Tobacco Use Status Never used Tobacco 12/28/24 09:20 Tobacco use type Cigarette 12/28/24 09:20 e-Cigarette/Vaping Use Never Used 12/28/24 09:20 PHQ-9: PHQ-9 Score PHQ-9: Total score 0 12/28/24 09:44 Thrive Assessment: Date of Thrive Assessment Date Thrive assessed 12/28/24 12/28/24 09:20 Currently or been in a relationship where the following occur: No concerns reported Const General: cooperative, healthy appearing, comfortable and no acute distress Orientation/consciousness: patient oriented x3 HENMT Head: Yes normocephalic Ears: hearing grossly normal bilaterally General nose exam: Normal external nose present Eyes General: appearance normal, both eyes and all related structures Conjunctivae: conjunctivae normal Neck Neck: Yes full ROM and Yes no lymphadenopathy Resp Effort & Inspection: normal respiratory effort Auscultation: clear to auscultation bilaterally, no crackles, no rales, no rhonchi and no wheezes Cardio Rate: regular rate Rhythm: regular rhythm Skin General skin exam: no rashes or lesions noted Neuro General: patient oriented x3 Gait exam (Neuro): Normal gait present Extrem General: Yes normal to inspection, Yes full ROM and No edema Psych Affect: normal affect Attitude: cooperative Insight: Good insight present (Psych) Judgement: Good judgement present (Psych) Coding Level of Care Code Est Pt Level 4 (33720) Diagnoses Hypertension I10 Seizure disorder G40.909 Hypercholesterolemia E78.00 Elevated TSH R79.89 Elevated serum creatinine R79.89 Weight loss R63.4 Elevated fasting glucose R73.01 Hypopigmentation L81.9 Allergic rhinitis J30.9 Additional Codes JOYCE-7 Assessment Billing - JOYCE-7 Assessment Tool: JOYCE-7 Assessment 04223 ([id number]) PHQ-9 - 94418 - PHQ-9 Billing: Yes ([id number]) Assessment & Plan Assessment & Plan (1) Hypertension: Code(s): I10 - Essential (primary) hypertension Category: Medical Plan: Patient's blood pressure has been low-normal for many years. Given his kidney function and episodes of dizziness plan to have his dose of hydrochlorothiazide. Patient regularly monitors his blood pressure at home and agrees to reach out to the office if they exceed 140/90. Avoid salt intake and encourage healthy diet and regular exercise. (2) Seizure disorder: Code(s): G40.909 - Epilepsy, unspecified, not intractable, without status epilepticus Category: Medical Plan: Patient is currently following with Dr. Smith and on Keppra. Denies any breakthrough seizures (3) Hypercholesterolemia: Code(s): E78.00 - Pure hypercholesterolemia, unspecified Category: Medical Plan: Avoid foods that are high in cholesterol such as red meat, fried foods, eggs and baked goods. Triglyceride goal of less than 150 and LDL goal of less than 130. Last LDL 160 discussed dietary and lifestyle modification was given information I would reduce cholesterol. Plan to repeat in 2 months. (4) Elevated TSH: Code(s): R79.89 - Other specified abnormal findings of blood chemistry Category: Medical Plan: TSH elevated on last few blood works plan to repeat labs. (5) Elevated serum creatinine: Code(s): R79.89 - Other specified abnormal findings of blood chemistry Category: Medical Plan: Elevated serum creatinine plan to decrease hydrochlorothiazide to 12.5 mg. Patient to continue to monitoring blood pressure at home. Advised to stay well hydrated and repeat labs in 2 months (6) Weight loss: Code(s): R63.4 - Abnormal weight loss Category: Medical Plan: Patient reporting weight loss. He does have a 4 lb weight loss since his last visit with us 6 months ago. His colonoscopy is up-to-date. Plan to obtain updated blood work and chest x-ray for further evaluation. Discussed balanced meals and increasing protein intake (7) Elevated fasting glucose: Code(s): R73.01 - Impaired fasting glucose Category: Medical Plan: Decrease the amount of carbohydrates such as pasta, bread, rice, and potatoes and limit the amount of sweets. Although fruits are generally healthy they should be eaten in moderation as they are still high in sugar. Discussed lifestyle management and plan to repeat blood work. (8) Hypopigmentation: Code(s): L81.9 - Disorder of pigmentation, unspecified Category: Medical Plan: Referral placed to Dermatology. Does not appear to be infectious at this time (9) Allergic rhinitis: Code(s): J30.9 - Allergic rhinitis, unspecified Category: Medical Plan: Referral was placed to power equipment technology instructor at patient request today. Plan The patient will continue to monitor blood pressure at home, especially after reducing the hydrochlorothiazide dosage to half a tablet. If blood pressure readings increase, the dosage may be adjusted back to the full tablet. The patient is advised to maintain adequate hydration to support kidney function, given the diuretic effect of hydrochlorothiazide. Dietary modifications are recommended to manage blood sugar and cholesterol levels, including reducing sugar intake and avoiding high-cholesterol foods. The patient received educational materials to assist with dietary changes. Follow-up blood work is planned in a couple of months to reassess kidney function and thyroid levels. Referrals have been made to dermatology for evaluation of hypopigmentation and to an power equipment technology instructor for further allergy testing and management. This note was constructed using voice recognition software. While every effort has been made to ensure accuracy and consulting engineer, still areas may have been included sometimes these areas may affect the content or meeting of the given symptoms. Total time spent caring for the patient today was 30 minutes. This includes time spent before the visit reviewing the chart, time spent during the visit, and time spent after the visit and documentation. Patient was informed and verbally consented to the use of an ambient scribe for clinic note documentation during this visit. Orders: Orders Free T4 (Free Thyroxine) Today R79.89 - Other specified abnormal findings of blood chemistry, Z00.00 - Encounter for general adult medical examination without abnormal findings Comprehensive Met. Panel Today R79.89 - Other specified abnormal findings of blood chemistry, Z00.00 - Encounter for general adult medical examination without abnormal findings Lipid Panel Today E78.00 - Pure hypercholesterolemia, unspecified Hemoglobin A1c Today R73.01 - Impaired fasting glucose PSA, Ultra Sensitive Today Z00.00 - Encounter for general adult medical examination without abnormal findings UA CC w/rflx Micro + Cult Today R35.89 - Other polyuria TSH reflex Free T4 Today R79.89 - Other specified abnormal findings of blood chemistry, Z00.00 - Encounter for general adult medical examination without abnormal findings XR chest 2V Today R63.4 - Abnormal weight loss Referrals Allergy & Immunology Referral J30.9 - Allergic rhinitis, unspecified Dermatology Referral L81.9 - Disorder of pigmentation, unspecified Medications: Changed From hydrochlorothiazide 25 mg PO DAILY 90 tabs 2RF To hydrochlorothiazide 12.5 mg (1/2 x 25 mg) PO DAILY 90 tabs 2RF Refilled labetalol 100 mg PO BID 180 tabs 1RF hydrochlorothiazide 25 mg PO DAILY 90 tabs 2RF
--- OUTSIDE RECORDS SUMMARY | 2024-12-28 09:13 | XMS_ITS | Clinical Summary ---
Author Organization [facility] Address [address] [place] [address] Phone Care Team Providers Care Film Printer Name Role Phone Chauncey Gunter MD Primary Care Provider [phone] Social History Tobacco Use Types Packs/Day Years [...] Panel) 03/14/2024 Colorectal Cancer Screening: Colonoscopy 03/14/2024 Falls Risk Assessment 03/14/2024 Hepatitis C Screening 03/14/2024 Medicare Annual Wellness Visit 03/14/2024 Social Influencers of Health Screening 03/14/2024 Depression Screening 05/27/2024 COVID-19 Vaccine ( season) 2024 02/07/2024, 03/30/2023, 04/23/2022, Additional history exists Influenza Vaccine (#1) 2025 , 03/30/2023, 04/23/2022, Additional history exists RSV Immunization Adult Patients (1 - 1-dose 75+ series) 10/22/2031 DTaP,Tdap,and Td Vaccines (4 - Td or Tdap) 10/03/2033 10/04/2023, 03/30/2023, 01/24/2017 Zoster Vaccines Completed 07/09/2019, 04/01/2019 HIB Vaccines [...] age to complete this topic Meningococcal B Vaccine Aged Out No l onger eligible based on patient's age to complete this topic RSV Immunization Patients Under 20 months Aged Out No longer eligible based on patient's age to complete this topic Varicella Vaccines Aged Out No longer eligible based on patient's age to complete this topic Insurance MEDICAID - [place] [employer] MEDICARE Member Subscriber Plan / Payer (Ef fective 2023-Present) Name:Najma Watershan Relation to Subscriber:Self Name:Louis Waters Payer ID:[id number] Group ID:[id number] Type:Not on file Address: [address] [place] [phone] Care Teams Film Printer Relationship Specialty Start Date End Date Chauncey Gunter MD [address] [facility] [address] [place] [id number] PCP - General Internal Medicine 04/15/24
--- OUTSIDE RECORDS SUMMARY | 2024-12-28 09:13 | XMS_ITS | Clinical Summary ---
Author Organization [facility] Address [address] [place] [address] Care Team Providers Care Radial Drill Press Set Up Operator Name Role Phone Unavailable Primary Care Provider [...] 05/15/2021, Additional history exists Influenza Vaccine (#1) 2025 , 04/05/2021, 01/28/2019 DTaP/Tdap/Td Vaccines (2 - [...] patient's age to complete this topic [place] [address] [address] [place], [place]
--- OUTSIDE RECORDS SUMMARY | 2024-12-28 09:13 | XMS_ITS | Patient Health Record ---
Author Organization Fausto Felder III, MD Address [address] [place] [address] [place] [id number] Care Team Providers Care Tool And Machine Maintainer Name Role Phone Chauncey Gunter MD Primary Care Provider Fausto Acosta Unavailable [phone] Allergies Allergen (clinical drug ingredient) Drug/Non Drug Allergy documented on EMR Reaction Allergy Type Onset Date Status Ragweed Unknown Allergy Active [place] Unknown Allergy Active Reason For Referral No [...] Problem Status W/U Status Risk Notes Problem 273622787 Overweight (E66.3) Active confirmed His weight is n ow in the normal range and this problem has resolved. Problem 58868026 Hypertension (I10) Active confirmed His blood press ure is well controlled today At 130/84 andno change in his regimen was indicated. Problem [id number] Colonic polyp (K63.5) Active confirmed His polyp was a tubular adenoma and routine five-year colonoscopies are indicated. He and I discussed this and he is aware of the necessity for this and will address this issue with his line service supervisor and primary care physician. Problem [id number] Stage IIA Hodgkin's disease (C81.90) Active confirmed [...] End Date [employer] Medicare [address] [place] [address] [id number] Louis Waters Self - patient is the insured MEDICARE [place]GS [address] [place] [address] [id number] Louis Waters Self - patient is the insured MEDICA[place] [address] [place], [place] [id number] Louis Waters Self - patient is the insured Medical (General) History Medical History History ICD Code hypertension stage II Hodgkin's disease a ge 41 treated with radiation and chemotherapy 1996 2006 tubular adenoma on colonoscopy, las t 2015 hyperplastic and adenomatous colonic errol yps Surgical History Surgery Date(Month/Year) Cataract surgery 12/2021 colonoscopy, one hyperplastic polyp Hiltonrogelio lawrence 2013 colonoscopy,1 tubular adenoma 2007 dental extraction mediastinal node biopsy 1995
[2024-12-28 09:14] VITALS: BP 126/64; PULSE 88; O2SAT 98; BMI 21.6
== END 2024-12-28 10:09 | disposition home or self-care (01) ==
LOC: HO.HMCH 08:54
DX: I10 Essential (primary) hypertension (principal); G40.909 Epilepsy, unspecified, not intractable, without status epilepticus; E78.00 Pure hypercholesterolemia, unspecified; R79.89 Other specified abnormal findings of blood chemistry; R63.4 Abnormal weight loss; R73.01 Impaired fasting glucose; L81.9 Disorder of pigmentation, unspecified; J30.9 Allergic rhinitis, unspecified

== ENCOUNTER → 2024-12-28 08:53 | Outpatient (BNVA) | payer OTHER, SELFPAY | DX: I10 Essential (primary) hypertension (principal); G40.909 Epilepsy, unspecified, not intractable, without status epilepticus; E78.00 Pure hypercholesterolemia, unspecified; R94.6 Abnormal results of thyroid function studies; R79.89 Other specified abnormal findings of blood chemistry; R63.4 Abnormal weight loss; Z68.21 Body mass index [BMI] 21.0-21.9, adult; R73.01 Impaired fasting glucose; L81.9 Disorder of pigmentation, unspecified; J30.9 Allergic rhinitis, unspecified; Z13.39 Encounter for screening examination for other mental health and behavioral disorders; Z13.30 Encounter for screening examination for mental health and behavioral disorders, unspecified | CPT/HCPCS: 96127; 99212 ==

== ENCOUNTER 2025-03-01 08:43 | Outpatient (AMB) | payer OTHER, SELFPAY ==
--- OUTSIDE RECORDS SUMMARY | 2023-11-22 04:30 | XMS_ITS ---
Author Organization [facility] Address [address] [place] [phone] Care Team Providers Care Maintenance Chief Name Role Phone Jani MCCURDY, Chauncey Primary Care Provider Unavaila Bishnu Bella Jr [phone] REASON FOR VISIT screening colon Encounters Encounter Location Date Provider Diagnosis [facility] [place] [address] [place] [id number] 11/22/2023 Bishnu May Jr Encounter for screening colonoscopy Z12.11 and Colon polyps K63.5 Assessments Encounter Date Diagnosis (ICD Code) Assessment Notes Treatment Notes Treatment Clinical Notes Section Notes 11/22/2023 Encounter for screening colonoscopy (ICD-10 - Z12.11) 11/22/2023 Colon polyps (ICD-10 - K63.5) Plan Of Treatment No Information Progress Notes * ANYA TAYLOR ODOB: (69 yo M)Acc No.[id number]:11/22/2023 COLON WITH MAC Patient: ANYA SIEGEL Provider: Shelly May MD :1955 A ge:68 Y S ex:Male Date:11/22/2023 Address:[address] [place], [phone] Pcp:Chauncey Gunter MD Subjective: * Chief Complaints: * 1 . Screening colon. * Medical History: Objective: * Vitals: Assessment: * Assessment: 1. E ncounter for screening colonoscopy - Z12.11 (Primary) 2 . C olon polyps - K63.5 Plan: * Treatment: * Procedure Codes: 4 5385 LESION REMOVAL COLONOSCOPY, 53331 COLONOSCOPY AND BIOPSY, Modifiers: 59 * * The named appointment provid er may or may not be the originator of this progress note, and it is not deemed complete until electronically signed by the appointment provider. Sign off status: Pending * Provider: Shelly May MD Date: 0 11/22/2023 Generated for Moisés rojas/Christa/Fabiitting on: 1 09:29 AM EDT
--- OUTSIDE RECORDS SUMMARY | 2024-06-01 06:00 | XMS_ITS ---
Author Organization Fausto Felder III, MD Address [address] [place] [address] [place] [address] Care Team Providers Care Methods Analyst Name Role Phone Chauncey Gunter MD Primary Care Provider Dr. Fausto Acosta III Unavailable Allergies Allergen (clinical drug ingredient) Drug/Non Drug Allergy documented on EMR Reaction Allergy Type Onset Date Status Ragweed Unknown Allergy Active [place]wyn[place] Gwynn Unknown Allergy Active REASON FOR VISIT Follow [...] Date Provider Diagnosis Fausto Felder III, MD [address] [place] [address] [place] [address] 06/01/2024 Fausto Felder Stage IIA Hodgkin's disease [...] * José Miguel TAYLOROB:1955 (69 yo M)Acc No.[id number]:06/01/2024 Progress Notes Patient: Louis SIEGEL Provider: Mayur Felder MD :1955 A ge:68 Y S ex:Male Date:06/01/2024 Address:[address] [place] [address], [address], [place], [id number] Pcp:Chauncey Gunter MD Subjective: * Chief Complaints: [...] with no children. 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 * Social History: T obacco Use: T obacco Use/Smoking P atient is a n onsmoker A dditional Findings: Tobacco Non-User A ggressive non-smoker H e was born [place], [place]. 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 * Medications: T aking Adult Aspirin EC Low Strength 81 MG Tablet Delayed Release 1 tablet Orally Once a day , Taking Labetalol HCl 200 MG Tablet 1 tablet Orally Twice a day , Taking hydroCHLOROthiazide 25 MG Tablet TAKE 1 TABLET BY MOUTH EVERY DAY Oral , Medication List reviewed and reconciled with the patient * Allergies: R agweed, Gwynn: Allergy. Objective: * Vitals: * Examination: G [...] 0 06/01/2024 Generated for Moisés rojas/Christa/eTransmitting on: 09:29 AM EDT History and Physical Notes * [...]
--- NOTE | 2025-03-01 08:47 | A.OFFPC_ITS ---
Vital Signs 03/01/25 08:48 Height 5 ft 10 in Weight 151 lb 2 oz BMI 21.7 BP 110/64 Blood Pressure Location Lt brachial Position Sitting Pulse 85 Pulse Source Pulse Oximeter Temp 97.1 F Temp Source Temporal Artery Scan Pulse Oximetry (%) 99 Oxygen Delivery Method Room Air Intake Visit Reasons: f/u blood work Allergies corn Allergy (Unknown, Verified 03/01/25 09:09) Unknown ragweed pollen Allergy (Unknown, Verified 03/01/25 09:09) Unknown Medication List - Last Reconciled 03/01/25 by Charmaine Mcneill PA-C hydrochlorothiazide 12.5 mg (1/2 x 25 mg) PO DAILY labetalol 100 mg PO BID levetiracetam 250 mg PO Q12H 90 days Tobacco use date assessed: 03/01/25 Fall risk assessment: No Falls in past year Last assessed Fall Risk: 03/01/25 Dental Screening Dental Screen Date: 03/01/25 Did you have a dental visit in the last 12 months?: No Did you have a dental problem in the last 6 months where you did not have access to dental care?: No Was dental information given to patient?: Patient has dentist HPI f/u blood work HPI Details Presenting with hypertension management and kidney function monitoring. Blood pressure readings at home are consistently around 120/80 mmHg, with reduced hydrochlorothiazide dosage maintaining control. Dehydration Resulting from hydrochlorothiazide use, dehydration has been managed by increasing water intake to approximately one quart daily. Awaiting re-eval pending blood work. The patient's weight is stable at 151 pounds, with previous concerns about weight loss addressed. [facility] Medical History Tubular adenoma Hx of radiation therapy History of chemotherapy Hodgkins disease Syncope High blood pressure Surgical History Hx of surgical procedure H/O colonoscopy H/O rectal polypectomy Family History Father Multiple sclerosis Mother Breast cancer Social History Housing: House Alcohol intake: current Alcohol intake frequency: a few times a week Patient Tobacco Use Status: Never used Tobacco Tobacco use type: Cigarette e-Cigarette/Vaping Use: Never Used Second Hand Smoke Exposure: No Substance Use Type: Marijuana service: No Current occupational status: unemployed Cognitive needs: No Hearing needs: No Vision needs: Yes (Glasses) Questionnaire PHQ-9 Over the last 2 weeks, how often have you been bothered by any of the following problems? 1. Little interest or pleasure in doing things: not at all 2. Feeling down, depressed, or hopeless: not at all 3. Trouble falling or staying asleep, or sleeping too much: not at all 4. Feeling tired or having little energy: not at all 5. Poor appetite or overeating: not at all 6. Feeling bad about yourself - or that you are a failure or have let yourself or your family down: not at all 7. Trouble concentrating on things, such as reading the newspaper or watching television: not at all 8. Moving or speaking so slowly that other people could have noticed. Or the opposite - being so fidgety or restless that you have been moving around a lot more than usual: not at all 9. Thoughts that you would be better off or of hurting yourself in some way: not at all Total score: 0 Source: Developed by Drs. Fausto Bailey, Stefania Tiwari, Donald Ross and colleagues, with an educational durga from [employer]. Thrive Questionnaire Date Thrive assessed: 12/28/24 I am a: Patient What is your living situation today?: I have a steady place to live Within the past 12 months, did the food you bought not last and you didn't have the money to get more?: Never true Within the past 12 months, did you worry whether your food would run out before you got money to buy more?: Never true Do you have trouble paying for medicines?: No Do you have trouble getting transportation to medical appointments?: No Do you have trouble paying your heating and electricity bill?: No Do you have trouble taking care of your child, family member or friend?: I choose not to answer this question Do you have trouble with day-to-day activities such as bathing, preparing meals, shopping, managing finances, etc.?: No Are you currently unemployed and looking for a job?: No Are you interested in more education?: No Please select the resources that you would like help with: None Currently or been in a relationship where the following occur: No concerns reported THRIVE Score: 0 AUDIT C Alcohol Use Questionnaire (AUDIT-C) 1. How often do you have a drink containing alcohol?: 2-4 times a month 2. How many drinks containing alcohol do you have on a typical day when you are drinking?: 1 or 2 3. How often do you have six or more drinks on one occasion?: Never Total Score: 2 JOYCE-7 AMB Questionnaire JOYCE-7 Date JOYCE - 7 assessed: 12/28/24 Feeling nervous, anxious, or on edge: 0 = Not at all Not being able to stop or control worryin = Not at all Worrying too much about different things: 0 = Not at all Trouble relaxin = Not at all Being so restless that it is hard to sit still: 0 = Not at all Becoming easily annoyed or irritable: 0 = Not at all Feeling afraid as if something awful might happen: 0 = Not at all Total JOYCE-7 score (0-4 normal; 5-9 mild; 10-14 moderate; 15-21 severe): 0 Source: Developed by Drs. Fausto Bailey, Stefania Tiwari, Donald Ross and colleagues, with an educational durga from [employer]. Review of Systems Const Denies body aches, Denies chills, Denies fever(s), Denies headache(s) and Denies poor appetite Eyes Reports no additional complaints ENT Denies dizziness and Denies headache(s) Card Denies chest pain, Denies edema, Denies lightheadedness and Denies dyspnea Resp Denies dyspnea GI Denies diarrhea, Denies nausea and Denies vomiting Reports no additional complaints Musc Reports no additional complaints and Denies abnormal gait Skin/Breast Reports system reviewed and no additional complaints, except as documented Neuro Denies abnormal gait, Denies dizziness and Denies headache(s) Psych Reports no additional complaints Physical exam (Primary Care) Vital Signs: Last Vital Signs Temp 97.1 F 03/01/25 08:48 Pulse 85 03/01/25 08:48 BP 110/64 03/01/25 08:48 Pulse Ox 99 03/01/25 08:48 Oxygen Delivery Method Room Air 03/01/25 08:48 BMI result Body Mass Index 21.7 Tobacco/Smoking Status: Tobacco use Status Tobacco use date assessed 03/01/25 03/01/25 08:51 Patient Tobacco Use Status Never used Tobacco 03/01/25 08:51 Tobacco use type Cigarette 03/01/25 08:51 e-Cigarette/Vaping Use Never Used 03/01/25 08:51 PHQ-9: PHQ-9 Score PHQ-9: Total score 0 03/01/25 08:51 Thrive Assessment: Date of Thrive Assessment Date Thrive assessed 12/28/24 03/01/25 08:51 Currently or been in a relationship where the following occur: No concerns reported Const General: cooperative, healthy appearing, comfortable and no acute distress Orientation/consciousness: patient oriented x3 HENMT Head: Yes normocephalic Ears: hearing grossly normal bilaterally General nose exam: Normal external nose present Eyes General: appearance normal, both eyes and all related structures Conjunctivae: conjunctivae normal Neck Neck: Yes full ROM and Yes no lymphadenopathy Resp Effort & Inspection: normal respiratory effort Auscultation: clear to auscultation bilaterally, no crackles, no rales, no rhonchi and no wheezes Cardio Rate: regular rate Rhythm: regular rhythm Skin General skin exam: no rashes or lesions noted Neuro General: patient oriented x3 Gait exam (Neuro): Normal gait present Extrem General: Yes normal to inspection, Yes full ROM and No edema Psych Affect: normal affect Attitude: cooperative Insight: Good insight present (Psych) Judgement: Good judgement present (Psych) Coding Level of Care Code Est Pt Level 3 (70855) Diagnoses Hypertension I10 Hypercholesterolemia E78.00 Elevated serum creatinine R79.89 Elevated fasting glucose R73.01 Assessment & Plan Assessment & Plan (1) Hypertension: Code(s): I10 - Essential (primary) hypertension Category: Medical Plan: At last visit HCTZ was decreased to 12.5mg and blood pressures at home as well as in the office have remained normal. Continue on current blood pressure medication. Avoid salt intake and encourage healthy diet and regular exercise. (2) Hypercholesterolemia: Code(s): E78.00 - Pure hypercholesterolemia, unspecified Category: Medical Plan: Avoid foods that are high in cholesterol such as red meat, fried foods, eggs and baked goods. Triglyceride goal of less than 150 and LDL goal of less than 130. Last LDL 160 discussed dietary and lifestyle modification was given information I would reduce cholesterol. Reminded about blood work. (3) Elevated serum creatinine: Code(s): R79.89 - Other specified abnormal findings of blood chemistry Category: Medical Plan: Reminded patient about blood work. (4) Elevated fasting glucose: Code(s): R73.01 - Impaired fasting glucose Category: Medical Plan: Decrease the amount of carbohydrates such as pasta, bread, rice, and potatoes and limit the amount of sweets. Although fruits are generally healthy they should be eaten in moderation as they are still high in sugar. Discussed lifestyle management and reminded about blood work. Plan During the visit, we discussed the management of hypertension, emphasizing the importance of maintaining current medication regimens and regular blood pressure monitoring. We also addressed the need for increased hydration to prevent dehydration due to hydrochlorothiazide use. The patient was informed about the effectiveness of the topical cream for the fungal infection and advised to continue its use. We planned for follow-up blood work to monitor kidney function and discussed the importance of maintaining stable weight. Follow-up appointments with dermatology and other specialists were confirmed. This note was constructed using voice recognition software. While every effort has been made to ensure accuracy and contact lens assistant, still areas may have been included sometimes these areas may affect the content or meeting of the given symptoms. Total time spent caring for the patient today was 30 minutes. This includes time spent before the visit reviewing the chart, time spent during the visit, and time spent after the visit and documentation. Patient was informed and verbally consented to the use of an ambient scribe for clinic note documentation during this visit.
[2025-03-01 08:48] VITALS: BP 110/64; PULSE 85; TEMP 36.2; O2SAT 99; BMI 21.7
--- OUTSIDE RECORDS SUMMARY | 2025-03-01 09:29 | XMS_ITS | Clinical Summary ---
Author Organization [employer] Address [address] [facility] 7[address] [place] [address] Care Team Providers Care Solution Analyst Name Role Phone Unavailable Primary Care Provider [...] - PCV) 2006 COVID-19 Vaccine ( season) 2025 04/23/2022, 09/08/2021, 05/15/2021, Additional history exists Influenza Vaccine (#1) 2025 2, 04/05/2021, 01/28/2019 DTaP/Tdap/Td Vaccines (2 - Td [...] patient's age to complete this topic [place] [address] [place] [address] [place]AND[place], [place], [place]
--- OUTSIDE RECORDS SUMMARY | 2025-03-01 09:29 | XMS_ITS | Patient Health Record ---
Author Organization Fausto Felder III, MD Address [address] [place] [address] [place] [address] Care Team Providers Care Compositor Apprentice Name Role Phone Chauncey Gunter MD Primary Care Provider Dr. Fausto Acosta III Unavailable Allergies Allergen (clinical drug ingredient) Drug/Non Drug Allergy documented on EMR Reaction Allergy Type Onset Date Status Ragweed Unknown Allergy Active Amber Amber Unknown Allergy Active Reason For Referral No [...] Problem Status W/U Status Risk Notes Problem 980796188 Overweight (E66.3) Active confirmed His weight is n ow in the normal range and this problem has resolved. Problem 57011417 Hypertension (I10) Active confirmed His blood press ure is well controlled today At 130/84 andno change in his regimen was indicated. Problem 48834348 Colonic polyp (K63.5) Active confirmed His polyp was a tubular adenoma and routine five-year colonoscopies are indicated. 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 Problem 872472333 Stage IIA Hodgkin's disease (C81.90) Active confirmed [...] End Date [employer] Medicare [address] [place] [address] [id number] Louis [place] Self - patient is the insured MEDICARE NGS [address] [place] [address] [id number] Louis [place] Self - patient is the insured MEDICAID [place] [address] [place], [place] [id number] [phone] [id number] Louis Waters Self - patient is the [...]
--- OUTSIDE RECORDS SUMMARY | 2025-03-01 09:30 | XMS_ITS | Clinical Summary ---
Author Organization [facility] Address [address] [place] [address] Phone Care Team Providers Care Hairpiece Stylist Name Role Phone Chauncey Gunter MD Primary Care Provider [phone] Social History Tobacco Use Types Packs/Day Years Used Date Smoking Tobacco: Never Assessed Sex and Gender Information Value Date Recorded Sex Assigned at Not on file Legal Sex Male 3:42 PM EDT Gender Identity Not on file Sexual Orientation Not on file Plan of Treatment Health Maintenance Due Date Last Done Comments Colorectal Cancer Screening: Colonoscopy 1955 Pneumococcal Vaccine: 50+ Years (1 of 1 - PCV) 2006 Abdominal Aortic Aneurysm (AAA) Screen 03/14/2024 Cholesterol Screening (Lipid Panel) 03/14/2024 Falls Risk Assessment 03/14/2024 Hepatitis C Screening 03/14/2024 Medicare Annual Wellness Visit 03/14/2024 Social Influencers of Health Screening 03/14/2024 Depression Screening 05/27/2024 COVID-19 Vaccine ( season) 2025 02/07/2024, 03/30/2023, 04/23/2022, Additional history exists Influenza [...] Group ID:SCO Type:Not on file Address: [address] [place] [id number] Care Teams Hairpiece Stylist Relationship Specialty Start Date End Date Chauncey Gunter MD [address] [facility] [address] [place] [id number] PCP - General Internal Medicine 04/15/24
--- OUTSIDE RECORDS SUMMARY | 2025-03-01 09:30 | XMS_ITS | Patient Health Record ---
Author Organization [facility] Address [address] [place] [address] Care Team Providers Care Measurer Name Role Phone Chauncey Gunter MD Primary Care Provider Bishnu Dorman Jr Unavailable Allergies No Known Allergies Reason For Referral No Information Medications Medication SIG (Take, Route, Frequency, Duration) Notes Start Date End Date Status Labetalol HCl 200mg Active hydroCHLOROthiazide 25mg Active Aspir-81 81mg Active Problems Problem Type SNOMED Code ICD Code Onset Dates Problem Status W/U Status Risk Notes Problem 489676289 Colon cancer screening (Z12.11) Active confirmed Problem 583665194 Long-term use of aspirin therapy (Z79.82) Active confirmed Problem 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.899) Active confirmed Plan Of Treatment Future Test Test Name Order Date COLONOSCOPY 03/04/2013 Insurance Providers Payer Name Payer Address Payer Phone Subscriber Number Group Number Insured Name Patient Relationship to Insured Coverage Start Date Coverage End Date [facility] [address] [place], [place] [id number] ANYA TAYLOR Self - patient is the insured MEDICAID OF [employer] [address] [place] [address] [phone] [id number] ANYA TAYLOR Self - patient is the insured Medical (General) History Medical History History ICD Code Hypertension Hodgkin's disease stage II a 1995 status post XRT and chemotherapy Colon polyps, history of tub ular adenoma, last colonoscopy 2013, ten-year followup Surgical History Surgery Date(Month/Year) Mediastinoscopy 1995
== END 2025-03-01 09:25 | disposition home or self-care (01) ==
LOC: HO.HMCH 08:44
DX: I10 Essential (primary) hypertension (principal); E78.00 Pure hypercholesterolemia, unspecified; R79.89 Other specified abnormal findings of blood chemistry; R73.01 Impaired fasting glucose

== ENCOUNTER → 2025-03-01 08:43 | Outpatient (BNVA) | payer OTHER, SELFPAY | DX: I10 Essential (primary) hypertension (principal); E78.00 Pure hypercholesterolemia, unspecified; R79.89 Other specified abnormal findings of blood chemistry; R73.01 Impaired fasting glucose | CPT/HCPCS: 96127; 99212 ==

== ENCOUNTER 2025-03-26 09:36 | Outpatient (REF) | payer OTHER, SELFPAY ==
--- OUTSIDE RECORDS SUMMARY | 2023-11-22 04:30 | XMS_ITS ---
Author Organization [facility] Address [address] [place] [address] Care Team Providers Care Or Manager Name Role Phone Jani MCCURDY, Chauncey Primary Care Provider Unavaila Bishnu Bella Jr REASON FOR VISIT screening colon Encounters Encounter Location Date Provider Diagnosis [facility] [place] Out[place] [address] [place] [id number] 11/22/2023 Bishnu May Jr Encounter for screening colonoscopy Z12.11 and Colon polyps K63.5 Assessments Encounter Date Diagnosis (ICD Code) Assessment Notes Treatment Notes Treatment Clinical Notes Section Notes 11/22/2023 Encounter for screening colonoscopy (ICD-10 - Z12.11) 11/22/2023 Colon polyps (ICD-10 - K63.5) Plan Of Treatment No Information Progress Notes * ANYA TAYLOR ODOB: (69 yo M)Acc No.[id number]:11/22/2023 COLON WITH MAC Patient: ANYA SIEGEL Provider: Shelly May MD :1955 A ge:68 Y S ex:Male Date:11/22/2023 Address:[address] [place] [address] Pcp:Chauncey Gunter MD Subjective: * Chief Complaints: * 1 . Screening colon. * Medical History: Objective: * Vitals: Assessment: * Assessment: 1. E ncounter for screening colonoscopy - Z12.11 (Primary) 2 . C olon polyps - K63.5 Plan: * Treatment: * Procedure Codes: 4 5385 LESION REMOVAL COLONOSCOPY, 62669 COLONOSCOPY AND BIOPSY, Modifiers: 59 * * The named appointment provid er may or may not be the originator of this progress note, and it is not deemed complete until electronically signed by the appointment provider. Sign off status: Pending * Provider: Shelly May MD Date: 0 11/22/2023 Generated for Moisés rojas/Christa/Fabiitting on: 1 10:44 AM EDT
--- OUTSIDE RECORDS SUMMARY | 2024-06-01 06:00 | XMS_ITS ---
Author Organization Fausto Felder III, MD Address [address] [place] [address] [place] [address] Care Team Providers Care World History Teacher Name Role Phone Chauncey Gunter MD Primary Care Provider Dr. Fausto Acosta III Unavailable Allergies Allergen (clinical drug ingredient) Drug/Non Drug Allergy documented on EMR Reaction Allergy Type Onset Date Status Ragweed Unknown Allergy Active [place] Unknown Allergy Active REASON FOR VISIT Follow [...] Date Provider Diagnosis Fausto Felder III, MD [address] [place] [address] [place] [address] 06/01/2024 Fausto Felder Stage IIA Hodgkin's disease [...] * José Miguel TAYLOROB:1955 (69 yo M)Acc No.[id number]:06/01/2024 Progress Notes Patient: Louis SIEGEL Provider: Mayur Felder MD :1955 A ge:68 Y S ex:Male Date:06/01/2024 Address:[address] [place] [address], [address], [place], [id number] Pcp:Chauncey Gunter MD Subjective: * Chief Complaints: [...] with no children. 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 * Social History: T obacco Use: T obacco Use/Smoking P atient is a n onsmoker A dditional Findings: Tobacco Non-User A ggressive non-smoker H e was born [place], [place]. 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 * Medications: T aking Adult Aspirin EC Low Strength 81 MG Tablet Delayed Release 1 tablet Orally Once a day , Taking Labetalol HCl 200 MG Tablet 1 tablet Orally Twice a day , Taking hydroCHLOROthiazide 25 MG Tablet TAKE 1 TABLET BY MOUTH EVERY DAY Oral , Medication List reviewed and reconciled with the patient * Allergies: R agweed, [place]: Allergy. Objective: * Vitals: * Examination: G [...] 0 06/01/2024 Generated for Moisés rojas/Christa/eTransmitting on: 10:44 AM EDT History and Physical Notes * HPI (History [...]
--- NOTE | ~2025-03-26 | XR_ITS ---
EXAMINATION: XR CHEST CLINICAL INFORMATION: R63.4 - Abnormal weight loss COMPARISON: January 15, 2019 TECHNIQUE: PA and lateral views FINDINGS: No consolidation, pleural effusion or pneumothorax. Cardiomediastinal silhouette size is normal. S-shaped curvature of the thoracolumbar spine. XR/XR chest 2V IMPRESSION: No acute airspace disease. Mild scoliosis. Electronically signed by: Rafy Stevenson MD 03/26/2025 10:26 AM EDT
--- OUTSIDE RECORDS SUMMARY | 2025-03-26 10:44 | XMS_ITS | Patient Health Record ---
Author Organization Fausto Felder III, MD Address [address] [place] [address] [place] [address] Care Team Providers Care Corporate Development Officer Name Role Phone Chauncey Gunter MD Primary Care Provider Dr. Fausto Acosta III Unavailable Allergies Allergen (clinical drug ingredient) Drug/Non Drug Allergy documented on EMR Reaction Allergy Type Onset Date Status Ragweed Unknown Allergy Active Hornell Hornell Unknown Allergy Active Reason For Referral No [...] Problem Status W/U Status Risk Notes Problem 995909386 Overweight (E66.3) Active confirmed His weight is n ow in the normal range and this problem has resolved. Problem 84197246 Hypertension (I10) Active confirmed His blood press ure is well controlled today At 130/84 andno change in his regimen was indicated. Problem 11157917 Colonic polyp (K63.5) Active confirmed His polyp was a tubular adenoma and routine five-year colonoscopies are indicated. 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 Problem 306653776 Stage IIA Hodgkin's disease (C81.90) Active confirmed [...] End Date [employer] Medicare [address] [place] [address] [id number] Louis Waters Self - patient is the insured MEDICARE NGS [address] [place] [address] [id number] Louis Waters Self - patient is the insured MEDICAID [place] [address] [place], [place] [id number] [phone] [id number] Louis Waters Self - patient is the [...]
--- OUTSIDE RECORDS SUMMARY | 2025-03-26 10:44 | XMS_ITS | Clinical Summary ---
Author Organization [facility] Address [address] [place] [address] Phone Care Team Providers Care Sociology Teacher Name Role Phone Chauncey Gunter MD Primary Care Provider [phone] Social History Tobacco Use Types Packs/Day Years [...] Group ID:SCO Type:Not on file Address: [address] [place] [id number] Care Teams Sociology Teacher Relationship Specialty Start Date End Date Chauncey Gunter MD [address] [facility] [address] [place] [id number] PCP - General Internal Medicine 04/15/24
--- OUTSIDE RECORDS SUMMARY | 2025-03-26 10:44 | XMS_ITS | Clinical Summary ---
Author Organization [email or web address] Address [address] [facility] 7t [place] [address] Care Team Providers Care Peripheral Equipment Operator Name Role Phone Unavailable Primary Care [...] patient's age to complete this topic [place] [address] STAND[place], [place], [place]
--- OUTSIDE RECORDS SUMMARY | 2025-03-26 10:44 | XMS_ITS | Patient Health Record ---
Author Organization [facility] Address [address] [place] [address] Care Team Providers Care Fuel Testing Technician Name Role Phone Chauncey Gunter MD Primary Care Provider Bishnu Dorman Jr Unavailable [phone] Allergies No Known Allergies Reason For Referral No Information Medications Medication SIG (Take, Route, Frequency, Duration) Notes Start Date End Date Status Labetalol HCl 200mg Active hydroCHLOROthiazide 25mg Active Aspir-81 81mg Active Problems Problem Type SNOMED Code ICD Code Onset Dates Problem Status W/U Status Risk Notes Problem Colon cancer screening (723581362) Colon cancer screening (Z12.11) Active confirmed Problem Long-term current use of antiplatelet drug (502359226506349) Long-term use of aspirin therapy (Z79.82) Active confirmed Problem Long-term current use of drug therapy (748164994) care home current use of diuretic (Z79.899) Active confirmed Plan Of Treatment Future Test Test Name Order Date COLONOSCOPY 03/04/2013 Insurance Providers Payer Name Payer Address Payer Phone Subscriber Number Group Number Insured Name Patient Relationship to Insured Coverage Start Date Coverage End Date [facility] [address] [place], [place] [id number] ANYA TAYLOR Self - patient is the insured MEDICAID OF [email or web address] [address] [place] [address] [phone] [id number] ANYA TAYLOR Self - patient is the insured Medical (General) History Medical History History ICD Code Hypertension Hodgkin's disease stage II a 1996 status post XRT and chemotherapy Colon polyps, history of tub ular adenoma, last colonoscopy 2013, ten-year followup Surgical History Surgery Date(Month/Year) Mediastinoscopy 1995
[2025-03-26 11:33] LABS: Alanine Aminotransferase 12 U/L (0-40); Albumin Level 4.7 g/dL (3.5-5.0); Alkaline Phosphatase 41 U/L (39-117); Anion Gap 13 (12-20); Aspartate Amino Transferase 24 U/L (5-37); Blood Urea Nitrogen 19 mg/dL (9-16); Calcium 9.6 mg/dL (8.4-10.2); Carbon Dioxide 27 mmol/L (22-29); Chloride 103 mmol/L (96-108); Cholesterol 265 mg/dL (<200); Estimated Glomerular Filt Rate 46; HDL Cholesterol 66 mg/dL (>40); Potassium 3.7 mmol/L (3.3-5.1); Sodium 139 mmol/L (135-145); Total Protein 7.3 g/dL (6.5-8.0); Triglycerides 69 mg/dL (<150)
[2025-03-26 11:42] LABS: Free T4 (Free Thyroxine) 0.79 ng/dL (0.71-1.85)
[2025-03-26 11:56] LABS: Appearance Urine Clear; Glucose Urine UA Negative (Negative); PH 6.0 (5.0-9.0); Specific Gravity - Urine 1.015 (1.005-1.025); UMIC TRIGGER UACC YES
[2025-03-26 11:59] LABS: UACC Culture Trigger YES
[2025-04-02 21:09] LABS: PSA, Ultra Sensitive 7.47 ng/mL
== END 2025-03-26 09:37 | disposition home or self-care (01) ==
LOC: HO.LAB 09:36
DX: Z00.00 Encounter for general adult medical examination without abnormal findings (principal); E78.00 Pure hypercholesterolemia, unspecified; R73.01 Impaired fasting glucose; R79.89 Other specified abnormal findings of blood chemistry; R63.4 Abnormal weight loss; Z12.5 Encounter for screening for malignant neoplasm of prostate; R35.89 Other polyuria
CPT/HCPCS: 36415; 71046; 80053; 80061; 81001; 83036; 84153; 84439; 84443; 87086

== ENCOUNTER → 2025-03-26 10:07 | Outpatient (BNV) | payer OTHER, SELFPAY | PROVIDERS: Visit Provider Radiology Diagnostic Radiology | DX: R63.4 Abnormal weight loss (principal) | CPT/HCPCS: 71046 ==

== ENCOUNTER 2025-04-19 13:47 | Outpatient (REF) | payer OTHER, SELFPAY ==
--- OUTSIDE RECORDS SUMMARY | 2025-04-19 19:12 | XMS_ITS | Clinical Summary ---
Author Organization [employer] Address [address] [facility] [address] [place] [address] Care Team Providers Care Air Force Pilot Name Role Phone Unavailable Primary Care Provider [...] patient's age to complete this topic Insurance [place] [address] STAND[place], [place], [place]
== END 2025-04-19 13:48 | disposition home or self-care (01) ==
LOC: HO.LAB 13:47
PROVIDERS: Visit Provider Internal Medicine Hypertension Specialist
DX: I12.9 Hypertensive chronic kidney disease with stage 1 through stage 4 chronic kidney disease, or unspecified chronic kidney disease (principal); N18.30 Chronic kidney disease, stage 3 unspecified; Z79.899 Other long term (current) drug therapy
CPT/HCPCS: 99202

== ENCOUNTER 2025-04-19 13:47 | Outpatient (AMB) | payer OTHER, SELFPAY ==
[2025-04-19 13:48] VITALS: BP 170/82; BMI 21.7
--- NOTE | 2025-04-19 13:48 | HO.NEPHOV ---
Vital Signs 04/19/25 13:48 04/19/25 14:02 Height 5 ft 10 in Weight 151 lb BMI 21.7 BP 170/82 H 130/80 Blood Pressure Location Lt brachial Lt brachial Position Sitting Sitting Intake Visit Reasons: INP : Chronic Kidney disease Public Affairs Officer Required: No Accompanied by: Self / Same As Patient Allergies corn Allergy (Unknown, Verified 04/19/25 13:51) Unknown ragweed pollen Allergy (Unknown, Verified 04/19/25 13:51) Unknown Medication List - Last Reconciled 04/19/25 by Yuan Duffy MD atorvastatin (Lipitor) 10 mg PO BEDTIME hydrochlorothiazide 12.5 mg (1/2 x 25 mg) PO DAILY ketoconazole 2% appl topical DAILY labetalol 100 mg PO BID levetiracetam 250 mg PO BID levothyroxine (Levoxyl) 25 mcg PO DAILY HPI Comments Details: The patient is a 69 year old individual presenting for a nephrology consultation for evaluation of chronic kidney disease. 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 Recent lab results from February showed kidney function at 46%, which is slightly lower than the 49% recorded in 2021. The patient reports urinating approximately every three hours during the day and waking up once around 3 a.m. to urinate. The patient has a history of hypertension for the last 6-7 years, with typical blood pressure readings between 120-130 systolic. The patient takes labetalol and hydrochlorothiazide for blood pressure management, and the dose of hydrochlorothiazide was recently halved by the primary care physician due to concerns for kidney effects. Past medical history is significant for Stage 2 Hodgkin's lymphoma in 1997, treated with six months of chemotherapy and three months of radiation, and is currently in remission. The patient also has hypothyroidism and a known allergy to clonazepam. The patient reports pain under the right rib cage for a number of years and denies any previous surgeries. 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 The patient does not smoke tobacco but does use cannabis and drinks alcohol (beer or gin) occasionally. The patient's main form of exercise is riding a bicycle. [facility] Medical History Tubular adenoma Hx of radiation therapy History of chemotherapy Hodgkins disease Syncope High blood pressure Surgical History Hx of surgical procedure H/O colonoscopy H/O rectal polypectomy Family History Father Multiple sclerosis Mother Breast cancer Social History Housing: House Alcohol intake: current Alcohol intake frequency: a few times a week Patient Tobacco Use Status: Never used Tobacco Tobacco use type: Cigarette e-Cigarette/Vaping Use: Never Used Second Hand Smoke Exposure: No Substance Use Type: Marijuana service: No Current occupational status: unemployed Cognitive needs: No Hearing needs: No Vision needs: Yes (Glasses) Review of Systems Const Denies fever(s) and Denies weight loss Card Denies chest pain Resp Denies cough and Denies hemoptysis GI Denies abdominal pain, Denies diarrhea and Denies nausea Musc Denies back pain Neuro Denies focal weakness Physical Exam Vital Signs: Last Vital Signs BP 130/80 04/19/25 14:02 BMI result Body Mass Index 21.7 Comfortable Neck supple no JVD. Lungs entry equal no rales. Heart S1-S2 heard no gallop or rub. Abdomen soft nontender. Neuro alert awake oriented. No asterixis. Extremities no edema. Results Reviewed Nephrology Results: Hgb, (14.0-18.0) 14.7 g/dl 07/24/24 WBC, (4.8-10.8) 6.4 X10*3/uL 07/24/24 Plt Count, (160-400) 172 X10*3/uL 07/24/24 Sodium, (135-145) 139 mmol/L 03/26/25 Potassium, (3.3-5.1) 3.7 mmol/L 03/26/25 Chloride, (96-108) 103 mmol/L 03/26/25 Carbon Dioxide, (22-29) 27 mmol/L 03/26/25 BUN, (9-16) 19 mg/dL H 03/26/25 Creatinine, (0.5-1.4) 1.51 mg/dL H 03/26/25 Calcium, (8.4-10.2) 9.6 mg/dL 03/26/25 Urine Protein, (Neg-Trace) Negative mg/dL 03/26/25 Assessment & Plan Assessment & Plan (1) Hypertension: Code(s): I10 - Essential (primary) hypertension Category: Medical (2) Chronic kidney disease (CKD): Code(s): N18.9 - Chronic kidney disease, unspecified Category: Medical Plan Chronic kidney disease stage 3 Most likely due to underlying hypertensive nephrosclerosis. Other possibilities including obstructive uropathy should be ruled out. Recent urine studies were benign therefore glomerular nephritis or interstitial disease seem unlikely. Hypertension Blood pressure well controlled. Initiated workup for CKD including a 24 hour urine collection for creatinine clearance and a renal ultrasonogram. Further workup will be based on the outcome of the above investigations. Encouraged him to stay on a low-sodium diet Continue to avoid nephrotoxic agents. Maintain blood pressure less than 130/80. Returned to the office in the next few weeks. Orders: Orders Basic Metabolic Panel Today Yuan Duffy MD I10 - Essential (primary) hypertension, N18.9 - Chronic kidney disease, unspecified Total Protein Urine Random Today Yuan Duffy MD I10 - Essential (primary) hypertension, N18.9 - Chronic kidney disease, unspecified Creatinine Urine Today Yuan Duffy MD I10 - Essential (primary) hypertension, N18.9 - Chronic kidney disease, unspecified Creatinine, 24 Hr Group Today Yuan Duffy MD I10 - Essential (primary) hypertension, N18.9 - Chronic kidney disease, unspecified US renal BI Today Yuan Duffy MD N18.9 - Chronic kidney disease, unspecified Medications: Changed From levetiracetam 250 mg PO Q12H 90 days 180 tabs 1RF To levetiracetam 250 mg PO BID Abi Wadsworth CNP Coding Level of Care Code New Pt Level 4 (80539) Diagnoses Hypertension I10 Chronic kidney disease (CKD) N18.9
[2025-04-19 14:02] VITALS: BP 130/80
--- OUTSIDE RECORDS SUMMARY | 2025-04-19 18:37 | XMS_ITS | Clinical Summary ---
Author Organization [facility] Address [address] [place] [address] Phone Care Team Providers Care Fitter / Welder Name Role Phone Chauncey Gunter MD Primary Care Provider Social History Tobacco Use Types Packs/Day Years [...] Group ID:SCO Type:Not on file Address: [address] [place] [phone] Care Teams Fitter / Welder Relationship Specialty Start Date End Date Chauncey Gunter MD [address] [facility] [address] [place] [id number] PCP - General Internal Medicine 04/15/24
== END 2025-04-19 14:09 | disposition home or self-care (01) ==
LOC: HO.HKA 13:47
PROVIDERS: Visit Provider Internal Medicine Hypertension Specialist
DX: I12.9 Hypertensive chronic kidney disease with stage 1 through stage 4 chronic kidney disease, or unspecified chronic kidney disease (principal); N18.9 Chronic kidney disease, unspecified
CPT/HCPCS: 99204

== ENCOUNTER 2025-04-21 10:11 | Outpatient (REF) | payer OTHER, SELFPAY ==
[2025-04-21 11:20] LABS: Creatinine, mg/dL 227.58
[2025-04-21 11:55] LABS: Total Volume 24 Hour Urine 475 mL
--- OUTSIDE RECORDS SUMMARY | 2025-04-21 11:55 | XMS_ITS | Clinical Summary ---
Author Organization [employer] Address [address] [facility] [address] [place] [address] Care Team Providers Care Mastercam Programmer Name Role Phone Unavailable Primary Care Provider [...] patient's age to complete this topic [place] [address] [place]
--- OUTSIDE RECORDS SUMMARY | 2025-04-21 11:55 | XMS_ITS | Clinical Summary ---
Author Organization [facility] Address [address] [place] [address] Phone Care Team Providers Care Media Analyst Name Role Phone Chauncey Gunter MD Primary Care Provider [phone] Social History Tobacco Use Types Packs/Day Years [...] Group ID:SCO Type:Not on file Address: [address] [place] [phone] Care Teams Media Analyst Relationship Specialty Start Date End Date Chauncey Gunter MD 2 [facility] [address] [place] [id number] PCP - General Internal Medicine 04/15/24
== END 2025-04-21 10:12 | disposition home or self-care (01) ==
LOC: HO.LNP 10:11
PROVIDERS: Visit Provider Internal Medicine Hypertension Specialist
DX: I12.9 Hypertensive chronic kidney disease with stage 1 through stage 4 chronic kidney disease, or unspecified chronic kidney disease (principal); N18.9 Chronic kidney disease, unspecified
CPT/HCPCS: 82570

== ENCOUNTER 2025-05-05 09:33 | Outpatient (AMB) | payer OTHER, SELFPAY ==
--- NOTE | 2025-05-05 09:37 | A.OFFVIS_ITS ---
Intake Visit Reasons: 6m epilepsy Allergies corn Allergy (Unknown, Verified 05/05/25 09:41) Unknown ragweed pollen Allergy (Unknown, Verified 05/05/25 09:41) Unknown Medication List - Last Reconciled 05/05/25 by Abi Wadsworth CNP atorvastatin (Lipitor) 10 mg PO BEDTIME fluticasone propionate 50 mcg/actuation 2 sprays intranasal DAILY hydrochlorothiazide 12.5 mg (1/2 x 25 mg) PO DAILY ketoconazole 2% appl topical DAILY labetalol 100 mg PO BID levetiracetam 250 mg PO BID levocetirizine 5 mg PO DAILY levothyroxine 25 mcg PO DAILY HPI Comments Details: 69-year-old man with generalized, probably secondarily generalized seizure disorder started in Mar. Symptoms included fainting with no obvious warning. His CT and MRI brain revealed mild atrophy and a chronic right parieto- occipital infarct. EEG revealed bitemporal sharps and polyspike discharges. He was started on levetiracetam in Apr 2024. He was doing okay. He was taking levetiracetam 250mg 1 tablet twice a day, no missed doses or medication side effects. No seizures. He occasionally had some lightheadedness and felt off balance when he got out of bed quickly. No falls. Sleep was okay. [facility] Medical History Tubular adenoma Hx of radiation therapy History of chemotherapy Hodgkins disease Syncope High blood pressure Surgical History Hx of surgical procedure H/O colonoscopy H/O rectal polypectomy Family History Father Multiple sclerosis Mother Breast cancer Social History Housing: House Alcohol intake: current Alcohol intake frequency: a few times a week Patient Tobacco Use Status: Never used Tobacco Tobacco use type: Cigarette e-Cigarette/Vaping Use: Never Used Second Hand Smoke Exposure: No Substance Use Type: Marijuana service: No Current occupational status: unemployed Cognitive needs: No Hearing needs: No Vision needs: Yes (Glasses) Review of Systems Const Denies chills, Denies daytime sleepiness, Denies difficulty sleeping, Denies fatigue, Denies fever(s), Denies frequent falls, Denies headache(s), Denies increased appetite, Denies poor appetite, Denies snoring, Denies weakness, Denies weight gain and Denies weight loss Eyes Denies loss of vision ENT Denies vertigo, Denies dizziness and Denies headache(s) Card Denies chest pain at rest, Denies chest pain with activity, Denies syncope, Denies leg edema and Denies palpitations Resp Denies snoring GI Denies constipation, Denies heartburn, Denies diarrhea and Denies nausea Denies urinary frequency, Denies urinary incontinence and Denies urinary urgency Musc Denies abnormal gait, Denies numbness and Denies tingling Skin/Breast Denies dry skin and Denies rash Neuro Denies abnormal gait, Denies vertigo, Denies dizziness, Denies syncope, Denies frequent falls, Denies headache(s), Denies lack of coordination, Denies loss of vision, Reports memory loss, Denies numbness, Denies restless legs, Denies seizure-like activity, Denies tingling, Denies paresthesias, Denies tremor(s) and Denies weakness Psych Denies anxiety, Denies depression, Denies auditory hallucinations, Reports memory loss, Denies visual hallucinations and Denies suicidal ideation Endo Denies fatigue and Denies palpitations Physical Exam Const Other: General Appearance:? normal, in no acute distress. Skin:? no rashes, no significant birthmarks. Heart:? S1, S2 normal, no murmurs. Lungs:? clear anteriorly and posteriorly. Extremities:? no edema. Psych:? alert, oriented, cognitive function intact, cooperative with exam. Neuro Other: Mental Status:?Normal attention, orientation, memory and affect.? Cranial Nerves:?Pupils are equal, round and reactive to light. External occular muscles are intact. Visual carnes are full. Face is symmetrical. Facial sensations are normal. Tongue is midline. Palate elevates symmetrically. Shoulder shrugging is normal. Hearing to bedside conversation is normal. Sensory Exam:?....? Coordination:?No ataxia,?no titubation.? Gait Exam: Within normal limits. Cerebellar Signs:?Gmbaiw-iz-vpmc is okay. Extrapyramidal System:?No tremor, rigidity with normal facial expressions.? Pronator Drift:?Not present.? Involuntary Movements:?No tremors seen.? Speech:?Normal.? Results Reviewed Results Reviewed: 48 hr EEG at [facility] in Mar 2024: Bitemporal sharps and generalized polyspike discharges [place] [facility] [place]: Mild diff atrophy, chronic R occipital infarct [place] brain [place] [facility] [place]: Ch R parietooccipital infarct, Mild to mod atrophy, mild MVD Routine EEG at [facility] in November 2023: WNL Assessment & Plan Assessment & Plan (1) Seizure disorder: Code(s): G40.909 - Epilepsy, unspecified, not intractable, without status epilepticus Category: Medical Plan: Continue levetiracetam 250mg 1 tablet twice a day. He was educated on the importance of medication compliance and risk associated with missed doses, including seizures. Change positions slowly. Follow up in 6 months or sooner as needed. (2) History of stroke: Code(s): Z86.73 - Personal history of transient ischemic attack (TIA), and cerebral infarction without residual deficits Category: Medical (3) Multifactorial dementia: Code(s): F03.90 - Unspecified dementia, unspecified severity, without behavioral disturbance, psychotic disturbance, mood disturbance, and anxiety Category: Medical Plan . Medications: Changed From levetiracetam 250 mg PO BID To levetiracetam 250 mg PO BID 180 tabs 1RF 90 days Coding Level of Care Code Est Pt Level 4 (57323) Diagnoses Seizure disorder G40.909 History of stroke Z86.73 Multifactorial dementia F03.90
== END 2025-05-05 10:44 | disposition home or self-care (01) ==
LOC: HO.HSM 09:34
PROVIDERS: Referring Provider Internal Medicine; Visit Provider Registered Nurse
DX: G40.909 Epilepsy, unspecified, not intractable, without status epilepticus (principal); Z86.73 Personal history of transient ischemic attack (TIA), and cerebral infarction without residual deficits; F03.90 Unspecified dementia, unspecified severity, without behavioral disturbance, psychotic disturbance, mood disturbance, and anxiety
CPT/HCPCS: 99214

== ENCOUNTER → 2025-05-05 09:33 | Outpatient (BNVA) | payer OTHER, SELFPAY | PROVIDERS: Referring Provider Internal Medicine; Visit Provider Registered Nurse | DX: G40.909 Epilepsy, unspecified, not intractable, without status epilepticus (principal); F03.90 Unspecified dementia, unspecified severity, without behavioral disturbance, psychotic disturbance, mood disturbance, and anxiety; Z86.73 Personal history of transient ischemic attack (TIA), and cerebral infarction without residual deficits; Z79.899 Other long term (current) drug therapy | CPT/HCPCS: 99212 ==

== ENCOUNTER 2025-05-08 09:58 | Outpatient (REF) | payer OTHER, SELFPAY ==
--- OUTSIDE RECORDS SUMMARY | 2023-11-22 03:30 | XMS_ITS ---
Author Organization [facility] Address [address] [place] [address] Care Team Providers Care Automation Qtp Tester Name Role Phone Jani MCCURDY, Chauncey Primary Care Provider Unavaila Bishnu Bella Jr [phone] REASON FOR VISIT screening colon Encounters Encounter Location Date Provider Diagnosis [facility] Out[place] [address] [place] [id number] 11/22/2023 Bishnu May Jr Encounter for screening colonoscopy Z12.11 and Colon polyps K63.5 Assessments Encounter Date Diagnosis (ICD Code) Assessment Notes Treatment Notes Treatment Clinical Notes Section Notes 11/22/2023 Encounter for screening colonoscopy (ICD-10 - Z12.11) 11/22/2023 Colon polyps (ICD-10 - K63.5) Plan Of Treatment No Information Progress Notes * CLAUDIA ANYA ODOB: (69 yo M)Acc No.[id number]:11/22/2023 COLON WITH MAC Patient: ANYA SIEGEL Shahana Provider: Shelly May MD :1955 A ge:68 Y S ex:Male Date:11/22/2023 Address:[address] [place] [address] Pcp:Chauncey Gunter MD Subjective: * Chief Complaints: * S creening colon Assessment: * Assessment: 1. E ncounter for screening colonoscopy - Z12.11 (Primary) 2 . C olon polyps - K63.5 Plan: * Procedure Codes: 4 5385 LESION REMOVAL [id number] COLONOSCOPY AND BIOPSY, Modifiers: 59 Billing Information: * Procedure Codes: 55294 LESION REMOVAL COLONOSCOPY. 05403 COLONOSCOPY AND BIOPSY. Modifiers: 59 * The named appointment provid er may or may not be the originator of this progress note, and it is not deemed complete until electronically signed by the appointment provider. Sign off status: Pending * Provider: Shelly May MD Date: 0 11/22/2023 Generated for Moisés rojas/Christa/Gregorysmitting on: 1 07/09/2024 10:02 AM EST
--- OUTSIDE RECORDS SUMMARY | 2024-06-01 05:00 | XMS_ITS ---
Author Organization Fausto Felder III, MD Address [address] [place] [address] [place] [address] Care Team Providers Care Rn Surgical Pcu Name Role Phone Chauncey Gunter MD Primary Care Provider Dr. Fausto Acosta III Unavailable [phone] Allergies Allergen (clinical drug ingredient) Drug/Non Drug Allergy documented on EMR Reaction Allergy Type Onset Date Status Ragweed Unknown Allergy Active [place] Unknown Allergy Active REASON FOR VISIT Follow [...] Date Provider Diagnosis Fausto Felder III, MD [address] [place] [address] [place] [address] 06/01/2024 Fausto Felder Stage IIA Hodgkin's disease [...] * José Miguel TAYLOROB:1955 (69 yo M)Acc No.[id number]:06/01/2024 Progress Notes Patient: Louis SIEGEL Provider: Mayur Felder MD :1955 A ge:68 Y S ex:Male Date:06/01/2024 Address:[address] [place] [address], [address], [place], [id number] Pcp:Chauncey Gunter MD Subjective: * Chief Complaints: [...] with no children. 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 * Social History: T obacco Use: T obacco Use/Smoking P atient is a n onsmoker A dditional Findings: Tobacco Non-User A ggressive non-smoker H e was born [place], [place]. 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 * Medications: T aking Adult Aspirin EC Low Strength 81 MG Tablet Delayed Release 1 tablet Orally Once a day , Taking Labetalol HCl 200 MG Tablet 1 tablet Orally Twice a day , Taking hydroCHLOROthiazide 25 MG Tablet TAKE 1 TABLET BY MOUTH EVERY DAY Oral , Medication List reviewed and reconciled with the patient * Allergies: R agweed, [place]: Allergy. Objective: * Vitals: * Examination: G [...] 06/01/2024 Generated for Moisés rojas/Christa/eTransmitting on: 1 07/09/2024 10:02 AM EST History and Physical Notes * HPI [...]
--- OUTSIDE RECORDS SUMMARY | 2025-05-08 10:02 | XMS_ITS | Clinical Summary ---
Author Organization [employer] Address [address] [facility] [address] [place] [address] Care Team Providers Care Wind Energy Engineer Name Role Phone Unavailable Primary Care Provider [...] patient's age to complete this topic Insurance [address] [address] [place]
--- OUTSIDE RECORDS SUMMARY | 2025-05-08 10:02 | XMS_ITS | Patient Health Record ---
Author Organization Fausto Felder III, MD Address [address] [place] [address] [place] [address] Care Team Providers Care Switchboard And Control Room Operator Name Role Phone Chauncey Gunter MD Primary Care Provider Dr. Fausto Acosta III Unavailable Allergies Allergen (clinical drug ingredient) Drug/Non Drug Allergy documented on EMR Reaction Allergy Type Onset Date Status Ragweed Unknown Allergy Active [place] Unknown Allergy Active Reason For Referral No [...] Problem Status W/U Status Risk Notes Problem 990913472 Overweight (E66.3) Active confirmed His weight is n ow in the normal range and this problem has resolved. Problem 32496202 Hypertension (I10) Active confirmed His blood press ure is well controlled today At 130/84 andno change in his regimen was indicated. Problem 39869055 Colonic polyp (K63.5) Active confirmed His polyp was a tubular adenoma and routine five-year colonoscopies are indicated. 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 Problem [id number] Stage IIA Hodgkin's disease (C81.90) Active confirmed [...] End Date [employer] Medicare [address] [place] [address] [id number] Louis Waters Self - patient is the insured MEDICARE NGS [address] [place] [address] [id number] Louis Waters Self - patient is the insured MEDICAID [place] [address] [place], [place] [id number] [phone] [id number] Louis Waters Self - patient is the [...]
--- OUTSIDE RECORDS SUMMARY | 2025-05-08 10:02 | XMS_ITS | Clinical Summary ---
Author Organization [facility] Address [address] [place] [address] Phone Care Team Providers Care Mixing Supervisor Name Role Phone Chauncey Gunter MD Primary Care Provider [phone] Social History Tobacco Use Types Packs/Day Years [...] Group ID:SCO Type:Not on file Address: [address] [place] [phone] Care Teams Mixing Supervisor Relationship Specialty Start Date End Date Chauncey Gunter MD [address] [facility] [address] [place] [id number] PCP - General Internal Medicine 04/15/24
--- OUTSIDE RECORDS SUMMARY | 2025-05-08 10:02 | XMS_ITS | Patient Health Record ---
Author Organization [facility] Address [address] [place] [address] Care Team Providers Care Tool Distributor Name Role Phone Chauncey Gunter MD Primary Care Provider Bishnu Dorman Jr Unavailable [phone] Allergies No Known Allergies Reason For Referral No Information Medications Medication SIG (Take, Route, Frequency, Duration) Notes Start Date End Date Status Labetalol HCl 200mg Active hydroCHLOROthiazide 25mg Active Aspir-81 81mg Active Social History Social History Additional Details Category Social Info Options Details Miscellaneous: Marital status: single 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 [employer]/ [employer] Problems Problem Type SNOMED Code ICD Code Onset Dates Problem Status W/U Status Risk Notes Problem Colon cancer screening (930221991) Colon cancer screening (Z12.11) Active confirmed Problem Long-term current use of antiplatelet drug (878158709633789) Long-term use of aspirin therapy (Z79.82) Active confirmed Problem Long-term current use of drug therapy (011292321) [facility] current use of diuretic (Z79.899) Active confirmed Plan Of Treatment Future Test Test Name Order Date COLONOSCOPY 03/04/2013 Insurance Providers Payer Name Payer Address Payer Phone Subscriber Number Group Number Insured Name Patient Relationship to Insured Coverage Start Date Coverage End Date [employer] [address] [place], [place] [id number] ANYA TAYLOR Self - patient is the insured [facility]ID [facility] [address] [place] [address] [id number] ANYA TAYLOR Self - patient is the insured Medical (General) History Medical History History ICD Code Hypertension Hodgkin's disease stage II a 1995 status post XRT and chemotherapy Colon polyps, history of tub ular adenoma, last colonoscopy 2013, ten-year followup Surgical History Surgery Date(Month/Year) Mediastinoscopy 1995
[2025-05-08 11:48] LABS: Total Protein Urine Random < 7 mg/dL (<12)
[2025-05-08 11:54] LABS: Anion Gap 15 (12-20); Blood Urea Nitrogen 21 mg/dL (9-16); Calcium 8.9 mg/dL (8.4-10.2); Carbon Dioxide 27 mmol/L (22-29); Chloride 102 mmol/L (96-108); Estimated Glomerular Filt Rate 43; Potassium 3.7 mmol/L (3.3-5.1); Sodium 140 mmol/L (135-145)
[2025-05-08 12:39] LABS: Free T4 (Free Thyroxine) 0.84 ng/dL (0.71-1.85)
== END 2025-05-08 09:59 | disposition home or self-care (01) ==
LOC: HO.LAB 09:58
PROVIDERS: Visit Provider Internal Medicine Hypertension Specialist
DX: I12.9 Hypertensive chronic kidney disease with stage 1 through stage 4 chronic kidney disease, or unspecified chronic kidney disease (principal); N18.9 Chronic kidney disease, unspecified; R79.89 Other specified abnormal findings of blood chemistry
CPT/HCPCS: 36415; 80048; 82570; 84156; 84439; 84443

== ENCOUNTER 2025-05-10 10:42 | Outpatient (REF) | payer OTHER, SELFPAY ==
--- NOTE | ~2025-05-10 | US_ITS ---
EXAMINATION: Renal ultrasound bilateral CLINICAL INFORMATION: Chronic kidney disease. COMPARISON: Previous renal ultrasound April [address] of the abdomen and pelvis November 2012 TECHNIQUE: Grayscale and color imaging of the kidneys FINDINGS: RIGHT KIDNEY: 9.6 x 4.2 x 6.2 cm (SAG x AP x TRV). The kidney is normal in size, contour, and echogenicity. Renal cortical thickness is normal. Small 2 mm echogenic focus in the lateral mid right kidney questionable for stone versus a vascular calcification. No mass. No hydronephrosis. LEFT KIDNEY: 9 x 5.1 x 4 cm (SAG x AP x TRV). The kidney is normal in size, contour, and echogenicity. Renal cortical thickness is normal. No calculi or focal parenchymal lesions. No hydronephrosis. US/US renal BI IMPRESSION: 2 mm echogenic focus in the lateral mid right kidney, question small stone versus vascular reflector. Otherwise unremarkable exam. Electronically signed by: Yazmin Warner MD 05/10/2025 11:53 AM EST
== END 2025-05-10 10:43 | disposition home or self-care (01) ==
LOC: HO.HMGCX 10:42
PROVIDERS: Visit Provider Internal Medicine Hypertension Specialist
DX: N18.9 Chronic kidney disease, unspecified (principal)
CPT/HCPCS: 76775

== ENCOUNTER → 2025-05-10 10:45 | Outpatient (BNV) | payer OTHER, SELFPAY | PROVIDERS: Visit Provider Radiology Diagnostic Radiology | DX: N18.9 Chronic kidney disease, unspecified (principal); R93.421 Abnormal radiologic findings on diagnostic imaging of right kidney | CPT/HCPCS: 76775 ==

== ENCOUNTER 2025-05-11 13:11 | Outpatient (AMB) | payer OTHER, SELFPAY ==
--- OUTSIDE RECORDS SUMMARY | 2023-11-22 03:30 | XMS_ITS ---
Author Organization [facility] Address [address] [place] [address] Care Team Providers Care Appliance Assembler Name Role Phone Jani MCCURDY, Chauncey Primary Care Provider Unavaila Bishnu Bella Jr REASON FOR VISIT screening colon Encounters Encounter Location Date Provider Diagnosis [facility] [place] [address] [place] [id number] 11/22/2023 Bishnu May Jr Encounter for screening colonoscopy Z12.11 and Colon polyps K63.5 Assessments Encounter Date Diagnosis (ICD Code) Assessment Notes Treatment Notes Treatment Clinical Notes Section Notes 11/22/2023 Encounter for screening colonoscopy (ICD-10 - Z12.11) 11/22/2023 Colon polyps (ICD-10 - K63.5) Plan Of Treatment No Information Progress Notes * CLAUDIA ANYA ODOB: (69 yo M)Acc No.[id number]:11/22/2023 COLON WITH MAC Patient: ANYA SIEGEL Shahana Provider: Shelly May MD :1955 A ge:68 Y S ex:Male Date:11/22/2023 Address:[address] [place] [address] Pcp:Chauncey Gunter MD Subjective: * Chief Complaints: * S creening colon Assessment: * Assessment: 1. E ncounter for screening colonoscopy - Z12.11 (Primary) 2 . C olon polyps - K63.5 Plan: * Procedure Codes: 4 5385 LESION REMOVAL [id number] COLONOSCOPY AND BIOPSY, Modifiers: 59 Billing Information: * Procedure Codes: 85992 LESION REMOVAL COLONOSCOPY. 51518 COLONOSCOPY AND BIOPSY. Modifiers: 59 * The named appointment provid er may or may not be the originator of this progress note, and it is not deemed complete until electronically signed by the appointment provider. Sign off status: Pending * Provider: Shelly May MD Date: 0 11/22/2023 Generated for Moisés rojas/Christa/Gregorysmitting on: 1 07/12/2024 05:12 PM EST
--- OUTSIDE RECORDS SUMMARY | 2024-06-01 05:00 | XMS_ITS ---
Author Organization Fausto Felder III, MD Address [address] [place] [address] [place] [address] Care Team Providers Care Electronic Commerce Specialist Name Role Phone Chauncey Gunter MD Primary Care Provider Dr. Fausto Acosta III Unavailable Allergies Allergen (clinical drug ingredient) Drug/Non Drug Allergy documented on EMR Reaction Allergy Type Onset Date Status Ragweed Unknown Allergy Active [place] Unknown Allergy Active REASON FOR VISIT Follow up Medications Medication SIG (Take, Route, Frequency, Duration) Notes Start Date End Date Status hydroCHLOROthiazide 25 MG TAKE 1 TABLET BY MOUTH EVERY DAY Oral Active Labetalol HCl 200 MG 1 tablet Orally Twi ce a day Active Adult Aspirin EC Low Strengt h 81 MG 1 tablet Orally Once a day Active Social History Tobacco Use: Social History Observation Description Date Details (start date - stop date) Never Smoker NA - NA Tobacco Use/Smoking Question Answer Notes Patient is a nonsmoker Additional Findings: Tobacco Non-User Aggressive non-smoker Encounters Encounter Location Date Provider Diagnosis Fausto Felder III, MD [address] [place] [address] [place] [address] 06/01/2024 Fausto Felder Stage IIA Hodgkin's disease C81.90 Assessments Encounter Date Diagnosis (ICD Code) Assessment Notes Treatment Notes Treatment Clinical Notes 06/01/2024 Stage IIA Hodgkin's disease (ICD-10 - C81.90) There is no sign of recurrent Hodgkin's disease today. No sign of a new primary lymphoma or other malignancy today. Plan Of Treatment Medication Medication Name Sig Start Date Stop Date Notes hydroCHLOROthiazide 25 MG TAKE 1 TABLET BY MOUTH EVERY DAY Oral Labetalol HCl 200 MG 1 tablet Orally Twi ce a day Adult Aspirin EC Low Strength 81 MG 1 ta blet Orally Once a day Progress Notes * José Miguel TAYLOROB:1955 (69 yo M)Acc No.[id number]:06/01/2024 Progress Notes Patient: Louis SIEGEL Provider: Mayur Felder MD :1955 A ge:68 Y S ex:Male Date:06/01/2024 Address:[address] [place] [address], [address], [place], [id number] Pcp:Chauncey Gunter MD Subjective: * Chief Complaints: * 1 . Follow up. * HPI: C OVID-19 Screening: Questions H ave you had any new onset fever, chills, cough, congestion, sore throat, shortness of breath, muscle aches? N o * ROS: G eneral/Constitutional: pain o nly normal aches and pains. C hills d enies.?Fatigue a dmits. F ever d enies. E NT: Decreased hearing d enies. R espiratory: Cough d enies. C ardiovascular: Chest pain with exertion d enies. D yspnea on exertion?denies. S hortness of breath d enies. G astrointestinal: Constipation d enies. D ecreased appetite d enies.?Diarrhea d enies. H eartburn d enies. N ausea d enies. R ectal bleeding?denies. V omiting d enies. H ematology: bruising d enies. p etechiae d enies. S wollen glands n one have been noted. G enitourinary: Frequent urination d enies. M usculoskeletal: Muscle aches d enies. P ainful joints d enies. S ciatica d enies. W eakness d enies. S kin: Itching d enies. R omer d enies. S kin lesion(s)?denies. N eurologic: Difficulty speaking d enies. D izziness d enies.?Headache d enies. L ow back pain d enies. P sychiatric: Depressed mood d enies. * Medical History: H ypertension, stage II Hodgkin's disease age 41 treated with radiation and chemotherapy 1996, 2006 tubular adenoma on colonoscopy, last 2015, Hyperplastic and adenomatous colonic polyps. * Surgical History: m ediastinal node biopsy 1995, dental extraction , colonoscopy,1 tubular adenoma 2006, colonoscopy, one hyperplastic polyp May 2013, Cataract surgery 12/2021. * Hospitalization/Major Diagno stic Procedure: D enies Past Hospitalization. * Family History: F ather: 53 yrs, multiple sclerosis. M other: alive 74 yrs, breast cancer (in remission 20 years). 2 brother(s) - healthy. . He is single with no children. 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 * Social History: T obacco Use: T obacco Use/Smoking P atient is a n onsmoker A dditional Findings: Tobacco Non-User A ggressive non-smoker H e was born [place], [place]. 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 * Medications: T aking Adult Aspirin EC Low Strength 81 MG Tablet Delayed Release 1 tablet Orally Once a day , Taking Labetalol HCl 200 MG Tablet 1 tablet Orally Twice a day , Taking hydroCHLOROthiazide 25 MG Tablet TAKE 1 TABLET BY MOUTH EVERY DAY Oral , Medication List reviewed and reconciled with the patient * Allergies: R agweed, [place]: Allergy. Objective: * Vitals: * Examination: G eneral Examination: GENERAL APPEARANCE: p leasant, well nourished, well developed, in no acute distress, calm and relaxed. HEAD: a traumatic, normocephalic. EYES: e apollo, perrla, anicteric, conjugate. EARS: n ormal. NOSE: s eptum intact. ORAL CAVITY: n ormal, unremarkable. NECK/THYROID: n o jugular venous distention, no carotid bruit, thyroid normal. LYMPH NODES: n o enlarged lymph nodes,spleen normal. SKIN: n o suspicious lesions, anicteric. HEART: n o clicks, gallops, murmurs, or rubs, regular rhythm, S1, S2 normal, no s3, or vascular bruits. LUNGS: c lear to auscultation . BREASTS: no masses palpable bilaterally. ABDOMEN: b owel sounds normal, no ascites, no organomegaly, no mass. RECTAL EXAM: n ot examined. MUSCULOSKELETAL: e xtremities unremarkable, no clubbing, cyanosis or edema. PERIPHERAL PULSES: n ormal. NEUROLOGIC: a lert and oriented, cranial nerves 2-12 grossly intact, deep tendon reflexes 2+ symmetrical, motor strength normal upper and lower extremities, sensory exam intact. PSYCH: a lert, oriented. Assessment: * Assessment: 1. S tage IIA Hodgkin's disease - C81.90 N otes :There is no sign of recurrent Hodgkin's disease today. No sign of a new primary lymphoma or other malignancy today. Plan: * Treatment: * Images: * The named appointment provid er may or may not be the originator of this progress note, and it is not deemed complete until electronically signed by the appointment provider. Sign off status: Pending * Provider: Mayur Felder MD Date: 0 06/01/2024 Generated for Moisés rojas/Christa/eTransmitting on: 1 07/12/2024 05:12 PM EST History and Physical Notes * HPI (History of Present Illness) Category Sub-Category Detail Notes COVID-19 Screening Questions Have you had any new onset fever, chills, cough, congestion, sore throat, shortness of breath, muscle aches?: No Examination Category Sub-Category Detail Notes General Examination GENERAL APPEARANCE: pleasant , well nourished, well developed, in no acute distress, calm and relaxed HEAD: atraumatic, normocep halic EYES: eomi, perrla, anicte minal, conjugate EARS: normal NOSE: septum intact NECK/THYROID: no jugular venous di stention, no carotid bruit, thyroid normal HEART: no clicks, gallops, murmurs, or rubs, regular rhythm, S1, S2 normal, no s3, or vascular bruits LUNGS: clear to auscultatio n ABDOMEN: bowel sounds normal, no ascites, no organomegaly, no mass NEUROLOGIC: alert and oriented, cranial nerves 2-12 grossly intact, deep tendon reflexes 2+ symmetrical, motor strength normal upper and lower extremities, sensory exam intact SKIN: no suspicious lesion s, anicteric PERIPHERAL PULSES: normal BREASTS: no masses palpable b ilaterally MUSCULOSKELETAL: extremities unremark able, no clubbing, cyanosis or edema LYMPH NODES: no enlarged lymph no kris,spleen normal RECTAL EXAM: not examined PSYCH: alert, oriented ORAL CAVITY: normal, unremarkable
[2025-05-11 13:18] VITALS: BP 150/82; PULSE 89; O2SAT 97; BMI 22.1
--- NOTE | 2025-05-11 13:18 | HO.NEPHOV_ITS ---
Vital Signs 05/11/25 13:18 05/11/25 13:30 Height 5 ft 10 in Weight 154 lb BMI 22.1 BP 150/82 H 130/70 Blood Pressure Location Lt brachial Lt brachial Position Sitting Sitting Pulse 89 Pulse Source Pulse Oximeter Pulse Oximetry (%) 97 Oxygen Delivery Method Room Air Intake Visit Reasons: 3 wks f/u w/ labs-CONF Corporate Director Of Human Resources Required: No Accompanied by: Self / Same As Patient Allergies corn Allergy (Unknown, Verified 05/11/25 13:20) Unknown ragweed pollen Allergy (Unknown, Verified 05/11/25 13:20) Unknown Medication List - Last Reconciled 05/11/25 by Yuan Duffy MD atorvastatin (Lipitor) 10 mg PO BEDTIME fluticasone propionate 50 mcg/actuation 2 sprays intranasal DAILY hydrochlorothiazide 12.5 mg (1/2 x 25 mg) PO DAILY ketoconazole 2% appl topical DAILY labetalol 100 mg PO BID levetiracetam 250 mg PO BID 90 days levocetirizine 5 mg PO DAILY levothyroxine (Unithroid) 50 mcg PO DAILY HPI Comments Details: History of Present Illness The patient is a 69 year old individual presenting for a nephrology consultation for evaluation of chronic kidney disease. The patient's creatinine has been around 1.5 for the past 3-4 years, and this is the patient's first visit with a gospel singer. Recent lab results from February showed kidney function at 46%, which is slightly lower than the 49% recorded in 2021. The patient reports urinating approximately every three hours during the day and waking up once around 3 a.m. to urinate. The patient has a history of hypertension for the last 6-7 years, with typical blood pressure readings between 120-130 systolic. The patient takes labetalol and hydrochlorothiazide for blood pressure management, and the dose of hydrochlorothiazide was recently halved by the primary care physician due to concerns for kidney effects. Past medical history is significant for Stage 2 Hodgkin's lymphoma in 1997, treated with six months of chemotherapy and three months of radiation, and is currently in remission. The patient also has hypothyroidism and a known allergy to clonazepam. The patient reports pain under the right rib cage for a number of years and denies any previous surgeries. 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 The patient does not smoke tobacco but does use cannabis and drinks alcohol (beer or gin) occasionally. The patient's main form of exercise is riding a bicycle. ? 05/11/25 The patient is a 69 year old male presenting for a follow-up visit for chronic kidney disease. His kidney function is noted to be approximately 50%, and a recent 24-hour urine collection yielded a low volume of 475 mL, suggesting possible dehydration. A kidney ultrasound was reportedly normal, and urinalysis showed no proteinuria. The patient recently consulted an sourcing specialist and underwent skin testing, which revealed allergies to dust mites, grass pollen, and tree pollen. He was prescribed two nasal sprays and another medication for this condition. Rigby allergy was ruled out. His medical history includes hypothyroidism, though he does not recall for how long he has been on medication. He reports rare episodes of lightheadedness when getting up in the morning. For exercise, he rides his bicycle. Results - Labs: - 24-hour urine collection: Volume of 475 mL. - Urinalysis: No proteinuria. - Imaging: - Kidney Ultrasound: Bilateral kidneys were normal in appearance. - Tests and Diagnostics: - Allergy testing: Positive for dust mites, grass pollen, and tree pollen. [facility] Medical History Tubular adenoma Hx of radiation therapy History of chemotherapy Hodgkins disease Syncope High blood pressure Surgical History Hx of surgical procedure H/O colonoscopy H/O rectal polypectomy Family History Father Multiple sclerosis Mother Breast cancer Social History Housing: House Alcohol intake: current Alcohol intake frequency: a few times a week Patient Tobacco Use Status: Never used Tobacco Tobacco use type: Cigarette e-Cigarette/Vaping Use: Never Used Second Hand Smoke Exposure: No Substance Use Type: Marijuana service: No Current occupational status: unemployed Cognitive needs: No Hearing needs: No Vision needs: Yes (Glasses) Physical Exam Exam Exam: Physical Exam General: Awake. Comfortable. HENT: Neck supple. Mucosa moist. Pulmonary: Lungs aeration equal. No rales. Cardiology: Heart S1-S2 heard. No gallop. Blood pressure was 125/80, a little high. Abdomen: Soft. Non tender. Bowel sounds normal. Neurologic: No involuntary movements. No myoclonus. Extremities: No edema. No rash. Vital Signs: Last Vital Signs Pulse 89 05/11/25 13:18 BP 130/70 05/11/25 13:30 Pulse Ox 97 05/11/25 13:18 Oxygen Delivery Method Room Air 05/11/25 13:18 BMI result Body Mass Index 22.1 Results Reviewed Results Reviewed: Apr 2025 RIGHT KIDNEY: 9.6 x 4.2 x 6.2 cm (SAG x AP x TRV). The kidney is normal in size, contour, and echogenicity. Renal cortical thickness is normal. Small 2 mm echogenic focus in the lateral mid right kidney questionable for stone versus a vascular calcification. No mass. No hydronephrosis. LEFT KIDNEY: 9 x 5.1 x 4 cm (SAG x AP x TRV). The kidney is normal in size, contour, and echogenicity. Renal cortical thickness is normal. No calculi or focal parenchymal lesions. No hydronephrosis. Nephrology Results: Sodium, (135-145) 140 mmol/L 05/08/25 Potassium, (3.3-5.1) 3.7 mmol/L 05/08/25 Chloride, (96-108) 102 mmol/L 05/08/25 Carbon Dioxide, (22-29) 27 mmol/L 05/08/25 BUN, (9-16) 21 mg/dL H 05/08/25 Creatinine, (0.5-1.4) 1.61 mg/dL H 05/08/25 Calcium, (8.4-10.2) 8.9 mg/dL Δ 05/08/25 Urine Protein, (Neg-Trace) Negative mg/dL 03/26/25 Urine Creatinine 109.92 mg/dL 05/08/25 Renal US 05/10/25 Assessment & Plan Assessment & Plan (1) Hypertension: Code(s): I10 - Essential (primary) hypertension Category: Medical (2) Chronic kidney disease (CKD): Code(s): N18.9 - Chronic kidney disease, unspecified Category: Medical Plan Plan 1. Chronic Kidney Disease - The patient's kidney function is approximately 50%. - A recent 24-hour urine collection showing low volume suggests inadequate fluid intake. Cr Cl was 50ml/mt - The patient was advised to increase his fluid intake, particularly water, to improve hydration and support kidney function. Recent urine studies were benign therefore glomerular nephritis or interstitial disease seem unlikely. - No changes will be made to his current medications. - Kidney function will be rechecked in one month. - A follow-up appointment is scheduled in three months. 2. Hypertension - Blood pressure was 125/80 mmHg, which is slightly elevated. - No changes will be made to his current regimen at this time. Orders: Orders Basic Metabolic Panel 3 Months N18.9 - Chronic kidney disease, unspecified Coding Level of Care Code Est Pt Level 4 (84673) Diagnoses Hypertension I10 Chronic kidney disease (CKD) N18.9
[2025-05-11 13:30] VITALS: BP 130/70
--- OUTSIDE RECORDS SUMMARY | 2025-05-11 17:13 | XMS_ITS | Clinical Summary ---
Author Organization [facility] Address [address] [place] [address] Phone Care Team Providers Care Logger Driving Horses Name Role Phone Chauncey Gunter MD Primary Care Provider [phone] Social History Tobacco Use Types Packs/Day Years [...] Group ID:SCO Type:Not on file Address: [address] [place] [phone] Care Teams Logger Driving Horses Relationship Specialty Start Date End Date Chauncey Gunter MD [address] [facility] [address] [place] [address] PCP - General Internal Medicine 04/15/24
--- OUTSIDE RECORDS SUMMARY | 2025-05-11 17:13 | XMS_ITS | Patient Health Record ---
Author Organization Fausto Felder III, MD Address [address] [place] [address] [place] [address] Care Team Providers Care Paper Products Printer Name Role Phone Chauncey Gunter MD Primary Care Provider Dr. Fausto Acosta III Unavailable Allergies Allergen (clinical drug ingredient) Drug/Non Drug Allergy documented on EMR Reaction Allergy Type Onset Date Status Ragweed Unknown Allergy Active [place] Unknown Allergy Active Reason For Referral No [...] Problem Status W/U Status Risk Notes Problem 723920100 Overweight (E66.3) Active confirmed His weight is n ow in the normal range and this problem has resolved. Problem 05527937 Hypertension (I10) Active confirmed His blood press ure is well controlled today At 130/84 andno change in his regimen was indicated. Problem 84085778 Colonic polyp (K63.5) Active confirmed His polyp was a tubular adenoma and routine five-year colonoscopies are indicated. He and I discussed this and he is aware of the necessity for this and will address this issue with his hairspring cutter and primary care physician. Problem 389023811 Stage IIA Hodgkin's disease (C81.90) Active confirmed [...] End Date [employer] Medicare [address] [place] [address] [id number] Louis Waters Self - patient is the insured MEDICARE NGS [address] [facility] [place] [address] [id number] Louis Waters Self - patient is the insured MEDICAID [place] [address] [place], [place] [id number] [phone] [id number] Louis Waters Self - patient is the [...]
--- OUTSIDE RECORDS SUMMARY | 2025-05-11 17:13 | XMS_ITS | Patient Health Record ---
Author Organization [facility] Address [address] [place] [address] Care Team Providers Care Bias Binding Cutter Name Role Phone Chauncey Gunter MD Primary [...] Status Risk Notes Problem Colon cancer screening (598626686) Colon cancer screening (Z12.11) Active confirmed Problem Long-term current use of antiplatelet drug (150607045914839) Long-term use of aspirin therapy (Z79.82) Active confirmed Problem Long-term current use of drug therapy (992135243) correction current use of diuretic (Z79.899) Active confirmed Plan Of Treatment Future Test Test Name Order Date COLONOSCOPY 03/04/2013 Insurance Providers Payer Name Payer Address Payer Phone Subscriber Number Group Number Insured Name Patient Relationship to Insured Coverage Start Date Coverage End Date AET HE[employer]CARE [address] [place], [place] [id number] ANYA TAYLOR Self - patient is the insured [facility]ICAID [facility] [address] [place] [address] [id number] ANYA TAYLOR Self - patient is the insured Medical (General) History Medical History History ICD Code Hypertension Hodgkin's disease stage II a 1995 status post XRT and chemotherapy Colon polyps, history of tub ular adenoma, last colonoscopy 2013, ten-year followup Surgical History Surgery Date(Month/Year) Mediastinoscopy 1995
--- OUTSIDE RECORDS SUMMARY | 2025-05-11 17:13 | XMS_ITS | Clinical Summary ---
Author Organization [employer] Address [address] [facility] [address] [place] [address] Care Team Providers Care Spray Machine Operator Name Role Phone Unavailable Primary Care [...] to complete this topic Insurance [place] [address] STAND[place]
== END 2025-05-11 13:34 | disposition home or self-care (01) ==
LOC: HO.HKA 13:11
PROVIDERS: Visit Provider Internal Medicine Hypertension Specialist
DX: I12.9 Hypertensive chronic kidney disease with stage 1 through stage 4 chronic kidney disease, or unspecified chronic kidney disease (principal); N18.9 Chronic kidney disease, unspecified
CPT/HCPCS: 99214

== ENCOUNTER → 2025-05-11 13:11 | Outpatient (BNVA) | payer OTHER, SELFPAY | PROVIDERS: Visit Provider Internal Medicine Hypertension Specialist | DX: I12.9 Hypertensive chronic kidney disease with stage 1 through stage 4 chronic kidney disease, or unspecified chronic kidney disease (principal); N18.9 Chronic kidney disease, unspecified | CPT/HCPCS: 99212 ==

== ENCOUNTER 2025-05-13 09:59 | Outpatient (AMB) | payer OTHER, SELFPAY ==
--- OUTSIDE RECORDS SUMMARY | 2023-11-22 03:30 | XMS_ITS ---
Author Organization [facility] Address [address] [place] [address] Care Team Providers Care College Or University Faculty Member Name Role Phone Jani MCCURDY, Chauncey Primary Care Provider Unavaila Bishnu Bella Jr [phone] REASON FOR VISIT screening colon Encounters Encounter Location Date Provider Diagnosis [facility] [place] [address] [place] [id number] 11/22/2023 Bishnu May Jr Encounter for screening colonoscopy Z12.11 and Colon polyps K63.5 Assessments Encounter Date Diagnosis (ICD Code) Assessment Notes Treatment Notes Treatment Clinical Notes Section Notes 11/22/2023 Encounter for screening colonoscopy (ICD-10 - Z12.11) 11/22/2023 Colon polyps (ICD-10 - K63.5) Plan Of Treatment No Information Progress Notes * CLAUDIA ANYA ODOB: (69 yo M)Acc No.[id number]:11/22/2023 COLON WITH MAC Patient: ANYA SIEGEL Shahana Provider: Shelly May MD :1955 A ge:68 Y S ex:Male Date:11/22/2023 Address:[address] [place] [address] Pcp:Chaucney Gunter MD Subjective: * Chief Complaints: * S creening colon Assessment: * Assessment: 1. E ncounter for screening colonoscopy - Z12.11 (Primary) 2 . C olon polyps - K63.5 Plan: * Procedure Codes: 4 5385 LESION REMOVAL [id number] COLONOSCOPY AND BIOPSY, Modifiers: 59 Billing Information: * Procedure Codes: 38026 LESION REMOVAL COLONOSCOPY. 99539 COLONOSCOPY AND BIOPSY. Modifiers: 59 * The named appointment provid er may or may not be the originator of this progress note, and it is not deemed complete until electronically signed by the appointment provider. Sign off status: Pending * Provider: Shelly May MD Date: 0 11/22/2023 Generated for Moisés rojas/Christa/Gregorysmitting on: 1 07/14/2024 12:17 PM EST
--- OUTSIDE RECORDS SUMMARY | 2024-06-01 05:00 | XMS_ITS ---
Author Organization Fausto Felder III, MD Address [address] [place] [address] [place] [address] Care Team Providers Care Car Inspector Name Role Phone Chauncey Gunter MD Primary Care Provider Dr. Fausto Acosta III Unavailable [phone] Allergies Allergen (clinical drug ingredient) Drug/Non Drug Allergy documented on EMR Reaction Allergy Type Onset Date Status Ragweed Unknown Allergy Active [place] Benson Unknown Allergy Active REASON FOR VISIT Follow [...] Date Provider Diagnosis Fausto Felder III, MD [address] [place] [address] [place] [address] 06/01/2024 Fausto Felder Stage IIA Hodgkin's disease [...] * José Miguel TAYLOROB:1955 (69 yo M)Acc No.[id number]:06/01/2024 Progress Notes Patient: Louis SIEGEL Provider: Mayur Felder MD :1955 A ge:68 Y S ex:Male Date:06/01/2024 Address:[address] [place] [address], [address], [place], [id number] Pcp:Chauncey Gunter MD Subjective: * Chief Complaints: [...] with no children. 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 * Social History: T obacco Use: T obacco Use/Smoking P atient is a n onsmoker A dditional Findings: Tobacco Non-User A ggressive non-smoker H e was born [place], [place]. 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 * Medications: T aking Adult Aspirin EC Low Strength 81 MG Tablet Delayed Release 1 tablet Orally Once a day , Taking Labetalol HCl 200 MG Tablet 1 tablet Orally Twice a day , Taking hydroCHLOROthiazide 25 MG Tablet TAKE 1 TABLET BY MOUTH EVERY DAY Oral , Medication List reviewed and reconciled with the patient * Allergies: R agweed, Benson: Allergy. Objective: * Vitals: * Examination: G [...] 0 06/01/2024 Generated for Moisés rojas/Christa/eTransmitting on: 07/14/2024 12:17 PM EST History and Physical Notes * [...]
--- NOTE | 2025-05-13 10:10 | MHC.OFFVIS ---
Intake Visit Reasons: elevated PSA- 7.47 SET UA Intake Note: Reason for Visit: New Patient Elevated PSA Urology Meds: None Blood Thinners: None Antibiotic Allergy: None Labs: PSA Ultra: 7.47(03/26/25) PSA 6.47 (04/08/2024) Imaging: None Last PVR: None Family History: Prostate Cancer? No Bladder Cancer? No Kidney Cancer? No Smoking History? Never Previous Urology? 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 He is a patient of . He is seen for the following urologic conditions - elevated PSA Gradual increase in PSA HORACIO 2+ prostate benign Start finasteride Bladder ultrasound Six-month follow-up repeat PSA Elevated PSA Labs - 08/15 3.5, 04/19 6.5, 03/20 7.5 PFSH Medical History Tubular adenoma Hx of radiation therapy History of chemotherapy Hodgkins disease Syncope High blood pressure Surgical History Hx of surgical procedure H/O colonoscopy H/O rectal polypectomy Family History Father Multiple sclerosis Mother Breast cancer Social History Housing: House Alcohol intake: current Alcohol intake frequency: a few times a week Patient Tobacco Use Status: Never used Tobacco Tobacco use type: Cigarette e-Cigarette/Vaping Use: Never Used Second Hand Smoke Exposure: No Substance Use Type: Marijuana service: No Current occupational status: unemployed Cognitive needs: No Hearing needs: No Vision needs: Yes (Glasses) Review of Systems Const Denies chills and Denies fever(s) Card Reports no additional complaints and Denies syncope Resp Denies cough GI Denies abdominal pain and Denies heartburn Reports as per HPI and Denies change in libido Neuro Denies syncope Psych Denies change in libido Endo Denies change in libido Physical Exam Const General: cooperative, healthy appearing, comfortable and no acute distress Orientation/consciousness: patient oriented x3 HEENT Face and sinus: Yes normal facial exam Mouth: moist mucous membranes Neck Neck: Yes normal visual inspection, Yes full ROM and Yes trachea midline Chest Chest palpation & inspection: normal inspection of the chest Resp Effort & Inspection: normal respiratory effort, able to speak in complete sentences and no respiratory distress GI Inspection: Yes normal to inspection Rectal Exam - Male: Yes normal sphincter tone and Yes prostate normal Male General Exam: Yes normal external exam Penis: normal penis and circumcised Meatus: meatus normal Scrotum: scrotum normal Testes: Testes normal Back/Spine/Pelvis Cervical Spine: normal cervical lordosis Thoracic/Lumbar Spine: thoracic and lumbar spine normal to inspection Skin General skin exam: no rashes or lesions noted Neuro General: patient oriented x3, gait normal, tone normal and moves all extremities Extrem General: Yes normal to inspection and Yes capillary refill normal Assessment & Plan Assessment & Plan (1) Elevated PSA: Code(s): R97.20 - Elevated prostate specific antigen [PSA] Category: Medical (2) BPH w urinary obs/LUTS: Code(s): N40.1 - Benign prostatic hyperplasia with lower urinary tract symptoms; N13.8 - Other obstructive and reflux uropathy Category: Medical Plan Six-month follow-up PSA office Orders: Orders PSA,Total (Free>4and<10) 6 Months R97.20 - Elevated prostate specific antigen [PSA] US bladder Today R97.20 - Elevated prostate specific antigen [PSA] Medications: New finasteride 5 mg PO DAILY 90 tabs 1RF 90 days R97.20 - Elevated prostate specific antigen [PSA] Patient Instructions: This note is constructed using voice recognition software. While every effort has been made to ensure accuracy collection team lead errors may have been included. Imaging studies, laboratory and physical exam results were discussed and reviewed in detail. No major barriers to patient understanding were identified. An opportunity to ask questions regarding the treatment plan was provided. All questions were answered. The patient expressed understanding and agreement with the above treatment plan. The patient is aware they should contact our office by phone for worsening of their current condition or the appearance of new urologic symptoms. Compliance is encouraged with any medications and followup testing that is ordered. It is a privilege to participate in the urologic care of your patient. If you have any questions or concerns regarding treatment for the above conditions, or other urologic issues, please do not hesitate to contact me. The office telephone contact is [phone]. Sincerely, Dr Valeriy Oseguera MD, [facility] - Urology Compassionate Specialist Care for the Genitourinary System Coding Level of Care Code New Pt Level 4 (22596) Diagnoses Elevated PSA R97.20 BPH w urinary obs/LUTS N40.1; N13.8
--- OUTSIDE RECORDS SUMMARY | 2025-05-13 12:17 | XMS_ITS | Clinical Summary ---
Author Organization [employer] Address [address] [facility] [address] [place] [address] Care Team Providers Care Ornamental Metal Erector Apprentice Name Role Phone Unavailable Primary Care Provider [...] patient's age to complete this topic [place] [address] [address] [place] [address] [place]AND[place], [place], [place]
--- OUTSIDE RECORDS SUMMARY | 2025-05-13 12:17 | XMS_ITS | Patient Health Record ---
Author Organization [facility] Address [address] [place] [address] Care Team Providers Care Project Control Manager Name Role Phone Chauncey Gunter MD Primary [...] Status Risk Notes Problem Colon cancer screening (632782917) Colon cancer screening (Z12.11) Active confirmed Problem Long-term current use of antiplatelet drug (321959877264122) Long-term use of aspirin therapy (Z79.82) Active confirmed Problem Long-term current use of drug therapy (781540739) senior care current use of diuretic (Z79.899) Active confirmed Plan Of Treatment Future Test Test Name Order Date COLONOSCOPY 03/04/2013 Insurance Providers Payer Name Payer Address Payer Phone Subscriber Number Group Number Insured Name Patient Relationship to Insured Coverage Start Date Coverage End Date AET HEALTHCARE [address] [place], [place] [id number] ANYA TAYLOR Self - patient is the insured [id number] [address] [place] [address] [id number] ANYA TAYLOR Self - patient is the insured Medical (General) History Medical History History ICD Code Hypertension Hodgkin's disease stage II a 1995 status post XRT and chemotherapy Colon polyps, history of tub ular adenoma, last colonoscopy 2013, ten-year followup Surgical History Surgery Date(Month/Year) Mediastinoscopy 1995
--- OUTSIDE RECORDS SUMMARY | 2025-05-13 12:17 | XMS_ITS | Clinical Summary ---
Author Organization [facility] Address [address] [place] [address] Phone Care Team Providers Care Shellfish Dredge Operator Name Role Phone Chauncey Gunter MD Primary Care Provider [phone] Social History Tobacco Use Types Packs/Day Years [...] Group ID:SCO Type:Not on file Address: [address] [place] [address] Care Teams Shellfish Dredge Operator Relationship Specialty Start Date End Date Chauncey Gunter MD [address] [facility] [address] [place] [id number] PCP - General Internal Medicine 04/15/24
--- OUTSIDE RECORDS SUMMARY | 2025-05-13 12:17 | XMS_ITS | Patient Health Record ---
Author Organization Fausto Felder III, MD Address [address] [place] [address] [place] [address] Care Team Providers Care Sales Market Leader Name Role Phone Chauncey Gunter MD Primary Care Provider Dr. Fausto Acosta III Unavailable Allergies Allergen (clinical drug ingredient) Drug/Non Drug Allergy documented on EMR Reaction Allergy Type Onset Date Status Ragweed Unknown Allergy Active [place] Unknown Allergy Active Reason For Referral No [...] Problem Status W/U Status Risk Notes Problem 278869383 Overweight (E66.3) Active confirmed His weight is n ow in the normal range and this problem has resolved. Problem 67657205 Hypertension (I10) Active confirmed His blood press ure is well controlled today At 130/84 andno change in his regimen was indicated. Problem 18456999 Colonic polyp (K63.5) Active confirmed His polyp was a tubular adenoma and routine five-year colonoscopies are indicated. He and I discussed this and he is aware of the necessity for this and will address this issue with his application support analyst and primary care physician. Problem 079069730 Stage IIA Hodgkin's disease (C81.90) Active confirmed [...] End Date A[employer] Medicare [address] [place] [address] [id number] Louis Waters Self - patient is the insured MEDICARE NGS [address] [place] [address] [id number] Louis Waters Self - patient is the insured MEDICAID [place] [address] [place], [place] [id number] [phone] [id number] Louis Waters Self - patient is the [...]
== END 2025-05-13 10:42 | disposition home or self-care (01) ==
LOC: HO.HUSH 10:00
PROVIDERS: Visit Provider Urology
DX: R97.20 Elevated prostate specific antigen [PSA] (principal); N40.1 Benign prostatic hyperplasia with lower urinary tract symptoms; N13.8 Other obstructive and reflux uropathy
CPT/HCPCS: 99204

== ENCOUNTER → 2025-05-13 09:59 | Outpatient (BNVA) | payer OTHER, SELFPAY | PROVIDERS: Visit Provider Urology | DX: R97.20 Elevated prostate specific antigen [PSA] (principal); N40.1 Benign prostatic hyperplasia with lower urinary tract symptoms; N13.8 Other obstructive and reflux uropathy | CPT/HCPCS: 99202 ==